=== PATIENT | female | born 1990 | race Caucasian/White ===

== ENCOUNTER 2017-08-07 15:33 | Emergency (ER) | payer MEDICAID, SELFPAY ==
[2017-08-07 15:34] VITALS: BP 155/108; PULSE 75; RESP 16; TEMP 36.7; O2SAT 96; BMI 49.4
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
[2017-08-07] MEDS: Acetaminophen 500 MG Tablet 1000 MG PO (16:28)
[2017-08-07 16:35] LABS: Absolute Lymphocyte Count 2.01 X10^3/ul (0.83-4.51); Absolute Neutrophil Count 3.5 X10^3/uL (2.0-7.7); Basophil# 0.03 X10^3/uL; Basophil% 0.5 % (0-1); Eosinophil# 0.14 X10^3/uL; Eosinophils% 2.3 % (0-5); Hematocrit 45.4 % (37-47); Hemoglobin 15.9 g/dl (12.0-15.0); Lymphocyte # 2.01 X10^3/ul (4.0); Lymphocyte % 32.5 % (19-41); Mean Corpuscular Hgb 30.6 pg (27.0-32.0); Mean Corpuscular Volume 87.5 fL (81-99); Mean Platelet Vol. 10.2 fl (6.2-12.0); Monocyte# 0.53 X10^3/uL; Monocyte% 8.6 % (0-10); Neutrophil # 3.46 X10^3/uL (2.7-7.7); Neutrophil % 55.8 % (47-70); Platelet Count 259 K/mm3 (150-450); RBC Distribution Width CV 12.8 % (11.6-14.6); RBC Distribution Width SD 40.9 fl (35.1-43.9); Red Blood Count 5.19 M/mm3 (4.2-5.4); White Blood Count 6.2 K/mm3 (4.4-11.0)
[2017-08-07 16:39] LABS: Bacteria 0 SEEN /hpf (None Seen); Mucous, Urine 0 SEEN /hpf (<or=2+); Red Blood Cells-Urine 0 SEEN /hpf (0-5)
[2017-08-07 16:40] LABS: POSITIVE COUNT NO; POSITIVE DIFFERENTIAL NO; POSITIVE MORPHOLOGY NO
[2017-08-07 16:46] LABS: Color, Urine Yellow (Yellow); Glucose, Dipstick Normal (Normal); Ketone-Dipstick Negative (Negative); Leukocyte Esterase-Dipstick 25 /ul (Negative); Nitrite-Dipstick Negative (Negative); Occult Blood-Urine 25 /ul (Negative); Protein-Dipstick 30 mg/dl (Negative); Urine Bilirubin Dipstick Negative (Negative); Urine Clarity Clear (Clear); Urine Urobilinogen 1 mg/dl (Normal)
[2017-08-07 16:48] LABS: Internal QC Validated? YES +Cl - CLEAR BKGD; Pregnancy, Urine Negative Negative
[2017-08-07 16:53] LABS: Squamous Epithelial Cells - UA 0-5 SEEN /hpf (5-10)
[2017-08-07 16:54] LABS: White Blood Cells 0-5 SEEN /hpf (0-5)
[2017-08-07 16:55] LABS: Anion Gap 7 (5-15); BUN 14 mg/dL (7-18); BUN/Creat Ratio 18.5 RATIO (10-20); Chloride 109 mmol/L (98-107); Creatinine, Serum 0.76 mg/dL (0.55-1.02); EST Glomerular Filtration Rate 100 mL/min (>60); Est Glom Filt Rate - Afr Amer 121 mL/min (>60); Glucose 93 mg/dL (74-106); Potassium 3.9 mmol/L (3.5-5.1); Sodium Level 140 mmol/L (136-145); Thyroid Stim Hormone (TSH) 0.74 uIU/mL (0.358-3.74)
[2017-08-07 16:57] LABS: Alcohol, Blood (Medical)-Serum < 3.0 mg/dL
[2017-08-07 17:01] LABS: Amphetamine Urine VISTA NEGATIVE (<1000 ng/mL); Barbiturate Urine VISTA NEGATIVE (< 200 ng/mL); Benzodiazepine Urine VISTA POSITIVE (< 200 ng/mL); Cocaine Urine VISTA NEGATIVE (< 300 ng/mL); Ecstacy Urine VISTA NEGATIVE (< 500 ng/mL); Methadone Urine VISTA NEGATIVE (< 300 ng/mL); PCP Urine VISTA NEGATIVE (< 25 ng/mL); THC Urine VISTA POSITIVE (< 50 ng/mL); Vista UDS pH Range 6
--- NOTE | 2017-08-07 17:16 | ED.RN ---
TALKED TO STEFANY SAWYER FROM THE COUNSELING CENTER. HE JUST GOT DOWN TO [facility] SO IT WILL BE SEVERAL HOURS BEFORE HE GETS HERE TO SEE PATIENT
[2017-08-07 18:33] VITALS: BP 114/73; PULSE 56; RESP 16; O2SAT 99
--- NOTE | 2017-08-07 19:51 | NURSING ---
the order for the adacel is not crossing over in the MAR doctor and IS were made aware. paper about the vaccination was given to the pt and understands why she is getting the medication. let the pt know that we are waiting for crisis to come. the crisis counselor is currently at another hospital and unsure on the timeframe. let the pt know that when a room up front becomes available we will move her up front to be closer to the nurses station where she can be monitored.
--- NOTE | 2017-08-07 19:57 | ED.RN ---
STEFANY FROM CRISIS IS HERE TO SEE PATIENT.
--- NOTE | 2017-08-07 20:39 | ED.DEP ---
ED Disposition - Plan for ED Patient: Disposition: Home or Assisted Living Chief Complaint: Mental Health Instructions: ED Depression, ED Laceration All Referrals: Luis Fernando Vásquez MD [Primary Care Provider] - 7 Days for suture removal Additional Instructions: Please continue taking your antidepressants as prescribed. Please follow-up with the grief counselor as being arranged by her grandfather. Please also follow-up as soon as possible with your psychiatrist at the counseling center. Please have your sutures removed from your arm laceration in 7-10 days. You may use antibiotic ointment on the wound to help keep it moist and prevent infection. You may start washing it with gentle soap and water tomorrow. If you notice any pus oozing from it, severe pain, swelling or redness, please come back to the emergency department for a wound check. You may have any healthcare provider remove the sutures for you. You may use [id number] pain medication as needed for pain. If You have any worsening in your condition or any new concerning symptoms, such as suicidal thoughts or feelings, or any other concerns, please return immediately to the emergency department or call 911.
--- NOTE | 2017-08-07 20:42 | DCINST.ED_ITS ---
ED Disposition - Plan for ED Patient: Disposition: Home or Assisted Living Chief Complaint: Mental Health Instructions: ED Depression, ED Laceration All Referrals: Luis Fernando Vásquez MD [Primary Care Provider] - 7 Days for suture removal Additional Instructions: Please continue taking your antidepressants as prescribed. Please follow-up with the grief counselor as being arranged by her grandfather. Please also follow-up as soon as possible with your psychiatrist at the counseling center. Please have your sutures removed from your arm laceration in 7-10 days. You may use antibiotic ointment on the wound to help keep it moist and prevent infection. You may start washing it with gentle soap and water tomorrow. If you notice any pus oozing from it, severe pain, swelling or redness, please come back to the emergency department for a wound check. You may have any healthcare provider remove the sutures for you. You may use [id number] pain medication as needed for pain. If You have any worsening in your condition or any new concerning symptoms, such as suicidal thoughts or feelings, or any other concerns, please return immediately to the emergency department or call 911.
[2017-08-07 21:17] VITALS: BP 147/68; PULSE 76; RESP 16; O2SAT 98
== END 2017-08-07 21:18 | disposition home or self-care (01) ==
PROVIDERS: Emergency Provider Emergency Medicine; Family Provider Family Medicine; PCP Family Medicine
DX: S51.812A Laceration without foreign body of left forearm, initial encounter (principal); X78.8XXA Intentional self-harm by other sharp object, initial encounter; Y93.9 Activity, unspecified; Y92.9 Unspecified place or not applicable; Y99.9 Unspecified external cause status; Z23 Encounter for immunization; E28.2 Polycystic ovarian syndrome; F32.9 Major depressive disorder, single episode, unspecified; F41.9 Anxiety disorder, unspecified; E66.9 Obesity, unspecified; Z79.899 Other long term (current) drug therapy
CPT/HCPCS: 12034; 36415; 80048; 80307; 80320; 81001; 81025; 84443; 85025; 90471; 90715; 99284; G0480

== ENCOUNTER → 2017-09-01 18:44 | Outpatient (CLI) | payer MEDICAID, SELFPAY ==
[2017-09-07 11:37] LABS: HPV Reflexed? NOT INDICATED
== END ==
PROVIDERS: Family Provider Family Medicine; PCP Family Medicine; Visit Provider Obstetrics & Gynecology
DX: Z12.4 Encounter for screening for malignant neoplasm of cervix (principal)
CPT/HCPCS: 88175; G0145

== ENCOUNTER → 2017-09-02 13:45 | Outpatient (CLI) | payer MEDICAID, SELFPAY ==
[2017-09-02 15:25] LABS: Cholesterol 195 mg/dL (200); Glucose 77 mg/dL (74-106); High Density Lipoprotein 39 mg/dL; Thyroid Stim Hormone (TSH) 1.39 uIU/mL (0.358-3.74); Triglycerides 253 mg/dL; Very Low Density Lipoprotein 51 mg/dL (5-40)
[2017-09-07 11:34] LABS: Vitamin D 1,25-Dihydroxy 44.8 pg/mL (19.9-79.3)
== END ==
PROVIDERS: Family Provider Family Medicine; PCP Family Medicine; Visit Provider Obstetrics & Gynecology
DX: E01.0 Iodine-deficiency related diffuse (endemic) goiter (principal); Z12.4 Encounter for screening for malignant neoplasm of cervix; Z13.220 Encounter for screening for lipoid disorders; Z13.1 Encounter for screening for diabetes mellitus; Z13.21 Encounter for screening for nutritional disorder
CPT/HCPCS: 36415; 80061; 82652; 82947; 84443

== ENCOUNTER → 2017-09-07 10:57 | Outpatient (CLI) | payer MEDICAID, SELFPAY ==
--- NOTE | 2017-09-07 10:58 | US_ITS ---
STUDY: THYROID ULTRASOUND REASON FOR EXAM: Female, 26 years old. Thyromegaly TECHNIQUE: Ultrasound evaluation of the thyroid was performed with real-time and static bishop-scale imaging. COMPARISON: None. FINDINGS: RIGHT LOBE: The right lobe of the thyroid gland measures 5.8 x 1.6 x 1.5 cm. There is a homogeneous echotexture. There are no demonstrated solid, cystic or complex lesions. LEFT LOBE: The left lobe of the thyroid gland measures 5.7 x 1.4 x 1.4 cm. There is a homogeneous echotexture. There are no demonstrated solid, cystic or complex lesions. ISTHMUS: The isthmus measures 3 mm. The regional lymph nodes are normal. US/Thyroid IMPRESSION: Normal ultrasound examination of the thyroid. Electronically Signed: Kwan Corey DO at 8:17 EDT Tel , Service support ,
== END ==
PROVIDERS: Family Provider Family Medicine; PCP Family Medicine; Visit Provider Obstetrics & Gynecology
DX: E01.0 Iodine-deficiency related diffuse (endemic) goiter (principal); Z12.4 Encounter for screening for malignant neoplasm of cervix; Z13.220 Encounter for screening for lipoid disorders; Z13.1 Encounter for screening for diabetes mellitus; Z13.21 Encounter for screening for nutritional disorder
CPT/HCPCS: 76536

== ENCOUNTER → 2018-10-02 15:24 | Outpatient (CLI) | payer SELFPAY ==
[2018-10-02 17:25] LABS: Amphetamine Urine VISTA NEGATIVE (<1000 ng/mL); Barbiturate Urine VISTA NEGATIVE (< 200 ng/mL); Benzodiazepine Urine VISTA NEGATIVE (< 200 ng/mL); Cocaine Urine VISTA NEGATIVE (< 300 ng/mL); Ecstacy Urine VISTA NEGATIVE (< 500 ng/mL); Methadone Urine VISTA NEGATIVE (< 300 ng/mL); PCP Urine VISTA NEGATIVE (< 25 ng/mL); THC Urine VISTA POSITIVE (< 50 ng/mL); Vista UDS pH Range 7
[2018-10-10 17:59] LABS: Amphetamine Ur Confirm Negative (Cutoff=500)
== END ==
LOC: LAB 15:28
PROVIDERS: Family Provider Family Medicine; PCP Family Medicine; Referring Provider Psychiatry & Neurology Psychiatry; Visit Provider Psychiatry & Neurology Psychiatry
DX: Z79.899 Other long term (current) drug therapy (principal); F19.10 Other psychoactive substance abuse, uncomplicated
CPT/HCPCS: 80307; 80346

== ENCOUNTER → 2019-03-22 16:47 | Outpatient (CLI) | payer SELFPAY ==
[2019-03-22 17:26] LABS: Amphetamine Urine VISTA NEGATIVE (<1000 ng/mL); Barbiturate Urine VISTA NEGATIVE (< 200 ng/mL); Benzodiazepine Urine VISTA NEGATIVE (< 200 ng/mL); Cocaine Urine VISTA NEGATIVE (< 300 ng/mL); Ecstacy Urine VISTA NEGATIVE (< 500 ng/mL); Methadone Urine VISTA NEGATIVE (< 300 ng/mL); PCP Urine VISTA NEGATIVE (< 25 ng/mL); THC Urine VISTA POSITIVE (< 50 ng/mL); Vista UDS pH Range 7
== END ==
PROVIDERS: Family Provider Family Medicine; PCP Family Medicine; Referring Provider Psychiatry & Neurology Psychiatry; Visit Provider Psychiatry & Neurology Psychiatry
DX: F19.10 Other psychoactive substance abuse, uncomplicated (principal); R53.83 Other fatigue; Z79.899 Other long term (current) drug therapy
CPT/HCPCS: 80307

== ENCOUNTER 2019-06-06 11:28 | Emergency (ER) | payer SELFPAY ==
[2019-06-06 11:29] VITALS: BP 169/112; PULSE 98; RESP 16; TEMP 36.7; O2SAT 99; BMI 50.1
--- NOTE | 2019-06-06 11:45 | ED.DCSUM_ITS ---
History of Present Illness Chief Complaint: Abscess Informant: Patient Onset: Days - 3-4 Context: Gradual Onset Timing: Continuous Quality: sore Location: right axilla Current Severity: Moderate Maximum Severity: Moderate Worsened by: palpation Relieved by: leaving it alone Associated Symptoms: drained yellow material at one point Narrative: Started as a pimple in her right armpit. Has been growing and getting larger and more painful. No systemic symptoms. Drained a small amount of purulent discharge out of there, but now it will not drain. Never had this before. Does shave her axillary areas. Prior similar symptoms: No Recent Illness/Hospitalization: No - Past Medical History (1) PCOS (polycystic ovarian syndrome) Status: Chronic Comment: weight loss and then femara Past Medical History - Allergies and Home Meds Allergies/Adverse Reactions: Allergies buspirone [From BuSpar] Allergy (Verified 06/06/19 11:28) Nausea Primary Care Physician: Luis Fernando Vásquez MD [NON-STAFF] - Lives: With Family Smoking Status: Current every day smoker Review of Systems General: Denies: Chills, Fever, Sweats Musculoskeletal: Reports: Extremity Pain - R axilla Skin: Reports: Abscess. Denies: Rash Neurological: Denies: Weakness, Numbness Physical Exam Vital Signs/Narrative: Vital Signs Temp Pulse Resp BP Pulse Ox 06/06/19 11:29 98.1 F 98 16 169/112 H 99 Inital Vital Signs reviewed: Yes General: Well nourished, Well developed, Obese, No Acute Distress - well- appearing Head: Normocephalic, Atraumatic Skin: Normal color, No rash, No Trauma, - - right axillary abscess, approx 4-5cm diameter with papular area more anteriorly at perimeter of abscess; no spontaneous drainage able to be expressed from anywhere. Neurological: Alert, Oriented x3, Cranial nerves II-XII grossly intact, Normal Strength, Normal Sensation, Normal Gait Psychological: Normal affect, Normal Mood Diagnostic/Tx/Re-eval - Medical Decision Making Abscess was opened and drained, deloculated, irrigated, packed. She states she did drink quite a bit of pus yesterday. Explained why it was not loaded with pus today. She needed incision and drainage, will place her on Bactrim, first dose given here, she tolerated procedure very well and was not in a lot of pain, advised to return and advised to remove packing in 48 hours Procedures Procedure(s): Incision and drainage complex, cutaneous abscess right axilla. Sterile prep and drape with isopropanol for local anesthesia, 7 cc 1% plain lidocaine, followed by chlorhexidine and incision with #11 blade at papular area. This was at the periphery of the large abscess cavity, so another incision was made centrally which was also anesthetized. Small amount of purulent material was expressed, but the abscess cavity was large. It was deloculated. It was irrigated and packed with 1/4 inch sterile gauze strip and dressed with bacitracin. Tolerated well, no complications. ED Disposition - Plan for ED Patient: Disposition: Home or Assisted Living Diagnosis: Cutaneous abscess of axilla Instructions: ABSCESS, Incision and Drainage, MRSA SKIN INFECTION, Suspected or Confirmed Prescriptions: Sulfamethoxazole/Trimethoprim [Bactrim Ds Tablet] 1 ea PO BID 10 Days #20 tab Transmission Status: Pending to [facility] Referrals: Luis Fernando Vásquez MD [NON-STAFF] - 3-5 Days if not improving Additional Instructions: Remove strip gauze in 2 days and discard, change dressing daily and after urine you remove the strip gauze. Place antibiotic ointment on the gauze when you change it. If getting worse, return to ER.
[2019-06-06] MEDS: Smz/Tmp Ds Tablet 1 TABLET PO (11:50)
[2019-06-06] MEDS: Ondansetron ODT 4 MG Tablet 8 MG PO (13:22)
[2019-06-06 13:26] VITALS: RESP 18
== END 2019-06-06 13:28 | disposition home or self-care (01) ==
PROVIDERS: Emergency Provider Emergency Medicine
DX: L02.411 Cutaneous abscess of right axilla (principal); E28.2 Polycystic ovarian syndrome; F17.200 Nicotine dependence, unspecified, uncomplicated
CPT/HCPCS: 10060; 99283

== ENCOUNTER → 2019-09-04 | Outpatient (CLI) | payer BC, SELFPAY ==
[2019-09-04 08:32] VITALS: BMI 57.9
[2019-09-04 12:24] LABS: Internal QC Validated? YES +Cl - CLEAR BKGD; Pregnancy, Serum, hCG Quali. NEGATIVE Negative
[2019-09-04 12:36] LABS: Hemoglobin A1c 5.2 % (4.2-6.3)
[2019-09-04 12:46] LABS: ALB/GLOB Ratio 0.9 RATIO (0.9-2.4); AST(SGOT) 18 U/L (15-37); Alanine Aminotransfer ALT/SGPT 31 U/L (13-56); Albumin, Serum 3.4 g/dL (3.2-5.0); Alkaline Phosphatase 59 U/L (45-117); Anion Gap 8 (5-15); BUN 16 mg/dL (7-18); BUN/Creat Ratio 20.4 RATIO (10-20); Calcium,Total 8.6 mg/dL (8.5-10.1); Chloride 111 mmol/L (98-107); Creatinine, Serum 0.78 mg/dL (0.55-1.02); EST Glomerular Filtration Rate 94 mL/min (>60); Est Glom Filt Rate - Afr Amer 114 mL/min (>60); Globulin 3.6 g/dL (2.2-4.2); Glucose 96 mg/dL (74-106); Potassium 3.7 mmol/L (3.5-5.1); Prolactin 9.3 ng/mL; Sodium Level 141 mmol/L (136-145); Thyroid Stim Hormone (TSH) 2.05 uIU/mL (0.358-3.74)
[2019-09-07 08:07] LABS: Testosterone, Free 0.41 ng/dL (0.10-0.85); Testosterone, Total 34 ng/dL (8-48)
[2019-09-07 12:12] LABS: DHEA Sulfate 68.2 ug/dL (84.8-378.0)
== END | disposition home or self-care (01) ==
PROVIDERS: Referring Provider Internal Medicine Endocrinology, Diabetes & Metabolism; Visit Provider Internal Medicine Endocrinology, Diabetes & Metabolism
DX: N91.1 Secondary amenorrhea (principal)
CPT/HCPCS: 36415; 80053; 82627; 83036; 84146; 84402; 84403; 84443; 84703; 82626

== ENCOUNTER 2019-11-21 11:15 | Emergency (ER) | payer BC, SELFPAY ==
[2019-10-23 10:01] VITALS: BMI 50.1
[2019-11-21 11:17] VITALS: BP 185/120; PULSE 74; RESP 20; TEMP 36; O2SAT 98; BMI 56.5
[2019-11-21] MEDS: Ondansetron 4 MG/2 ML Vial IV (12:03)
[2019-11-21] MEDS: Morphine 4 MG/ML Syringe IV (12:04)
[2019-11-21] MEDS: 0.9% Normal Saline 1,000 ML 1000 ML IV (12:05)
--- NOTE | 2019-11-21 12:08 | ED.VISSUMM ---
- ER Visit Summary Date of Service: 11/21/19 Chief Complaint: Abdominal pain History of Present Illness: The patient is a 28 F who presents with abdominal pain that is been getting worse over the past 8 days. Patient states the pain is been constant but waxes and wanes. Patient describes pain as burning and cramping. Patient states the pain is diffuse across her abdomen. Patient states the pain is worse with eating. Patient states the pain gets worse immediately when she eats. Patient admits to nausea, vomiting, and diarrhea. Patient denies any hematemesis or coffee-ground emesis. Patient denies any melena or hematochezia. Patient denies any dysuria or hematuria. Physical Examination: Vital signs are stable. Patient is afebrile. Patient is in no acute distress. Oral mucosa is pink and moist. Neck is supple. Trachea is midline. There is no JVD. Heart was regular rate and rhythm. Lungs are clear and equal bilaterally. Abdomen is soft. Bowel sounds are normal. There is diffuse tenderness. There is no rebound or guarding noted. Cranial nerves II through XII are intact. There are no focal motor or sensory deficits noted. Extremities are intact. There is no calf tenderness or edema. Test Results: CBC, comprehensive metabolic profile, hCG, and urinalysis were obtained were all within normal limits. Emergency Department Course and Treatment: Patient was given IV fluids, morphine, and Zofran here. Patient was feeling better on reevaluation. Patient was given a prescription for Zofran ODT. Patient was instructed to start with a liquid diet and advance to a bland diet and then to a regular diet as she feels better. Patient was instructed to drink small sips of water frequently. Patient was instructed to return if worse in any way. Patient understood and was agreeable with the plan. All questions were answered. Disposition: Discharge home Impression: 1. Abdominal pain 2. Nausea, vomiting, and diarrhea This note was generated with [employer] dictation software. It may contain incorrect words, spelling, and punctuation that were not noted in review of the chart prior to signing ED Disposition - Plan for ED Patient: Disposition: Home or Assisted Living Diagnosis: Abdominal pain, Nausea, vomiting, and diarrhea Instructions: ED Abdominal Pain Unkn Cause Fem, ED Nausea Vomiting Adult Prescriptions: Ondansetron [Zofran Odt] 4 mg PO Q8H PRN PRN #10 tab PRN Reason: Nausea Prescription Printed Referrals: Care Physician,No Primary [Primary Care Provider] -
[2019-11-21 12:09] LABS: Absolute Lymphocyte Count 1.91 X10^3/uL (0.83-4.51); Absolute Neutrophil Count 7.6 X10^3/uL (2.0-7.7); Basophil# 0.06 X10^3/uL; Basophil% 0.6 % (0-1); Eosinophil# 0.13 X10^3/uL; Eosinophils% 1.3 % (0-5); Hematocrit 46.7 % (37-47); Hemoglobin 15.8 g/dL (12.0-15.0); Lymphocyte # 1.91 X10^3/ul (4.0); Lymphocyte % 18.4 % (19-41); Mean Corp Hgb Conc 33.8 g/dL (32-36); Mean Corpuscular Hgb 29.9 pg (27.0-32.0); Mean Corpuscular Volume 88.3 fL (81-99); Mean Platelet Vol. 9.6 fl (6.2-12.0); Monocyte% 5.8 % (0-10); NRBC Flagged by Analyzer 0 % (0-5); Neutrophil # 7.63 X10^3/uL (2.7-7.7); Neutrophil % 73.3 % (47-70); Platelet Count 313 K/mm3 (150-450); RBC Distribution Width CV 12.3 % (11.6-14.6); RBC Distribution Width SD 39.9 fl (35.1-43.9); Red Blood Count 5.29 M/mm3 (4.2-5.4); White Blood Count 10.4 K/mm3 (4.4-11.0)
[2019-11-21 12:34] LABS: AST(SGOT) 37 U/L (15-37); Alanine Aminotransfer ALT/SGPT 57 U/L (13-56); Albumin, Serum 3.8 g/dL (3.2-5.0); Alkaline Phosphatase 52 U/L (45-117); Anion Gap 8 (5-15); BUN 16 mg/dL (7-18); BUN/Creat Ratio 18.2 RATIO (10-20); Calcium,Total 9.5 mg/dL (8.5-10.1); Chloride 111 mmol/L (98-107); Creatinine, Serum 0.88 mg/dL (0.55-1.02); EST Glomerular Filtration Rate 82 mL/min (>60); Est Glom Filt Rate - Afr Amer 99 mL/min (>60); Estimated Creatinine Clearance 94.21 ml/min; Globulin 3.7 g/dL (2.2-4.2); Glucose 116 mg/dL (74-106); Internal QC Validated? YES +Cl - CLEAR BKGD; Potassium 3.8 mmol/L (3.5-5.1); Pregnancy, Serum, hCG Quali. NEGATIVE Negative; Protein, Total 7.5 g/dL (6.4-8.2); Sodium Level 141 mmol/L (136-145)
[2019-11-21 13:56] LABS: Mucous, Urine 0 SEEN /hpf (<or=2+); Red Blood Cells-Urine 0 SEEN /hpf (0-5); White Blood Cells 0 SEEN /hpf (0-5)
[2019-11-21 13:58] LABS: Color, Urine Yellow (Yellow); Glucose, Dipstick Normal (Normal); Ketone-Dipstick Negative (Negative); Leukocyte Esterase-Dipstick Negative /ul (Negative); Nitrite-Dipstick Negative (Negative); Occult Blood-Urine 10 /ul (Negative); Protein-Dipstick Negative (Negative); Urine Bilirubin Dipstick Negative (Negative); Urine Clarity Cloudy (Clear); Urine Urobilinogen Normal (Normal)
[2019-11-21 14:07] LABS: Amorphous Sediment 3+; Bacteria 1+ /hpf (None Seen); Squamous Epithelial Cells - UA 0-5 SEEN /hpf (5-10)
[2019-11-21 15:04] VITALS: BP 138/79; PULSE 74; PULSE 76; RESP 18; RESP 20; TEMP 36; O2SAT 98
== END 2019-11-21 15:05 | disposition home or self-care (01) ==
PROVIDERS: Emergency Provider Emergency Medicine
DX: R10.9 Unspecified abdominal pain (principal); R11.2 Nausea with vomiting, unspecified; R19.7 Diarrhea, unspecified; E28.2 Polycystic ovarian syndrome; F31.9 Bipolar disorder, unspecified; E66.9 Obesity, unspecified; Z72.0 Tobacco use; Z79.899 Other long term (current) drug therapy
CPT/HCPCS: 80053; 81001; 84703; 85025; 96361; 96374; 96375; 99283; J7030; A4216; J2405

== ENCOUNTER 2021-08-22 17:13 | Emergency (ER) | payer SELFPAY ==
[2021-08-22 17:14] VITALS: BP 206/122; PULSE 94; RESP 18; TEMP 36.3; O2SAT 98; BMI 54.8
[2021-08-22 17:16] VITALS: BP 206/122; PULSE 94; RESP 18; TEMP 36.3; O2SAT 98
--- NOTE | 2021-08-22 17:35 | ED.VIS.DENTA ---
HPI <MAURICIO NAIR - Last Filed: 08/22/21 22:03> History of Present Illness Chief Complaint: Dental Informant: patient Onset/Context/Timing Onset: Yesterday Current Severity: 12/27 Associated Symptoms Assocated Symptom - Dental: face swelling Narrative Narrative: Patient presents secondary to dental pain following bilateral upper and lower wisdom tooth extraction yesterday. Patient states pain was well controlled until the middle of last night, now complains of pain radiating to ears bilaterally. Patient states last dose of ibuprofen 600 mg was at 11 AM. Rating pain 7 out of 10. Patient denies fever, chills, nausea, or vomiting. PFSH <MAURICOI NAIR - Last Filed: 08/22/21 22:03> [facility] Medical History (Updated 08/22/21 @ 17:[address] Dora Payne MD) Depression Hormone deficiency PCOS (polycystic ovarian syndrome) Home Medications topiramate 25 mg PO BID 06/06/19 [History Last Taken Unknown] sertraline 100 mg tablet 150 mg PO DAILY tab 09/04/19 [History Last Taken Unknown] dextroamphetamine-amphetamine 30 mg PO DAILY 11/21/19 [History Last Taken Unknown] ondansetron 4 mg PO Q8H PRN PRN #10 tab 11/21/19 [Rx Last Taken Unknown] amoxicillin-pot clavulanate 1 tab PO BID 08/22/21 [History Last Taken Unknown] dexamethasone 2.25 mg PO DAILY 08/22/21 [History Last Taken Unknown] hydrocodone-acetaminophen 1 tab PO Q6H PRN 3 Days #10 tab 08/22/21 [Rx Last Taken Unknown] ibuprofen 600 mg PO Q6H PRN PRN 08/22/21 [History Last Taken Unknown] Allergy/AdvReac Type Severity Reaction Status Date / Time buspirone [From BuSpar] Allergy Nausea Verified 08/22/21 17:13 Family History Mother Cancer cervical Aunt Cancer cervical Grandmother Cancer cervical Other Diabetes Heart disease Surgical History History of cholecystectomy Social History Smoking Status: Current every day smoker tobacco type: cigarettes alcohol intake: never substance use type: does not use caffeine: Yes what type of physical activity do you participate in: walking and bicycling frequency: 3-4 times per week seatbelt use: always do you feel safe at home: Yes additional social history: [employer] Patient is currently unemployed ROS <MAURICIO NAIR - Last Filed: 08/22/21 22:03> ROS ED Constitutional Constitutional ED: Denies chills or fever(s) ENT ENT ED: Reports as per HPI, dental pain and ear pain bilateral Cardiovascular Cardiovascular: Denies chest pain Respiratory/Chest Respiratory/Chest: Denies cough or dyspnea Gastrointestinal Gastrointestinal: Denies nausea or vomiting Genitourinary Genitourinary ED: Denies dysuria Musculoskeletal Musculoskeletal: Denies myalgias Integumentary Denies rash Neurologic Neurologic: Denies headache(s) or weakness Psychiatric Psychiatric: Denies anxiety or depression EXAM <MAURICIO NAIR - Last Filed: 08/22/21 22:03> Physical Exam Const Vital Signs: 08/22/21 17:14 08/22/21 17:16 08/22/21 18:00 Temperature 97.4 F L 97.4 F L Temperature Source Temporal Temporal Pulse Rate 94 94 Respiratory Rate 18 18 Blood Pressure 206/122 H 206/122 H 173/92 H Blood Pressure Mean 150 150 119 Pulse Ox 98 98 Oxygen Delivery Method Room Air Room Air Positive well nourished and well developed General Appearance ED: well developed HEENT Reports normocephalic and moist oral mucous membranes HEENT Narrative: Minimal swelling around areas of extraction. Mouth: other Eyes PERRL and EOMs intact bilaterally Neck no lymphadenopathy and supple Resp normal respiratory effort and clear to auscultation bilaterally Cardio regular rate and regular rhythm GI non-tender Palpation: soft Neuro oriented x3 Sensorium / Orientation: alert Psych mental status grossly normal Skin no rashes or lesions noted <Dr. Dora Payne MD - Last Filed: 08/22/21 18:25> Physical Exam Const Vital Signs: 08/22/21 17:14 08/22/21 17:16 08/22/21 18:00 Temperature 97.4 F L 97.4 F L Temperature Source Temporal Temporal Pulse Rate 94 94 Respiratory Rate 18 18 Blood Pressure 206/122 H 206/122 H 173/92 H Blood Pressure Mean 150 150 119 Pulse Ox 98 98 Oxygen Delivery Method Room Air Room Air MDM <MAURICIO NAIR - Last Filed: 08/22/21 22:03> [facility] Treatment and Re-Evaluation Comments:: On arrival patient noted to have elevated blood pressure, repeat blood pressure trending downward at 191/127. Patient given dose of [place] prior to discharge and prescription for [place]. Patient states she already has follow-up scheduled at [facility] in [place] on the . Patient encouraged to keep that appointment. <Dr. Dora Payne MD - Last Filed: 08/22/21 18:25> [facility] Treatment and Re-Evaluation Comments:: Patient seen and evaluated with [employer] student. Patient presents secondary to increased pain after having 3 teeth extracted yesterday. Patient is currently on 600 mg ibuprofen along with antibiotics. Patient sitting upright in bed no acute distress. She speaking full sentences without difficulty. Head neck examination reveals dental extraction sites to be clean with no sign of infection. No trismus. Heart is regular rate and rhythm. Lung sounds are clear. Abdomen is soft and nontender. OARRS report was performed. Patient's had no narcotics. Patient be given a short course of [place] for pain control. Blood pressure significantly elevated on arrival at 206/122. At time of discharge systolic pressure was in the 170s. Encouraged to keep a close eye on this at home. Patient to follow with her dentist next week and return to the ER for worsening symptoms or concerns. Discharge Plan Triage Chief Complaint: Dental ED Provider: Dora Payne Dx/Rx/DC Orders Clinical Impression: Pain, dental Instructions: ED Dental Pain Prescriptions: New hydrocodone-acetaminophen 5-325 mg tablet 1 tab PO Q6H PRN (Reason: pain) 3 Days Qty: 10 RF: 0 No Action sertraline 100 mg tablet 150 mg PO DAILY RF: 0 topiramate 25 MG tablet 25 mg PO BID RF: 0 dextroamphetamine-amphetamine 30 MG capsule,extended release 24hr 30 mg PO DAILY RF: 0 ondansetron 4 MG tablet 4 mg PO Q8H PRN PRN (Reason: Nausea) Qty: 10 RF: 0 dexamethasone 0.75 mg tablet 2.25 mg PO DAILY RF: 0 ibuprofen 600 mg tablet 600 mg PO Q6H PRN PRN (Reason: Pain) RF: 0 amoxicillin-pot clavulanate 875-125 mg tablet 1 tab PO BID RF: 0 Primary Care Provider: Care Physician,No Primary Referrals: Care Physician,No Primary [Primary Care Provider] - Activity Restrictions/Additional Instructions: Follow-up with your dentist early next week if not improving. Disposition Disposition: Home, Self Care Discharge Date/Time: 08/22/21 18:00
[2021-08-22] MEDS: HYDROcodone Bitartrate/Apap 5/325 Tablet PO (17:59)
[2021-08-22 18:00] VITALS: BP 173/92
--- NOTE | 2021-08-22 18:01 | CM.ED ---
SW Note Referral Source: Case Find Referral Reason: No PCP and No Insurance SW met with patient briefly as she was being discharged. SW provided Healthcare Provider Directory as patient has no PCP and SW provided patient with financial aid director packet which included the medicaid application and information on [facility]. Patient appreciative. SW remains available if needs arise. Plan: Resources Provided Mallorie YEBOAH
== END 2021-08-22 18:00 | disposition home or self-care (01) ==
PROVIDERS: Emergency Provider Emergency Medicine; Visit Provider Emergency Medicine
DX: K08.89 Other specified disorders of teeth and supporting structures (principal); F32.A Depression, unspecified; F17.210 Nicotine dependence, cigarettes, uncomplicated; Z79.899 Other long term (current) drug therapy
CPT/HCPCS: 99283

== ENCOUNTER 2023-01-13 02:05 | Emergency (ER) | payer BC, SELFPAY ==
--- NOTE | 2023-01-13 05:39 | EDS_ITS ---
HPI History of Present Illness Informant: patient Onset/Context/Timing Onset: Days Context: Gradual Onset Timing: Continuous Current Severity: Mild Maximum Severity: Mild Narrative Narrative: 32-year-old female history of ADHD and bipolar.'s concern she has a abscess on her left lateral chest wall. Its been there about 3 days. She squeezed it and remove the little bit of blood. No pus. No fever. Denies IV drug abuse. Prior similar symptoms: Yes Recent Illness/Hospitalization: No PFSH PFSH Medical History (Updated 01/13/23 @ 05:[address] Markell Jacques MD) Depression Hormone deficiency PCOS (polycystic ovarian syndrome) Home Medications topiramate 25 mg tablet 25 mg PO BID 06/06/19 [History Last Taken Unknown] sertraline 100 mg tablet 150 mg PO DAILY 09/04/19 [History Last Taken Unknown] dextroamphetamine-amphetamine ER 30 mg 24hr capsule,extend release 30 mg PO DAILY 11/21/19 [History Last Taken Unknown] ondansetron 4 mg disintegrating tablet 4 mg PO Q8H PRN PRN Nausea #10 tabs 11/21/19 [Rx Last Taken Unknown] amoxicillin 875 mg-potassium clavulanate 125 mg tablet 1 tab PO BID 08/22/21 [History Last Taken Unknown] dexamethasone 0.75 mg tablet 2.25 mg PO DAILY 08/22/21 [History Last Taken Unknown] hydrocodone-acetaminophen 5-325mg 5mg-325mg 1 tab PO Q6H PRN pain 3 days #10 tabs 08/22/21 [Rx Last Taken Unknown] ibuprofen 600 mg tablet 600 mg PO Q6H PRN PRN Pain 08/22/21 [History Last Taken Unknown] Allergy/AdvReac Type Severity Reaction Status Date / Time buspirone [From BuSpar] Allergy Nausea Verified 08/22/21 17:13 Family History Mother Cancer cervical Aunt Cancer cervical Grandmother Cancer cervical Other Diabetes Heart disease Surgical History History of cholecystectomy Social History Smoking Status: Current every day smoker tobacco type: cigarettes alcohol intake: never substance use type: does not use caffeine: Yes what type of physical activity do you participate in: walking and bicycling frequency: 3-4 times per week seatbelt use: always do you feel safe at home: Yes additional social history: 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 No recent illness. No fever. Review of Systems ROS Unobtainable: Denies due to encephalopathy Constitutional Constitutional ED: Denies chills or fever(s) Eyes Eyes: Denies blurry vision ENT ENT ED: Denies ear pain Cardiovascular Cardiovascular: Denies chest pain Respiratory/Chest Respiratory/Chest: Denies cough Gastrointestinal Gastrointestinal: Denies abdominal pain Genitourinary Genitourinary ED: Denies dysuria or hematuria Musculoskeletal Musculoskeletal: Denies arthralgias Integumentary Reports abscess Neurologic Neurologic: Denies headache(s) Psychiatric Psychiatric: Denies anxiety Endocrine Endocrinology: Denies cold intolerance Hematologic/Lymphatic Hematologic/Lymphatic: Reports none Allergic/Immunologic Allergic/Immunologic ED: Denies mouth swelling or tongue swelling EXAM Physical Exam Narrative Exam Narrative: Well-appearing 32-year-old female. Vital signs stable afebrile. She does not look septic or toxic. No distress. HEENT exam unremarkable. Lungs clear. Heart regular rhythm no murmur. Abdomen soft nontender. Moving all 4 extremities. Left lateral rib cage chest wall there is about a dime to quarter size area that looks like possibly early abscess. There is no fluctuance there is minimal redness. There does appear to be firm, indurated infected tissue below it. Neurologically she is awake and alert with no focal motor deficits. Const Positive well nourished and well developed; Negative for cachectic, contractures or unkempt General Appearance ED: well developed and NAD; Negative for unkempt, cachectic, contractures, cyanotic, diaphoretic or pallor Nutritional Appearance: Negative for cachectic HEENT Reports moist mucous membranes; Denies dry mucous membranes Negative for trauma or tenderness Mouth ED: No dry mucous membranes Mouth: No dry mucous membranes Eyes PERRL and EOMs intact bilaterally General Eye ED: Negative for pale conjunctiva, scleral icterus or other Neck no lymphadenopathy, supple and no JVD General: Negative for tenderness Lymph Lymphatic: Negative for other Chest Wall palpation of chest normal; Negative for inspection of chest normal Chest Narrative: Left lateral chest wall abscess. No fluctuance. Minimal redness. Firm indurated tissue. Resp normal respiratory effort and clear to auscultation bilaterally Effort and Inspection: Negative for retractions Auscultation: Negative for rales, rhonchi or wheezes Cardio regular rate, regular rhythm, S1 normal heart sound, S2 normal heart sound and no murmurs GI non-tender, non-distended and no masses Inspection: Negative for abdominal distention Auscultation: normoactive bowel sounds Palpation: soft; Negative for tender or guarding Back/Spine no CVA tenderness General Back: Negative for CVA tenderness Cervical Spine: Negative for cervical spine tenderness Thoracic Spine / Upper Back: Negative for thoracic spinal tenderness Extremity normal to inspection General Extremety ED: Negative for edema or tenderness General Extremity: Negative for edema Neuro oriented x3 and CN's II-XII intact bilaterally Sensorium / Orientation: alert; Negative for orientation impaired, lethargic or stuporous Motor Exam: strength 5/5 throughout Psych mental status grossly normal Appearance: Negative for unkempt Attitude: No agitated Mood & Affect: Negative for depressed, anxious or tearful Skin no rashes or lesions noted and no wounds Skin Narrative: Left lateral rib cage early abscess. No fluctuance. Mild redness. No pus. General Skin Exam: elasticity normal; Negative for jaundice or pallor Lesions: No lesion noted Rashes: No rashes noted Trauma: Negative for abrasion Wounds: Negative for wounds noted MDM MDM MDM Narrative Medical decision making narrative: 32-year-old with possible early abscess left lateral chest wall. She and I discussed treatment options. She wanted me to try to incise and drain it. I explained to her that I was glad to do that but we may not get any pus. Area was cleaned with iodine. Local anesthetized with Xylocaine. Made a 1 cm horizontal incision. Probed the wound. There was no pus and minimal blood. I think this is infected tissue but not a walled off abscess. She tolerated it well. It was packed with gauze. She was instructed on wound care. Will be placed on Keflex 4 times a day for 10 days. Motrin and Tylenol for pain. Return if worse. Follow-up to ensure its improving. History & Record Review Discussion w/independent historian: Patient Procedures Other Procedures Procedure(s): Left chest wall early abscess. Cleaned with iodine. Local anesthetized with Xylocaine. Made a 1 cm horizontal incision. Probed the wound. There was no pus. No significant blood. I believe this to be an early abscess but no walled off pus pocket. Packed with 5 inches of half-inch plain gauze. Instructed on wound care. Discharge Plan Triage ED Provider: Markell Jacques Dx/Rx/DC Orders Clinical Impression: Abscess of chest wall, Encounter for incision and drainage procedure Instructions: Abscess Drainage Prescriptions: No Action sertraline 100 mg tablet 150 mg PO DAILY topiramate 25 MG tablet 25 mg PO BID dextroamphetamine-amphetamine 30 MG capsule,extended release 24hr 30 mg PO DAILY ondansetron 4 MG tablet 4 mg PO Q8H PRN PRN (Reason: Nausea) Qty: 10 0RF dexamethasone 0.75 mg tablet 2.25 mg PO DAILY Patient Comments: TAKE 5 TABLETS on morning OF appt, TAKE 4 TABLETS morning OF 2nd day and Then 3 (THREE) TABLET EVERY DAY step down Rx Instructions: 2 DAYS LEFT ibuprofen 600 mg tablet 600 mg PO Q6H PRN PRN (Reason: Pain) Patient Comments: TAKE 1 TABLET BY MOUTH EVERY 6 TO 8 HOURS amoxicillin-pot clavulanate 875-125 mg tablet 1 tab PO BID Patient Comments: TAKE 2 TABLETS AT ONCE followed by ONE TABLET TWICE DAILY hydrocodone-acetaminophen 5-325 mg tablet 1 tab PO Q6H PRN (Reason: pain) 3 Days Qty: 10 0RF Primary Care Provider: Luis Fernando Vásquez Referrals: Luis Fernando Vásquez MD [Primary Care Provider] - Activity Restrictions/Additional Instructions: Patient history of Keflex 500 mg 4 times a day. The prescription was handwritten due to us being on downtime for the computers. Warm compresses. Follow-up with not improving or return if worse. Disposition Disposition: Home, Self Care
== END 2023-01-13 03:00 | disposition home or self-care (01) ==
PROVIDERS: Emergency Provider Emergency Medicine; PCP Family Medicine; Visit Provider Emergency Medicine
DX: L02.213 Cutaneous abscess of chest wall (principal); F31.9 Bipolar disorder, unspecified; F90.9 Attention-deficit hyperactivity disorder, unspecified type; F17.210 Nicotine dependence, cigarettes, uncomplicated; Z79.899 Other long term (current) drug therapy
CPT/HCPCS: 10061; 10060; 99284

== ENCOUNTER 2025-01-02 18:37 | Inpatient (IN) | payer SELFPAY ==
[2025-01-02] VITALS (25 sets, daily range): BP systolic 93–155; BP diastolic 52–97; PULSE 54–88; RESP 14–26; TEMP 35.9–37.1; O2SAT 89–99; BMI 53.1
--- NOTE | 2025-01-02 18:42 | EX.ED.DYSGE1 ---
HPI History of Present Illness Chief Complaint: Suicidal [facility] Medical History (Updated 01/02/25 @ 23:[address] Edward Nj, DO) Hormone deficiency Depression PCOS (polycystic ovarian syndrome) Home Medications ?Medication ?Instructions ?Recorded ?Last Taken ?Type dextroamphetamine-amphetamine ER 30 mg PO DAILY 11/21/19 Unknown History 30 mg 24hr capsule,extend release topiramate 50 mg tablet 50 mg PO BID 01/02/25 Unknown History venlafaxine 150 mg 150 mg PO QHS 01/02/25 Unknown History capsule,extended release 24 hr Allergy/AdvReac Type Severity Reaction Status Date / Time buspirone (From BuSpar) Allergy Nausea Verified 08/22/21 17:13 Family History Mother Cancer cervical Aunt Cancer cervical Grandmother Cancer cervical Other Diabetes Heart disease Surgical History History of cholecystectomy Social History Smoking Status: Current every day smoker tobacco type: cigarettes alcohol intake: never substance use type: does not use caffeine: Yes what type of physical activity do you participate in: walking and bicycling frequency: 3-4 times per week seatbelt use: always do you feel safe at home: Yes 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 EXAM Physical Exam Const Vital Signs: 01/02/25 18:42 01/02/25 19:08 01/02/25 19:30 Temperature 97.7 F L Temperature Source Axillary Pulse Rate 64 54 L 58 L Respiratory Rate 17 16 18 Respiratory Effort Respiratory Pattern Blood Pressure 150/88 H 138/72 H 104/69 Blood Pressure Mean 108 94 80 Blood Pressure Source Blood Pressure Position Blood Pressure Location Pulse Ox 97 96 94 Oxygen Delivery Method Room Air Room Air Room Air Oxygen Flow Rate (L/min) Fraction of Inspired Oxygen (FIO2) 01/02/25 20:00 01/02/25 20:30 01/02/25 21:00 Temperature Temperature Source Pulse Rate 59 L 60 59 L Respiratory Rate 16 18 18 Respiratory Effort Respiratory Pattern Blood Pressure 100/62 111/97 H 100/59 L Blood Pressure Mean 74 101 72 Blood Pressure Source Blood Pressure Position Blood Pressure Location Pulse Ox 94 94 93 Oxygen Delivery Method Room Air Room Air Room Air Oxygen Flow Rate (L/min) Fraction of Inspired Oxygen (FIO2) 01/02/25 21:30 01/02/25 21:45 01/02/25 22:00 Temperature Temperature Source Pulse Rate 66 58 L 70 Respiratory Rate 18 22 H 24 H Respiratory Effort Respiratory Pattern Blood Pressure 115/77 129/63 H 119/69 Blood Pressure Mean 89 85 85 Blood Pressure Source Blood Pressure Position Blood Pressure Location Pulse Ox 93 99 98 Oxygen Delivery Method Room Air Non-Rebreather Non-Rebreather Oxygen Flow Rate (L/min) 15 15 Fraction of Inspired Oxygen (FIO2) 01/02/25 22:15 01/02/25 22:22 01/02/25 22:22 Temperature Temperature Source Pulse Rate 68 57 L 83 Respiratory Rate 26 H 14 20 H Respiratory Effort Respiratory Pattern Blood Pressure 106/53 L 116/55 L 116/55 L Blood Pressure Mean 70 75 69 Blood Pressure Source Blood Pressure Position Blood Pressure Location Pulse Ox 90 89 Oxygen Delivery Method Non-Rebreather Non-Rebreather Oxygen Flow Rate (L/min) 5 5 Fraction of Inspired Oxygen (FIO2) 01/02/25 22:30 01/02/25 22:30 01/02/25 22:30 Temperature Temperature Source Pulse Rate 80 74 Respiratory Rate 14 22 H Respiratory Effort Mechanically Ventilated Respiratory Pattern Apneustic Blood Pressure 155/86 H Blood Pressure Mean 104 Blood Pressure Source Blood Pressure Position Blood Pressure Location Pulse Ox 96 99 99 Oxygen Delivery Method Mechanical Ventilator Mechanical Ventilator Oxygen Flow Rate (L/min) Fraction of Inspired Oxygen (FIO2) 50 01/02/25 22:45 01/02/25 22:55 01/02/25 23:00 Temperature 96.7 F L Temperature Source Core Pulse Rate 77 88 82 Respiratory Rate 14 16 16 Respiratory Effort Respiratory Pattern Blood Pressure 134/90 H 128/75 H 115/66 Blood Pressure Mean 104 90 81 Blood Pressure Source Blood Pressure Position Blood Pressure Location Pulse Ox 98 98 96 Oxygen Delivery Method Mechanical Ventilator Mechanical Ventilator Oxygen Flow Rate (L/min) Fraction of Inspired Oxygen (FIO2) 01/02/25 23:10 01/02/25 23:15 01/02/25 23:20 Temperature 96.8 F L Temperature Source Core Pulse Rate 79 74 73 Respiratory Rate 16 16 18 Respiratory Effort Respiratory Pattern Blood Pressure 105/64 94/54 L Blood Pressure Mean 77 67 Blood Pressure Source Blood Pressure Position Blood Pressure Location Pulse Ox 95 96 95 Oxygen Delivery Method Mechanical Ventilator Oxygen Flow Rate (L/min) Fraction of Inspired Oxygen (FIO2) 01/02/25 23:26 01/02/25 23:30 01/02/25 23:33 Temperature 98.7 F Temperature Source Axillary Pulse Rate 77 72 Respiratory Rate 18 18 Respiratory Effort Respiratory Pattern Blood Pressure 98/60 94/52 L 94/52 L Blood Pressure Mean 72 65 66 Blood Pressure Source Monitor Blood Pressure Position Semi-Fowlers Blood Pressure Location Left Arm Pulse Ox 95 96 Oxygen Delivery Method Oxygen Flow Rate (L/min) Fraction of Inspired Oxygen (FIO2) [facility] MDM Narrative Medical decision making narrative: HISTORY OF PRESENT ILLNESS: Chief complaint: Suicidal attempt 34-year-old female history of depression, PCOS presents with concern for suicide attempt by overdosing on medications. Apparently the patient took a whole cup of Xanax, Klonopin and Topamax. This Patient states there is approximately 50 pills in this cup. This occurred approximate 5:50 PM on 01/02/2025. She does not know the exact quantity of each. Patient notes increased dressers recently. States she is having take her multiple family members. Notes she is giving from an empty vessel. Notes several days ago she attempted to harm herself by cutting her neck. REVIEW OF SYSTEMS: Pertinent positives: Suicide attempt, suicidal ideation Pertinent negatives: CP, SOB, cough PHYSICAL EXAM: Nursing triage notes reviewed, Vital signs reviewed Constitutional: please see mdm HENT: MMM Eyes: Pupils equal round and reactive to light, Extraocular muscles intact Neck: No stridor, no JVD, full neck ROM Lungs: Clear to auscultation, No wheezing or rales. No increased work of breathing, no conversational dyspnea, no accessory muscle use, no nasal flaring. No respiratory distress noted Heart: Regular rate and rhythm, No murmurs, No rubs and No gallops, 2+ distal pulses (radial, femoral, posterior tibial) in all extremities Abdomen: Soft, there is no tenderness, rigidity, rebound or guarding, no obvious peritoneal signs, no palpable pulsatile abdominal masses, no auscultated abdominal bruit : No CVAT Extremities: No edema Neuro: No new focal neurological deficits, cranial nerves II through XII intact, 5/5 strength in all present extremities. Intact sensation to light touch in all present extremities, 2+ reflexes bilateral patella tendons. Skin: superficial kwasi Psych: depressed affect, intact thought process MEDICAL DECISION MAKING: Chief Complaint: please see HPI External records reviewed: Reviewed prior encounters. No psychiatric encounters noted in our chart. Reviewed PDMP. The patient's not prescribed any benzodiazepines. Of note the patient is prescribed 5 mg of topiramate twice daily Factors affecting care: As per HPI Social determinants of health: History of mental health disorder History obtained from others: , EMS Consults: Poison control - Klonopin 1-4 hours peak effect. Xanax 1-2 hour peak affect. Topamax 1-2 hour peak affect. Medically cleared after 12 hours. Confusion, slurred speech, ataxia. Recommend airway breathing support. Internal medicine MDM Narrative: The patient was initially hemodynamically stable, afebrile and nontoxic-appearing. I obtained a broad lab to further determine if the patient was suffering from a life-threatening etiology. Initially gave fluids and Zofran ALL IMAGES (IF OBTAINED) HAVE BEEN PERSONALLY REVIEWED AND INTERPRETED BY MYSELF. EKG with sinus bradycardia rate of 52, normal CA interval, no sign of diabetes or high degree block, normal axis, normal intervals, no STEMI, QRS 76, QTc 437 Tylenol, salicylate level negative CBC with no leukocytosis, noted hemoconcentration consistent with dehydration, no thrombocytopenia BMP without evidence of significant electrolyte abnormalities, no anion gap, no acute kidney injury. Urine test is negative Urine tox screen is positive for amphetamines, benzodiazepines and THC Serum alcohol negative At approximate 8:30 PM the patient began to escalate. She is using profanity, complaining about possible losing her house secondary to being pink slipped and being placed on a psychiatric hold. Patient began raising her voice using threatening language. At this time she was treated with IM Geodon. Patient continued to escalate and add approximately 9:30 PM patient continued to escalate so to control her agitation gave IV Haldol and Benadryl. I was called to the room at approximately 10:20 PM patient was noted to be hypoxic despite nonrebreather after Haldol and Benadryl. Given concern for ongoing overdose with multiple respiratory depressing medication and difficulty breathing and hypoxia decision was made to intubate the patient. Patient intubated on first attempt. Please see below procedure note. Postintubation x-ray was read reviewed personally by myself showed appropriate tube placement. Did show right-sided pneumonia. Radiologist agreed my interpretation Gave antibiotics (ceftriaxone, azithromycin) Discussed with hospitalist who agreed with ICU admission. Will admit to ICU for respiratory care and to undergo final medical clearance. The procedure was performed by myself. Indications: Hypoxia Procedure Description: Patient was preoxygenated with a nonrebreather, she was in supine position, I used video laryngoscopy to place a 7.5 ET tube using MAC 4 glide scope blade. I was able to achieve a grade 1 view of the vocal cords. Patient intubated on first attempt. Post-Procedure Assessment: Tracheal intubation was confirmed with breath sounds auscultated equally bilaterally; appropriate color change with end tidal CO2 detector and waveform capnography. The patient tolerated the procedure well with no immediate complications. The patient and/or family, caregivers express understanding. The patient and/or family, caregivers agrees with the plan. Shared decision making: I will have a discussion with the patient and or visitors regarding risk/benefits of further testing or admission. They will be made aware of of the risk/benefits inherent in this decision they will be given the opportunity to voice understanding. Total critical care time today provided was at least 60 minutes. This excludes separately billable procedures. Critical care time (if documented) is secondary to the patient having high probability of clinically significant/life threatening deterioration in the patient's condition which required my urgent intervention. Impression: 1. Suicide attempt 2. Intentional overdose 3. History of bipolar disorder Dispo: Admit inpatient [facility] facility. This note was generated with [email or web address] dictation software. It may contain incorrect words, spelling, and punctuation that were not noted in review of the chart prior to signing. Lab Data Labs: Laboratory Results - last 24 hr 01/02/25 01/02/25 01/02/25 18:45 18:54 19:07 WBC 8.3 RBC 5.40 Hgb 16.4 H Hct 48.8 H MCV 90.4 MCH 30.4 MCHC 33.6 RDW Std Deviation 39.5 RDW Coeff of Inderjit 11.9 Plt Count 236 MPV 10.1 Immature Gran % (Auto) 0.400 Neut % (Auto) 44.1 L Lymph % (Auto) 45.7 H [place] % (Auto) 7.1 Eos % (Auto) 2.2 Baso % (Auto) 0.5 Absolute Neuts (auto) 3.7 Absolute Lymphs (auto) 3.79 Nucleated RBC % 0 Sodium 138 Potassium 3.8 Chloride 104 Carbon Dioxide 23.0 Anion Gap 11 BUN 10 Creatinine 0.82 Estim Creat Clear Calc 153.12 Est GFR (MDRD) Non-Af 98 BUN/Creatinine Ratio 12.2 Glucose 78 Calcium 8.9 Total Creatine Kinase 110 Triglycerides 192 Serum , Qual NEGATIVE Salicylates < 0.5 L Urine Opiates Screen NEGATIVE U Buprenorphine Qual PRESUMPTIVE POSITIVE Ur Oxycodone Screen NEGATIVE Urine Methadone Screen NEGATIVE Urine Fentanyl Screen NEGATIVE Acetaminophen < 5.0 L Ur Barbiturates Screen NEGATIVE Ur Phencyclidine Scrn NEGATIVE Ur Amphetamines Screen PRESUMPTIVE POSITIVE U Benzodiazepines Scrn PRESUMPTIVE POSITIVE Urine Cocaine Screen NEGATIVE U Cannabinoids Screen PRESUMPTIVE POSITIVE Ethyl Alcohol < 10.1 POC Glucose 88 ABG Data ABG results: ABG 01/02/25 23:07 Specimen Type ART Sample Site R Radial pH 7.32 L Bicarbonate Actual 25.9 Total CO2 28 Base Excess 0 O2 Saturation 93 L O2 % 50.0 ABG pCO2 50.1 H ABG pO2 71 L Dru Test Positive Respiration Rate 16 O2 Delivery Device ET Tube Vent Mode AC Tidal Volume 400.0 POC PEEP 8 Radiography Diagnostic Testing: Clinical Impression(s) from Imaging Studies Chest X-Ray 01/02/25 22:50 IMPRESSION: Successful tube placement. Right mid lung airspace disease possibly pneumonia. Reading Location: [place] [id number] Discharge Plan Triage Chief Complaint: Suicidal ED Provider: Julio Duff Dx/Rx/DC Orders Primary Care Provider: Luis Fernando Vásquez
--- NOTE | 2025-01-02 19:05 | EKG12_ITS ---
Test Reason : SUICIDAL Blood Pressure : */* mmHG Vent. Rate : 52 BPM Atrial Rate : 52 BPM P-R Int : 172 ms QRS Dur : 76 ms QT Int : 470 ms P-R-T Axes : 41 17 44 degrees QTcB Int : 437 ms Sinus bradycardia Otherwise normal ECG Confirmed by JAYESH STEWART, JACKELINE ([id number]), dictionary editor SHERYL FABIAN ([id number]) on 01/04/2025 9:03:29 AM Referred By: MANJINDER Confirmed By: JACKELINE MCCONNELL MD
[2025-01-02] MEDS: 0.9% Normal Saline (1000mL) 1,000 ML 999 ML IV ×2 (19:16→23:34)
[2025-01-02 19:48] LABS: Hematocrit 48.8 % (37-47); Hemoglobin 16.4 g/dL (12.0-15.0); Immature Granulocytes Count 0.030 X10^3/uL (0.0-0.0); Mean Corp Hgb Conc 33.6 g/dL (32-36); Mean Corpuscular Volume 90.4 fL (81-99); Mean Platelet Vol. 10.1 fl (6.2-12.0); NRBC Flagged by Analyzer 0 % (0-5); Platelet Count 236 K/mm3 (150-450); RBC Distribution Width CV 11.9 % (11.6-14.6); RBC Distribution Width SD 39.5 fl (35.1-43.9); Red Blood Count 5.40 M/mm3 (4.2-5.4); White Blood Count 8.3 K/mm3 (4.4-11.0)
[2025-01-02 20:06] LABS: Barbiturate Urine NEGATIVE (< 200 ng/mL); Benzodiazepine Urine PRESUMPTIVE POSITIVE (< 200 ng/mL); PCP Urine NEGATIVE (< 25 ng/mL); THC Urine PRESUMPTIVE POSITIVE (< 50 ng/mL)
[2025-01-02 20:07] LABS: Alcohol, Blood (Medical)-Serum < 10.1 mg/dL (<=10.0); Anion Gap 11 (5-15); BUN 10 mg/dL (4-19); BUN/Creat Ratio 12.2 RATIO (10-20); Calcium,Total 8.9 mg/dL (7.6-11.0); Carbon Dioxide 23.0 mmol/L (21.0-32.0); Chloride 104 mmol/L (98-108); Estimated Creatinine Clearance 153.12 ml/min (50-250); Glucose 78 mg/dL (70-99); Potassium 3.8 mmol/L (3.3-5.1)
[2025-01-02 20:09] LABS: Internal QC Validated? YES +Cl - CLEAR BKGD; Pregnancy, Serum, hCG Quali. NEGATIVE Negative; Record Kit Lot#, Serum Preg. 962302
[2025-01-02 20:34] LABS: Acetaminophen (Tylenol) Level < 5.0 ug/mL (8.0-19.0); Salicylate < 0.5 mg/dL (2.8-20.0)
[2025-01-02] MEDS: Ziprasidone IM 20 MG/ML VIAL IM (20:46)
--- NOTE | 2025-01-02 20:51 | ED.RN ---
Pt voicing frustration, states she is going to lose her shit if she cannot go smoke. This nurse attempted to de-escalate, unsuccessful. Pt repeatedly states I am going to lose my house and my job, I should have just laid there and and not called for help. Informed pt of policies and processes, informed that she is not permitted to go smoke. Informed that crisis would be called at midnight. Pt continues to state the same, this nurse offered nicotine patch and pt declines. Dr Duff and security informed of same, Dr Duff in to talk to pt. Sitter informs this nurse that after this nurse spoke to her she began showing more signs of agitation by picking at her tegaderm for her IV and removing monitoring equipment. [facility], this nurse informed pt about medication and pt took IM injection without incident.
[2025-01-02] MEDS: DiphenhydrAMINE 50 MG/ML Syringe IV (21:41)
--- NOTE | 2025-01-02 21:43 | ED.RN ---
Patient SpO2 saturating dropped to 77% on room air. O2 applied at 3L via NC, patient's SpO2 increased to 95%. She began to sleep and O2 dropped to 78% on the 3L. Non rebreather mask applied at 15L. SpO2 now at 100%. Dr. Omega doty.
--- NOTE | 2025-01-02 22:25 | ED.RN ---
2220: PT. MOVED TO TRAUMA ROOM 2 DUE TO POOR OXYGENATION
--- NOTE | 2025-01-02 22:43 | ED.RN ---
2119- Patient was becoming increasing agitated. Geodon not effective. Dr. Duff made aware, orders placed.
[2025-01-02] MEDS: Propofol 10MG/Ml 1,000 MG/100 ML Bottle 9.2 MG CONT INF (22:45)
--- NOTE | 2025-01-02 22:47 | ED.RN ---
2339- Patient found that SpO2 was fluctuating on O2 mask between 87%-96%. Dr. Duff made aware and in patient's room. Patient repositioned. Periods of sleep apnea observed. During the periods of apnea SpO2 would drop below 90%. Dr. Duff discussed options with nursing staff and spouse. Patient moved to Trauma room 2 for intubation.
--- NOTE | 2025-01-02 22:50 | RAD_ITS ---
PROCEDURE: CHEST 1 VIEW (PORTABLE) 01/02/2025 REASON FOR EXAM: TUBE PLACEMENT TECHNIQUE: Frontal view of the chest. COMPARISON: No FINDINGS: Moderate scoliosis. ETT tip at thoracic inlet. Enteric tube tip in stomach lumen. Normal heart size. Under aerated lungs. Right mid lung opacity, possibly consolidation. No effusion or pneumothorax. RAD/Chest 1 View (Portable) IMPRESSION: Successful tube placement. Right mid lung airspace disease possibly pneumonia. Reading Location: [facility]
[2025-01-02] MEDS: fentaNYL drip 100 ML 5 MCG CONT INF (23:01)
[2025-01-02 23:13] LABS: Allen Test Positive; Base Excess 0 mmol/L (-2 to +2); FI02 50.0; PEEP 8; PO2 71 mmHG (75-100); RR 16; SITE R Radial; SO2 93 % (95-99)
--- NOTE | 2025-01-02 23:41 | HP.PCM.HOS_ITS ---
[facility] - General General Date of Admission: 01/02/25 Date of Service: 01/02/25 Chief Complaint: Suicide Attempt with Intentional Overdose. HPI Narrative CHLOE DIAZ, is a 34 F with a past medical history of super-morbid (class III) obesity; with BMI of 53.1 this admission, PCOS; with secondary amenorrhea, tobacco abuse, history of thyromegaly, likely ADHD; on dextroamphetamine- amphetamine, depression; on venlafaxine and sertraline, history of chest wall abscess (2022), history of cholecystectomy and recent suicide attempt with patient cutting her throat horizontally multiple times a few days ago who presents to [facility] ER complaining of suicide attempt with intentional overdose. Mrs. Hutchinson is currently intubated and sedated so information was gathered from chart, medical staff, computer and the patient's at the bedside. According to the records she deliberately took a whole cup of ~50 pills consisting of an unknown combination of Xanax, Klonopin and Topamax with the intention to end her life at ~5:00 PM. She was not sure of the exact proportion of each medication she took. The patient admitted to the ER physician that her depression has been worse recently due to her attempting to take care of multiple family members and exhausting herself in the process. The ER physician stated that the patient was irate and becoming verbally abusive and wanting to leave the ER so she was medicated with ziprasidone x 2 plus haloperidol with subsequent hypersomnolence and depressed respiratory drive likely due to severe EVANGELINA with patient noted to have long episodes of apnea with the patient subsequently requiring intubation in the ER. Her UDS returned positive for amphetamines, benzodiazepines and cannabinoids (with undetectable salicylate and acetaminophen levels) and she underwent a CXR that revealed Right midlung airspace disease possibly due to Pneumonia suspected to be secondary to aspiration. I spoke with her at the bedside in the ER and he explained that she does not want to go to [facility] because she has heard negative things about this facility from her friends. She was then admitted to the ICU for ongoing care for a stay that is expected to extend beyond 2 midnights. [facility] Medical History Hormone deficiency Depression PCOS (polycystic ovarian syndrome) Home Medications ?Medication ?Instructions ?Recorded ?Last Taken ?Type dextroamphetamine-amphetamine ER 30 mg PO DAILY Unknown History 30 mg 24hr capsule,extend release topiramate 50 mg tablet 50 mg PO BID 01/02/25 Unknow n History venlafaxine 150 mg 150 mg PO QHS 01/02/25 Unkno wn History capsule,extended release 24 hr Allergy/AdvReac Type Severity Reaction Status Date / Time buspirone (From BuSpar) Allergy Nausea Verified 08/22/21 17:13 Family History Mother Cancer cervical Aunt Cancer cervical Grandmother Cancer cervical Other Diabetes Heart disease Surgical History History of cholecystectomy Social History Smoking Status: Current every day smoker tobacco type: cigarettes alcohol intake: never substance use type: does not use caffeine: Yes what type of physical activity do you participate in: walking and bicycling frequency: 3-4 times per week seatbelt use: always do you feel safe at home: Yes 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 Vital Signs Vital Signs Vital Signs: 01/02/25 18:42 01/02/25 19:08 01/02/25 19:30 Temperature 97.7 F L Temperature Source Axillary Pulse Rate 64 54 L 58 L Respiratory Rate 17 16 18 Respiratory Effort Respiratory Pattern Blood Pressure 150/88 H 138/72 H 104/69 Blood Pressure Mean 108 94 80 Blood Pressure Source Blood Pressure Position Blood Pressure Location Pulse Ox 97 96 94 Oxygen Delivery Method Room Air Room Air Room Air Oxygen Flow Rate (L/min) Fraction of Inspired Oxygen (FIO2) 01/02/25 20:00 01/02/25 20:30 01/02/25 21:00 Temperature Temperature Source Pulse Rate 59 L 60 59 L Respiratory Rate 16 18 18 Respiratory Effort Respiratory Pattern Blood Pressure 100/62 111/97 H 100/59 L Blood Pressure Mean 74 101 72 Blood Pressure Source Blood Pressure Position Blood Pressure Location Pulse Ox 94 94 93 Oxygen Delivery Method Room Air Room Air Room Air Oxygen Flow Rate (L/min) Fraction of Inspired Oxygen (FIO2) 01/02/25 21:30 01/02/25 21:45 01/02/25 22:00 Temperature Temperature Source Pulse Rate 66 58 L 70 Respiratory Rate 18 22 H 24 H Respiratory Effort Respiratory Pattern Blood Pressure 115/77 129/63 H 119/69 Blood Pressure Mean 89 85 85 Blood Pressure Source Blood Pressure Position Blood Pressure Location Pulse Ox 93 99 98 Oxygen Delivery Method Room Air Non-Rebreather Non-Rebreather Oxygen Flow Rate (L/min) 15 15 Fraction of Inspired Oxygen (FIO2) 01/02/25 22:15 01/02/25 22:22 01/02/25 22:22 Temperature Temperature Source Pulse Rate 68 57 L 83 Respiratory Rate 26 H 14 20 H Respiratory Effort Respiratory Pattern Blood Pressure 106/53 L 116/55 L 116/55 L Blood Pressure Mean 70 75 69 Blood Pressure Source Blood Pressure Position Blood Pressure Location Pulse Ox 90 89 Oxygen Delivery Method Non-Rebreather Non-Rebreather Oxygen Flow Rate (L/min) 5 5 Fraction of Inspired Oxygen (FIO2) 01/02/25 22:30 01/02/25 22:30 01/02/25 22:30 Temperature Temperature Source Pulse Rate 80 74 Respiratory Rate 14 22 H Respiratory Effort Mechanically Ventilated Respiratory Pattern Apneustic Blood Pressure 155/86 H Blood Pressure Mean 104 Blood Pressure Source Blood Pressure Position Blood Pressure Location Pulse Ox 96 99 99 Oxygen Delivery Method Mechanical Ventilator Mechanical Ventilator Oxygen Flow Rate (L/min) Fraction of Inspired Oxygen (FIO2) 50 01/02/25 22:45 01/02/25 22:55 01/02/25 23:00 Temperature 96.7 F L Temperature Source Core Pulse Rate 77 88 82 Respiratory Rate 14 16 16 Respiratory Effort Respiratory Pattern Blood Pressure 134/90 H 128/75 H 115/66 Blood Pressure Mean 104 90 81 Blood Pressure Source Blood Pressure Position Blood Pressure Location Pulse Ox 98 98 96 Oxygen Delivery Method Mechanical Ventilator Mechanical Ventilator Oxygen Flow Rate (L/min) Fraction of Inspired Oxygen (FIO2) 01/02/25 23:10 01/02/25 23:15 01/02/25 23:20 Temperature 96.8 F L Temperature Source Core Pulse Rate 79 74 73 Respiratory Rate 16 16 18 Respiratory Effort Respiratory Pattern Blood Pressure 105/64 94/54 L Blood Pressure Mean 77 67 Blood Pressure Source Blood Pressure Position Blood Pressure Location Pulse Ox 95 96 95 Oxygen Delivery Method Mechanical Ventilator Oxygen Flow Rate (L/min) Fraction of Inspired Oxygen (FIO2) 01/02/25 23:26 01/02/25 23:30 01/02/25 23:33 Temperature 98.7 F Temperature Source Axillary Pulse Rate 77 72 Respiratory Rate 18 18 Respiratory Effort Respiratory Pattern Blood Pressure 98/60 94/52 L 94/52 L Blood Pressure Mean 72 65 66 Blood Pressure Source Monitor Blood Pressure Position Semi-Fowlers Blood Pressure Location Left Arm Pulse Ox 95 96 Oxygen Delivery Method Oxygen Flow Rate (L/min) Fraction of Inspired Oxygen (FIO2) Weight Weight: 339 lb 1.135 oz Body Mass Index (BMI) 53.1 Physical Exam Const Constitutional Narrative: Patient is intubated and sedated on mechanical ventilator. HEENT normocephalic and head/scalp atraumatic HEENT Narrative: Patient has multiple superficial horizontal lacerations across her anterior neck with no signs of infection at this time. Eyes PERRL Neck no lymphadenopathy, supple and no JVD Resp Resp Narrative: Decreased breath sounds over Right middle lobe. Cardio regular rate and regular rhythm GI normal to inspection, nondistended, normoactive bowel sounds, soft to palpation, non-tender and non-distended GI Narrative: Morbidly obese. Extremity normal to inspection, full ROM and no clubbing, cyanosis or edema Skin Skin Narrative: Patient has no evidence of rash, abscess, wounds or jaundice. Neuro Neuro Narrative: Patient is intubated and sedated on mechanical ventilation. Results Medical Records Data Attestation: I reviewed the patient's medical records Lab / Micro Data Attestation: I reviewed the patient's lab results. 01/02/25 18:54 01/02/25 18:54 Labs: Laboratory Results - last 24 hr 01/02/25 18:45: POC Glucose 88 01/02/25 18:54: WBC 8.3, RBC 5.40, Hgb 16.4 H, Hct 48.8 H, MCV 90.4, MCH 30.4, MCHC 33.6, RDW Std Deviation 39.5, RDW Coeff of Inderjit 11.9, Plt Count 236, MPV 10.1, Immature Gran % (Auto) 0.400, Neut % (Auto) 44.1 L, Lymph % (Auto) 45.7 H, [place] % (Auto) 7.1, Eos % (Auto) 2.2, Baso % (Auto) 0.5, Absolute Neuts (auto) 3.7, Absolute Lymphs (auto) 3.79, Nucleated RBC % 0, Sodium 138, Potassium 3.8, Chloride 104, Carbon Dioxide 23.0, Anion Gap 11, BUN 10, Creatinine 0.82, Estim Creat Clear Calc 153.12, Est GFR (MDRD) Non-Af 98, BUN/Creatinine Ratio 12.2, Glucose 78, Calcium 8.9, Serum , Qual NEGATIVE, Salicylates < 0.5 L, A cetaminophen < 5.0 L, Ethyl Alcohol < 10.1 01/02/25 19:07: Urine Opiates Screen NEGATIVE, U Buprenorphine Qual PRESUMPTIVE POSITIVE, Ur Oxycodone Screen NEGATIVE, Urine Methadone Screen NEGATIVE, Urine Fentanyl Screen NEGATIVE, Ur Barbiturates Screen NEGATIVE, Ur Phencyclidine Scrn NEGATIVE, Ur Amphetamines Screen PRESUMPTIVE POSITIVE, U Benzodiazepines Scrn PRESUMPTIVE POSITIVE, Urine Cocaine Screen NEGATIVE, U Cannabinoids Screen PRESUMPTIVE POSITIVE ABG Data ABG results: ABG 01/02/25 23:07 Specimen Type ART Sample Site R Radial pH 7.32 L Bicarbonate Actual 25.9 Total CO2 28 Base Excess 0 O2 Saturation 93 L O2 % 50.0 ABG pCO2 50.1 H ABG pO2 71 L Dru Test Positive Respiration Rate 16 O2 Delivery Device ET Tube Vent Mode AC Tidal Volume 400.0 POC PEEP 8 Imaging Radiology Impression Chest X-Ray 01/02/25 22:50 IMPRESSION: Successful tube placement. Right mid lung airspace disease possibly pneumonia. Reading Location: [place] [id number] Assessment & Plan Assessment/Plan (1) Intentional overdose: QUALIFIERS: Encounter type: initial encounter Qualified Code(s): T50.902A - Poisoning by unspecified drugs, medicaments and biological substances, intentional self-harm, initial encounter (2) Suicide attempt: (3) Uncontrolled depression: (4) Morbid obesity with BMI of 50.0-59.9, adult: (5) PCOS (polycystic ovarian syndrome): (6) Tobacco abuse: PLAN: Plan 1. Suicide Attempt with Intentional Overdose - Admit to ICU. Keep on ventilator overnight to allow all medications to wash out of her system. We will consult case management see this patient on rounds in the a.m. for further recommendations regarding inpatient psychiatric care once she has completed her course of medical treatment. Recheck ABG in AM. Finally, we will consult pulmonary-critical care physician see this patient on rounds in the a.m. further recommendations regarding ventilator management and weaning with help appreciated in advance. 2. Uncontrolled Depression with suicidal ideation and recent suicide attempt with the patient cutting her throat horizontally multiple times precipitating #1 - Noted. 3. CXR that revealed Right midlung airspace disease possibly due to Pneumonia suspected to be secondary to Aspiration complicating #1 & #2 - Start treatment with IV piperacillin-tazobactam and await culture and sensitivity data. Check urinary antigens for Streptococcus pneumonia and Legionella. Give acetaminophen TN as needed for pain or fever. Recheck CXR in a.m. to follow trend. 4. Super-morbid (class III) obesity; with BMI of 53.1 this admission with clinical evidence of Severe EVANGELINA adding to the burden of disease outlined from #1 - #3 - Weight loss will be recommended once patient's sensorium clears. Check TSH. Start CPAP when patient is weaned from ventilator. 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 5. PCOS; with secondary amenorrhea attributable to #4 - Noted. 6. Tobacco Abuse adding to the medical complexity of #1 - #5 - Tobacco cessation will be strongly encouraged when patient is weaned from ventilator and sensorium clears. Nicotine patch was placed to prevent withdrawal. 7. History of thyromegaly - Noted. Check TSH. 8. Likely ADHD; on dextroamphetamine-amphetamine - Hold this agent until further notice. 9. History of chest wall abscess (2022) - Noted with no evidence of recurrence at this time. 10. History of cholecystectomy - Noted for the sake of completeness. 11. DVT/GI prophylaxis - Enoxaparin 40 mg sq BID plus SCD's. Pantoprazole 40 mg IV daily. Total time: Approximately (but not less than) 75 minutes. Charges/Coding Visit Charges Inpatient E&M: 73505 Init Hosp L3
[2025-01-02 23:53] LABS: CPK Total, Creatine Kinase 110 U/L (24-195); Triglycerides 192 mg/dL
--- OUTSIDE RECORDS SUMMARY | 2025-01-02 23:58 | XMS RPT_ITS | CCD ---
Author Organization [facility] Care Team Providers Care Dust Collector Ore Crushing Name Role Phone KATY GALLOWAY Admitting Unavailable NASIMA NICOLE (RES) Attending Ene Alvarez Primary Care Unavailable KATY GALLOWAY Admitting Unavailable NASIMA NICOLE Attending Unavailable Ene Phillips MD Primary Care Provider [phone] Markell Jacques Unavailable Ene Phillips Primary Care Unavailable Ene Phillips MD Primary Care Provider [phone] Ene Phillips MD Primary Care Provider Unavailable Primary Care Provider ENE Alvarez Primary Care Unavailable Allergies Allergy Classification Reported Allergen(s) Allergy Type Date of Onset Reaction(s) Facility (9 sources) busPIRone; Translations: [BUSPIRONE HCL] Drug Allergy 5 Other: See Comments [facility] Other [facility] (1 source) busPIRone Drug Allergy 2 Nausea [facility] (1 source) busPIRone Drug Allergy 2 [facility] Medications Current Medications Medication Drug Class(es) Dates Sig (Normalized) Sig (Original) acetaminophen 325 mg / HYDROcodone bitartrate 5 mg oral tablet (1 source) Opioid Agonist Start: 08-22-2021 take 1 tablet by mouth every six hours Hydrocodone-Aceta minophen Active 1 TABLET PO EVERY 6 HOURS 10 3 August 22, 2021 amoxicillin 875 mg oral tablet (1 source) Penicillin-class Antibacterial Start: 09-12-2024 End: 09-17-2024 take 1 tablet by mouth twice daily amoxicillin (AMOXIL) 875 mg tablet Indications: Toothache Take 1 tablet by mouth two times a day for 5 days. 10 tablet 09/12/2024 09/17/2024 Active amoxicillin 875 mg / clavulanate 125 mg oral tablet (2 sources) Penicillin-class Antibacterial Start: 03-29-2024 End: 04-05-2024 take 1 tablet by mouth twice daily amoxicillin-clavu lanate potassium (AUGMENTIN) 875-125 mg per tablet Indications: Bacterial sinusitis Take 1 tablet by mouth two times a day for 7 days. 14 tablet 03/29/2024 04/05/2024 Active Start: 08-22-2021 take 1 tablet by yesika twice daily Amoxicillin-Pot Clavulanate Active 1 TABLET PO TWICE A DAY August 22, 2021 1:00am 24 hr amphetamine aspartate 7.5 mg / amphetamine sulfate 7.5 mg / dextroamphetamine saccharate 7.5 mg / dextroamphetamine sulfate 7.5 mg extended release oral capsule (10 sources) Central Nervous System Stimulant Start: 08-06-2024 take 1 capsule by mouth once daily in the morning amphetamine-dextroamphetamine XR (ADDERALL XR) 30 mg capsule TAKE ONE CAPSULE BY MOUTH EVERY MORNING upon awakening 08/06/2024 Active Start: 11-21-2019 take 30 mg by mouth once daily Dextroamphetamine-Amphetamine Active 30 MG PO DAILY November 21, 2019 12:00am Start: 11-05-2019 End: 03-29-2024 amphetamine-dextroamphetamin e XR (ADDERALL XR) 30 mg 24 hr capsule 11/05/2019 03/29/2024 Discontinued (Course of therapy completed) Start: 08-07-2017 End: 10-23-2019 take 30 mg by mouth once daily Dextroamphetamine-Amphetamine Discontinu ed 30 MG PO DAILY October 31, 2017 October 23, 2019 9:59am dexamethasone 0.75 mg oral tablet (1 source) Corticosteroid Start: 08-22-2021 take 2.25 mg by mouth once daily Dexamethasone Active 2.25 MG PO DAILY August 22, 2021 1:00am 2 DAYS LEFT ibuprofen 600 mg oral tablet (1 source) Nonsteroidal Anti-inflammatory Drug Start: 08-22-2021 take 600 mg by mouth every six hours as needed Ibuprofen Active 600 MG PO EVERY 6 HOURS NEEDED August 22, 2021 1:00am sertraline 100 mg oral tablet (6 sources) Serotonin Reuptake Inhibitor Start: 09-04-2019 take 150 mg by mouth once daily Sertraline Active 150 MG PO DAILY September 04, 2019 8:30am Start: 08-07-2017 End: 09-04-2019 take 100 mg by mouth once daily Sertraline Discontinue d 100 MG PO DAILY August 07, 2017 1:00am September 04, 2019 8:30am End: 03-29-2024 take 1 tablet by mouth once daily sertraline (ZOLOFT) 50 mg tablet Take 50 mg by mouth once daily. 03/29/2024 Discontinued (Course of therapy completed) Comment on above: Take 50 mg by mouth once daily. topiramate 50 mg oral tablet (8 sources) Start: 03-19-2024 take 1 tablet by mouth every twelve hours topiramate (TOPAMAX) 50 mg tablet Take 1 tablet by mouth every 12 hours. 03/19/2024 Active Start: 06-06-2019 End: 03-29-2024 take 25 mg by mouth twice daily Topiramate Active 25 M G PO TWICE A DAY June 06, 2019 1:00am Comment on above: Take 25 mg by mouth twice daily. 24 hr venlafaxine 150 mg extended release oral capsule (4 sources) Serotonin and Norepinephrine Reuptake Inhibitor Start: 02-02-20 take 1 capsule by mouth once daily at mealtime venlafaxine ER (EFFEXOR XR) 150 mg 24 hr capsule Take 1 Capsule By Oral Route 1 time per day with food 02/01/2023 Active Comment on above: Take 1 Capsule By Or al Route 1 time per day with food Completed/Discontinued Medications Medication Drug Class(es) Dates Sig (Normalized) Sig (Original) benzonatate 100 mg oral capsule (3 sources) Non-narcotic Antitussive Start: 03-29-2024 End: 09-12-2024 take 1 capsule by mouth three times daily as needed for cough benzonatate (TESSALON PERLES) 100 mg capsule Indications: Acute cough Take 1 capsule by mouth three times a day as needed for cough. 40 capsule 03/29/2024 09/12/2024 Discontinued bisacodyl 5 mg delayed release oral tablet (4 sources) Stimulant Laxative Start: 12-24-2020 End: 03-29-2024 Bisacodyl (DULCOLAX) 5 mg tab Indications: Diarrhea, unspecified type Use as directed for Miralax / Gatorade Bowel Prep Kit 4 tablet 12/24/2020 03/29/2024 Discontinued (Course of therapy completed) Comment on above: Use as directed for Miralax / Gatorade Bowel Prep Kit fluticasone propionate 0.05 mg/actuat metered dose nasal spray (3 sources) Corticosteroid Start: 03-29-2024 End: 09-12-2024 take 2 spray(s) by mouth twice daily fluticasone (FLONASE) 50 mcg/actuation nasal spray Indications: Bacterial sinusitis Use 2 Sprays in each nostril two times a day. Rinse mouth after use. 1 Each 2 03/29/2024 09/12/2024 Discontinued Gatorade Sports Drink (4 sources) Start: 12-24-2020 End: 03-29-2024 Gatorade Sports Drink Indications: Diarrhea, unspecified type Use as directed for Miralax / Gatorade Bowel Prep Kit 64 oz 12/24/2020 03/29/2024 Discontinued (Course of therapy completed) Start: 12-24-2020 Gatorade Sport s Drink Indications: Diarrhea, unspecified type Use as directed for Miralax / Gatorade Bowel Prep Kit 64 oz 0 12/24/2020 Active Comment on above: Use as directed for Miralax / Gatorade Bowel Prep Kit hyoscyamine sulfate 0.125 mg sublingual tablet (5 sources) Start: End: take 1 tablet under the tongue four times daily as needed hyoscyamine sublingual (LEVSIN SL) 0.125 mg Indications: Abdominal pain, generalized , Diarrhea, unspecified type Dissolve 1 tablet under the tongue four times daily as needed (abdominal spasm). 30 tablet 2 12/15/2021 03/29/2024 Discontinued (Course of therapy completed) Comment on above: Dissolve 1 tablet un roberto the tongue four times daily as needed (abdominal spasm). lisdexamfetamine dimesylate 40 mg oral capsule (4 sources) Central Nervous System Stimulant Start: 023 End: VYVANSE 40 mg capsule 02/09/2023 09/12/2024 Discontinued nicotine 4 mg chewing gum (3 sources) Cholinergic Nicotinic Agonist Start: End: nicotine polacrilex (NICORETTE) 4 mg gum Indications: Encounter for smoking cessation counseling Take 1 Each by mouth as needed. 190 Each 2 03/29/2024 09/12/2024 Discontinued ondansetron 4 mg disintegrating oral tablet (6 sources) Serotonin-3 Receptor Antagonist Start: End: take 1 tablet by mouth every eight hours as needed for nausea and nausea ondansetron orally disintegrating (ZOFRAN ODT) 4 mg disintegrating tablet Indications: Nausea Take 1 tablet by mouth every 8 hours as needed. 12 tablet 2 12/15/2021 03/29/2024 Discontinued (Course of therapy completed) Comment on above: Take 1 tablet by yesika th every 8 hours as needed. polyethylene glycol 3350 30179 mg powder for oral solution (4 sources) Osmotic Laxative Start: End: polyethylene glycol 3350 (MIRALAX, GLYCOLAX) 17 gram/dose powder Indications: Diarrhea, unspecified type Use as directed for Miralax / Gatorade Bowel Prep Kit 238 g 12/24/2020 03/29/2024 Discontinued (Course of therapy completed) Comment on above: Use as directed for Miralax / Gatorade Bowel Prep Kit sodium chloride 0.111 meq/ml nasal spray (3 sources) Start: End: sodium chloride (SALINE MIST) 0.65 % nasal spray Indications: Bacterial sinusitis Use 1 [place] in the nose two times a day. 88 mL 2 03/29/2024 09/12/2024 Discontinued sulfamethoxazole 800 mg / trimethoprim 160 mg oral tablet (1 source) Dihydrofolate Reductase Inhibitor Antibacterial, Sulfonamide Antimicrobial Start: 019 End: 019 Sulfamethoxazole-Trim ethoprim Discontinued 1 EACH PO TWICE A DAY 08 04June 06, 2019 1:00am June 16, 2019 1:07am Problems Problem Classification Problem Date Documented Da te Episodic/Chronic Abdominal pain (2 sources) Generalized abdominal pain; Translations: [Generalized abdominal pain] Episodic Administrative/social admission (2 sources) Patient encounter status; Translations: [Persons encountering health services in other specified circumstances] 01-13-2023 Episodic Disorders of teeth and jaw (2 sources) Toothache; Translations: [Other specified disorders of teeth and supporting structures] 08-30-2021 Episodic Disorders usually diagnosed in infancy, childhood, or adolescence (6 sources) Attention deficit hyperactivity disorder, predominantly inattentive type; Translations: [Other specified behavioral and emotional disorders with onset usually occurring in childhood and adolescence] Onset: 10-25-2006 06-15-2021 Chronic Menstrual disorders (7 sources) Oligomenorrhea; Translations: [Oligomenorrhea, unspecified] Onset: 04-14-2012 06-06-2015 Chronic Mood disorders (7 sources) Unspecified mood [affective] disorder; Translations: [Bipolar II disorder] Onset: 09-05-2018 09-08-2018 Chronic Nausea and vomiting (2 sources) Nausea; Translations: [Nausea] Episodic Other circulatory disease (1 source) Elevated blood-pressure reading without diagnosis of hypertension; Translations: [Elevated blood-pressure reading, without diagnosis of hypertension] 03-29-2024 Episodic Other endocrine disorders (6 sources) Polycystic ovary syndrome; Translations: [Polycystic ovarian syndrome] Onset: 08-09-2013 06-06-2015 Chronic Other endocrine disorders (1 source) Polycystic ovary; Translations: [Polycystic ovarian syndrome] 09-04-2017 Chronic Other gastrointestinal disorders (1 source) Diarrhea; Translations: [Diarrhea, unspecified] Episodic Other lower respiratory disease (1 source) Cough; Translations: [Acute cough] 03-29-2024 Episodic Other nutritional; endocrine; and metabolic disorders (7 sources) Body mass index 40+ - severely obese; Translations: [Morbid (severe) obesity due to excess calories] Onset: 10-25-2006 10-19-2017 Chronic Other upper respiratory infections (1 source) Bacterial sinusitis; Translations: [Chronic sinusitis, unspecified] 03-29-2024 Chronic Other upper respiratory infections (2 sources) Upper respiratory infection; Translations: [Acute upper respiratory infection, unspecified] 03-09-2017 Episodic Skin and subcutaneous tissue infections (3 sources) Abscess of chest wall; Translations: [Cutaneous abscess of chest wall] Onset: 01-16-2023 01-13-2023 Episodic Substance-related disorders (6 sources) Cannabis dependence; Translations: [Cannabis dependence, uncomplicated] Onset: 09-08-2018 09-08-2018 Chronic Suicide and intentional self-inflicted injury (3 sources) Suicidal ideations; Translations: [Suicidal ideations] Onset: 09-05-2018 Episodic Thyroid disorders (1 source) Goiter; Translations: [Iodine-deficiency related diffuse (endemic) goiter] 09-01-2017 Chronic Results Test Name Value Interpretation Reference Range Facility [facility] 09-12-2024 CNOV Office Visit ([facility] ) JENNIFER BERRY ([id number]) 1990 F Date Time Provider Department 09/12/24 3:30 PM LÁZARO DICKEY [facility] During your visit today, we recorded the following information about you: Temperature Pulse Respiration Blood pressure 98.1 degrees 64/minute 20/minute 195/102 Weight 159.1 kg Lázaro Dickey MD 09/12/2024 4:05 PM Signed [facility] Subjective Jennifermichael Berry is a 33 year old female. Patient presents with: Dental Problem: L lower tooth infection x2 days Patient has had years of dental pain secondary to a cracked left lower molar. She has a significant improvement in pain the last 2 days. She feels her jaw is swollen and pain radiates into her left ear. Pain is intense enough to induce vomiting. She has been taking Tylenol and using saline rinse for treatment. Denies any fever or drainage. Dental Problem Review of Systems Objective BP 195/102 Pulse 64 Temp 36.7 ?C (98.1 ?F) Resp 20 Wt (!) 159.1 kg (350 lb 12 oz) LMP 01/13/2021 SpO2 98% BMI 56.61 kg/m? Physical Exam Constitutional: General: She is in acute distress (somewhat uncomfortable). HENT: Right Ear: Tympanic membrane and ear canal normal. Left Ear: Tympanic membrane and ear canal normal. Nose: No congestion. Right Sinus: No maxillary sinus tenderness or frontal sinus tenderness. Left Sinus: No maxillary sinus tenderness or frontal sinus tenderness. Mouth/Throat: Mouth: Mucous membranes are moist. Pharynx: No oropharyngeal exudate or posterior oropharyngeal erythema. Comments: Left lower posterior/second molar has missing enamel at the outer gumline. No obvious erythema or edema. Tooth is nontender to palpation. Tender swelling along the mandible inferior to the painful cracked tooth. Eyes: Extraocular Movements: Extraocular movements intact. Conjunctiva/sclera: Conjunctivae normal. Pupils: Pupils are equal, round, and reactive to light. Cardiovascular: Rate and Rhythm: Normal rate and regular rhythm. Heart sounds: No murmur heard. Pulmonary: Effort: No respiratory distress. Breath sounds: No wheezing, rhonchi or rales. Musculoskeletal: Cervical back: Neck supple. Lymphadenopathy: Cervical: No cervical adenopathy. Neurological: Mental Status: She is alert. {ASSESSMENT/PLAN: 1. Toothache - ICD9: 525.9, ICD10: K08.89 Pulpitis with or without dental infection of cracked left lower molar. The acute worsening associated with jaw swelling suggests infection. - AMOXICILLIN 875 MG TABLET Discussed taking Tylenol in conjunction with ibuprofen for up to 1 week. Advised against ongoing use to reduce the risk of gastritis. Follow-up with dentist recommended; she does not have dental insurance and cannot afford it. Lázaro Dickey MD Differential Diagnoses - dental infection is more likely for the following reason(s): edema Contributing Factors Social Determinants of Health significantly affecting care: financial resource strain Disposition The patient was discharged. Procedures Allergies As of Date: 09/12/2024 Noted Allergy Reaction BUSPAR (BUSPIRONE HCL) 06/06/2015 14 - Other: See Comments Comments: Dizziness Date Reviewed: 09/12/2024 Reviewed by: Kamille Armstrong MA - Fully Assessed Reason for Visit: Dental Problem [31] Cmt: L lower tooth infection x2 days Primary Visit Diagnosis:Toothache [K08.89] Order(s):amoxicillin (AMOXIL) 875 mg tabletTake 1 tablet by mouth two times a day for 5 days.Disp: 10 tabletRfl: 0 Prescriptions as of 09/12/2024 - amphetamine-dextroamph etamine XR (ADDERALL XR) 30 mg capsule TAKE ONE CAPSULE BY MOUTH EVERY MORNING upon awakening - amoxicillin (AMOXIL) 875 mg tablet Take 1 tablet by mouth two times a day for 5 days. - topiramate (TOPAMAX) 50 mg tablet Take 1 tablet by mouth every 12 hours. - venlafaxine ER (EFFEXOR XR) 150 mg 24 hr capsule Take 1 Capsule By Oral Route 1 time per day with food Problem List As Of Date 09/12/2024 Noted Resolved Attention deficit disorder [F98.8] 10/25/2006 Obesity, Class III, BMI 40-49.9 (morbid obesity*10/25/2006 Oligomenorrhea [N91.5] 04/14/2012 PCOS (polycystic ovarian syndrome) [E28.2] 08/09/2013 Cannabis use disorder, moderate, dependence (HC*09/08/2018 Bipolar II disorder (HCC) [F31.81] 09/08/2018 Prescriptions ordered this encounter Disp Refills Start End AMOXICILLIN 875 MG TABLET 10 t* 0 09/12/2024 09/17/2024 Route: ORAL Sig: Take 1 tablet by mouth two times a day for 5 days. Medications Discontinued During This Encounter Prescriptions - VYVANSE 40 mg capsule (Discontinued) Reported on 09/12/2024 - nicotine polacrilex (NICORETTE) 4 mg gum (Discontinued) Reported on 09/12/2024 - sodium chloride (SALINE MIST) 0.65 % nasal spray (Discontinued) Reported on 09/12/2024 - fluticasone (FLONASE) 50 mcg/actuation nasal spray (Discontinued) Reported (more content not included)... Normal [facility] 04-12-[address] [facility] Telephone ([facility]) JENNIFER BERRY ([id number]) 1990 F Date Time Provider Department 04/12/24 ENE PHILLIPS During your visit today, we recorded the following information about you: Ginny Weber LPN 04/12/2024 1:[address] Phillips pt has not seen him since 2014. She is considered a new pt and his practice is closed. Attempted to contact pt but both contact numbers listed are not working numbers. Did send pt a msg although pt hasn't used this since 02/11/23. Appointment has been canceled. Ginny Weber LPN Allergies As of Date: 04/12/2024 Noted Allergy Reaction BUSPAR (BUSPIRONE HCL) 06/06/2015 14 - Other: See Comments Comments: Dizziness Date Reviewed: 03/29/2024 Reviewed by: Jenna Swan APRN.MA[employer]GER [employer]ING - Fully Assessed Prescriptions as of 04/12/2024 - topiramate (TOPAMAX) 50 mg tablet Take 1 tablet by mouth every 12 hours. - nicotine polacrilex (NICORETTE) 4 mg gum Take 1 Each by mouth as needed. - sodium chloride (SALINE MIST) 0.65 % nasal spray Use 1 [place] in the nose two times a day. - fluticasone (FLONASE) 50 mcg/actuation nasal spray Use 2 Sprays in each nostril two times a day. Rinse mouth after use. - benzonatate (TESSALON PERLES) 100 mg capsule Take 1 capsule by mouth three times a day as needed for cough. - VYVANSE 40 mg capsule - venlafaxine ER (EFFEXOR XR) 150 mg 24 hr capsule Take 1 Capsule By Oral Route 1 time per day with food Problem List As Of Date 04/12/2024 Noted Resolved Attention deficit disorder [F98.8] 10/25/2006 Obesity, Class III, BMI 40-49.9 (morbid obesity*10/25/2006 Oligomenorrhea [N91.5] 04/14/2012 PCOS (polycystic ovarian syndrome) [E28.2] 08/09/2013 Cannabis use disorder, moderate, dependence (HC*09/08/2018 Bipolar II disorder (HCC) [F31.81] 09/08/2018 Encounter Status:Closed by GINNY WEBER on 04/12/24 [facility]OVon 03-29-2024 CNOV Office Visit (WSTR ) JENNIFER BERRY ([id number]) 1990 F Date Time Provider Department 03/29/24 1:30 PM JENNA SWAN [facility] During your visit today, we recorded the following information about you: Temperature Pulse Respiration Blood pressure 98.4 degrees 71/minute 20/minute 160/90 Weight 154.2 kg Jenna Swan APRN.[facility] 03/29/2024 1:43 PM Signed SMOKING CESSATION: Your doctor advises you to stop smoking because of the bad effects it has on your health. Tobacco smoke has over 200 known poisons and smoking increases the risk of many medical problems including: Pneumonia, bronchitis, and emphysema. Cancers of the lung, lip, mouth, voice box, pancreas, and bladder. There are over 30 chemicals in tobacco smoke that cause cancer. Heart attacks, angina, stroke, and peripheral blood vessel disease. Stomach ulcers and internal bleeding. Stillbirths and smaller babies. Facial wrinkles, blindness, and increased risk for fractures. Cancer, respiratory infections, and heart disease in your spouse and children from second-hand smoke exposure and genetic damage to sperm. Even smoking lightly shortens your life expectancy by several years; a 2-pack a-day smoker loses about 8 years of his or her life. You can greatly reduce the risk of medical problems by stopping now. Within days of quitting smoking your circulation returns to normal, you lessen the risk of having a heart attack, and your lung capacity improves. It may take months to clear up your lungs. Quitting for 10 years cuts your lung cancer risk to about that of nonsmokers. It is not easy to quit smoking. Nicotine is addicting, and longtime habits are hard to change. To start with you can write down all your reasons to quit and tell your family and friends you want to quit and ask for their help. Throw your cigarettes away, chew gum or cinnamon sticks, keep your hands busy, and drink extra water or juice. Go for walks and practice deep breathing to relax. Think of all the money you are saving, from $500-1,000 a year for the average pack-a-day smoker. Nicotine gum and patches have clearly been shown to improve success at efforts to stop smoking. Zyban is an anti-depressant drug that may be prescribed to reduce nicotine withdrawal symptoms and the urge to smoke. For more information and advice on programs to stop smoking, call your doctor, the lung or heart association, or your local cancer society. You may also try the Tobacco [employer] [place] phone number 9-246-T-CAN-NOW ( ) or visit them on the internet, http://tobaccofrOvertone/. Adult Sinusitis Patient Education What is Sinusitis? Sinusitis [[id number]-hfc-[id number]-tis] is inflammation of the sinuses or swelling of the lining of the sinus cavity or nose. During an infection the sinuses become blocked with fluid causing swelling of the lining of the sinuses. Symptoms: (viral and bacterial infections) Stuffy nose Runny nose Postnasal drip Fever Toothache Headache Tiredness Cough Sore throat Face and head pressure and or pain Common causes: 98% of sinus infections are viral caused by viruses. Risk Factors of Sinusitis Include: Allergies, air pollution, indoor humidity and outdoor temperature changes, andstructural changes in the nose may contribute to sinus pain, pressure and congestion. When to get help? Temperature greater than 100.4 ?F Symptoms lasting more than 10 days or worsening symptoms greater than 7-10 days. If you do not improve or worsen after a course of antibiotics, you should be re-examined. Diagnosis and Treatment: Your healthcare provider will ask a number of questions about your symptoms and how long they have occurred. If symptoms of sinusitis persist greater than 10 days, it is possible you have a bacterial sinus infection and an antibiotic is prescribed. If it is viral, antibiotics will not help. You may be instructed to take nnso-[id number]-wpgoome medications for symptoms. including fever reducers acetaminophen or ibuprofen, nasal saline spray, cough and cold preparations and decongestants as prescribed by the physician, nurse practitioner or physician medical assistant cardiology. Self-Care and Prevention: Rest Fluids for hydration Good hand washing Humidifier Avoid smoking and exposure to second hand smoke Avoid sick contacts eJnna Swan APRN.[facility] 03/29/2024 1:52 PM Addendum [facility] Subjective Jennifer Berry is a 33 year old year old who presents to express care today with complaint of Nasal congestion, cough, sinus pressure x 2 weeks. Also agreeable to start smoking cessation today, smokes 1 ppd. Denies headaches, fever, sore throat, cough, shortness of breath, chest pains, Nausea, vomiting, changes in bowel or bladder or skin rashes. Taking OTC Cold and Flu meds Aside from symptoms as described above, patien (more content not included)... Normal [facility] STREP A MOLECULAR (POC)on Procedural Control Valid [facility] Strep A (POCT) Negative Negative [facility] Emergency Department Summary on 01-13-2023 Emergency Department Summary [facility] Medical Records Department [address] [place] [address] Emergency Department Summary 01/13/23 MR#: [id number] Acct: [id number] Name: JENNIFER BERRY Rep #: [id number] : 1990 32 From: Markell Jacques MD PCP: Dr. Ene Phillips MD Status:REG ER Location: ED HPI History of Present Illness Informant: patient Onset/Context/Timing Onset: Days Context: Gradual Onset Timing: Continuous Current Severity: Mild Maximum Severity: Mild Narrative Narrative: 32-year-old female history of ADHD and bipolar.'s concern she has a abscess on her left lateral chest wall. Its been there about 3 days. She squeezed it and remove the little bit of blood. No pus. No fever. Denies IV drug abuse. Prior similar symptoms: Yes Recent Illness/Hospitalizatio n: No PFSH [facility] Medical History (Updated 01/13/23 @ 05:[address] Markell Jacques MD) Depression Hormone deficiency PCOS (polycystic ovarian syndrome) Home Medications topiramate 25 mg tablet 25 mg PO BID 06/06/19 [History Last Taken Unknown] sertraline 100 mg tablet 150 mg PO DAILY 09/04/19 [History Last Taken Unknown] dextroamphetamine-amph etamine ER 30 mg 24hr capsule,extend release 30 mg PO DAILY 11/21/19 [History Last Taken Unknown] ondansetron 4 mg disintegrating tablet 4 mg PO Q8H PRN PRN Nausea #10 tabs 11/21/19 [Rx Last Taken Unknown] amoxicillin 875 mg-potassium clavulanate 125 mg tablet 1 tab PO BID 08/22/21 [History Last Taken Unknown] dexamethasone 0.75 mg tablet 2.25 mg PO DAILY 08/22/21 [History Last Taken Unknown] hydrocodone-acetaminop hen 5-325mg 5mg-325mg 1 tab PO Q6H PRN pain 3 days #10 tabs 08/22/21 [Rx Last Taken Unknown] ibuprofen 600 mg tablet 600 mg PO Q6H PRN PRN Pain 08/22/21 [History Last Taken Unknown] Allergy/AdvReac Type Severity Reaction Status Date / Time buspirone [From BuSpar] Allergy Nausea Verified 08/22/21 17:13 Family History Mother Cancer cervical Aunt Cancer cervical Grandmother Cancer cervical Other Diabetes Heart disease Surgical History History of cholecystectomy Social History Smoking Status: Current every day smoker tobacco type: cigarettes alcohol intake: never substance use type: does not use caffeine: Yes what type of physical activity do you participate in: walking and bicycling frequency: 3-4 times per week seatbelt use: always do you feel safe at home: Yes additional social history: [employer] [place] Patient is 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 No recent illness. No fever. Review of Systems ROS Unobtainable: Denies due to encephalopathy Constitutional Constitutional ED: Denies chills or fever(s) Eyes Eyes: Denies blurry vision ENT ENT ED: Denies ear pain Cardiovascular Cardiovascular: Denies chest pain Respiratory/Chest Respiratory/Chest: Denies cough Gastrointestinal Gastrointestinal: Denies abdominal pain Genitourinary Genitourinary ED: Denies dysuria or hematuria Musculoskeletal Musculoskeletal: Denies arthralgias Integumentary Reports abscess Neurologic Neurologic: Denies headache(s) Psychiatric Psychiatric: Denies anxiety Endocrine Endocrinology: Denies cold intolerance Hematologic/Lymphatic Hematologic/Lymphatic: Reports none Allergic/Immunologic Allergic/Immunologic ED: Denies mouth swelling or tongue swelling EXAM Physical Exam Narrative Exam Narrative: Well-appearing 32-year-old female. Vital signs stable afebrile. She does not look septic or toxic. No distress. HEENT exam unremarkable. Lungs clear. Heart regular rhythm no murmur. Abdomen soft nontender. Moving all 4 extremities. Left lateral rib cage chest wall there is about a dime to quarter size area that looks like possibly early abscess. There is no fluctuance there is minimal redness. There does appear to be firm, indurated infected tissue below it. Neurologically she is awake and alert with no focal motor deficits. Const Positive well nourished and well developed; Negative for cachectic, contractures or unkempt General Appearance ED: well developed and NAD; Negative for unkempt, cachectic, contractures, cyanotic, diaphoretic or pallor Nutritional Appearance: Negative for cachectic HEENT Reports moist mucous membranes; Denies dry mucous membranes Negative for trauma or tenderness Mouth ED: No dry mucous membranes Mouth: No dry mucous membranes Eyes PERRL and EOMs intact bilaterally General Eye ED: Negative for pale conjunctiva, scleral icterus or other Neck no lymphadenopathy, supple and no JVD General: Negative for tenderness Lymph Lymphatic: Negative for other Chest Wall palpation of chest normal; N (more content not included)... Normal [facility] CASE MANAGEMon 09-08-2018 CASE MANAGEM HNO ID: [id number] Author: Laureen Weaver (Sw) Service: Care Management Author Type: Editorial Intern Type: Care Mgt Progress Note Filed: 09/08/2018 11:49 AM Note Text: BEHAVIORAL HEALTH SOCIAL WORK DISCHARGE NOTE SERVICE DATE: 09/08/2018 SERVICE TIME: 1145 PATIENT'S DISCHARGE PLAN: Discharge Disposition Discharge Disposition: Home with Family/Friend Care Home Referral Information [facility]idential Treatment Center Referral Information [facility] Referral Information Crisis Stabilization Unit Acute Care Facility Referral Information Assisted Living Facility Referral Information Home Care Agency Referral Information Web Applications Programmer Guardian Psychiatry Follow-Up Appointment Psychiatrist Name: DR. 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 n/a Patient/Apparel Sales Leader Given/Explained Medicare Discharge Notice (IM letter): Not Applicable TRANSPORTATION ARRANGEMENTS: family to pickup PRESCRIPTIONS FILLED PRIOR TO DISCHARGE: tbd ADDITIONAL NOTES: Pt is d/c per Dr. Nicole. SW coordinated o/p provider care and scheduled appts and forwarded d/c clinicals appropriately. Pt denies Si and mood improved and will return home with family. Monique provided support. SIGNATURE: BJ Espitia PATIENT NAME: Jennifer Mahmood DATE: September 08, 2018 TIME: 11:45 AM [facility] PLAN OF CAREon 09-08-2018 PLAN OF CARE HNO ID: [id number] Author: Brunilda Cunningham (Sub Plant Manager) Service: Pharmacy Author Type: ? Type: Plan of Care Filed: 09/08/2018 10:29 AM Note Text: 3TECHNICIAN BEDSIDE DELIVERY SURVEY 1. Patient to use [facility] Bedside Delivery - YES Insurance Information as follows: 2. Insurance card on file - N/A 3. Credit card for payment - N/A Please call if patient is to be going home and would like to fill medications(if/once written) with bedside blocker and polisher gold wheel service. (Pharmacy hours: 7:00am - 5:30pm) Brunilda Cunningham (licensed veterinary technician) [phone] or Nhi Coronel [id number] [facility] ALLIED HEALTHon 09-07-2018 ALLIED HEALTH HNO ID: [id number] Author: Carole Mclaughlin (Therapist) [place] Service: ? Author Type: Therapist Type: Allied Health Filed: 09/07/2018 4:51 PM Note Text: PROGRESS NOTE BEHAVIORAL HEALTH Topic of Note: Group Participation SERVICE DATE: 09/07/2018 SERVICE TIME: 15:50-16:30 A-Pt stated that they are feeling content. Pt presented with moderate level of energy and euthymic affect. Pt's were asked to create a symbol that represents how they are feeling today or how they felt when they came into the hospital. Pt appropriately participated in activity and discussion. -I- Facilitated group re: symbols. Therapist provided opportunity to express thoughts and feelings. -E- Pt. could benefit from continued support, talking about thoughts and feelings in group and a opportunity to build positive coping mechanisms. SIGNATURE: Carole Slade, Adjunctive Therapist PATIENT NAME: Jennifer Mahmood DATE: September 07, 2018 TIME: 4:49 PM PAGER/CONTACT #: [facility] ALLIED HEALTH HNO ID: [id number] Author: Carole Mclaughlin (Therapist) [place] Service: ? Author Type: Therapist Type: Allied Health Filed: 09/07/2018 1:03 PM Note Text: PROGRESS NOTE BEHAVIORAL HEALTH Topic of Note: Group Participation SERVICE DATE: 09/07/2018 SERVICE TIME: 11:05-11:30 A-Pt stated that they are feeling comfortable. Pt presented with moderate level of energy and euthymic affect. Pt's were asked to complete a safety plan to utilize upon discharge. Pt appropriately participated in activity and discussion. -I- Facilitated group re: safety plan. Therapist provided opportunity to express thoughts and feelings. -E- Pt. could benefit from continued support, talking about thoughts and feelings in group and a opportunity to build positive coping mechanisms. SIGNATURE: Carole Slade, Adjunctive Therapist PATIENT NAME: Jennifer Mahmood DATE: September 07, 2018 TIME: 1:00 PM PAGER/CONTACT #: [facility] Hgb A1con 09-07-2018 Hemoglobin A1c/Hemoglobin.total mass fraction (Bld) 103 mg/dl Normal [facility] Comment on above: Performed By: #### U RIN2 #### [place] [address] Hemoglobin A1c/Hemoglobin.total mass fraction (Bld) 5.2 % Normal 4.2-6.3 [facility] Comment on above: Result Comment: Meth od is National Glycohemoglobin Standardization Program (NGSP) compliant. Performed By: #### U RIN2 #### [place] [address] Lipid Profileon 09-07-2018 Cholesterol in HDL mass conc 39 mg/dL Normal >40 [facility] Comment on above: Performed By: #### U RIN2 #### [place] [address] Cholesterol in LDL mass conc 147 mg/dL Normal [facility] Comment on above: Result Comment: No C AD and with fewer than 2 CAD risk factors <160 mg/dL No CAD but with 2 or more CAD risk factors <130 mg/dL Definite CAD or other atherosclerotic disease <100 mg/dL Performed By: #### U RIN2 #### [facility] [address] [place], [place] [address] Cholesterol in LDL/Cholesterol in HDL mass ratio 3.8 High 0.6-3.6 [facility] Comment on above: Result Comment: LDL, VLDL,LDL/HDL, Invalid if Triglyceride >400 Performed By: #### U RIN2 #### [facility] [address] [place], [place] [address] Cholesterol.total/Ch olesterol in HDL mass ratio 5.5 {ratio} High 1.8-5.3 [facility] Comment on above: Performed By: #### U RIN2 #### [address] [address] Cholesterol in VLDL mass conc 29 mg/dL Normal <50 Desired [facility] Comment on above: Performed By: #### U RIN2 #### [facility] [address] [place], [place] [address] Triglyceride mass conc 145 mg/dL Normal 0-149 [facility] Comment on above: Result Comment: < 20 0 Desirable Result invalid if not a fasting specimen. Performed By: #### U RIN2 #### [address] [address] Cholesterol mass conc 215 mg/dL High 0-199 [facility] Comment on above: Result Comment: <200 Desirable 200-240 Borderline >240 High Performed By: #### U RIN2 #### [address] [address] NURSING PROGon 09-07-2018 Protein mass conc HNO ID: [id number] Author: Lina (Rn) ANA M Langston Service: Nursing Author Type: Registered Nurse Type: Nursing Progress Note Filed: 09/07/2018 9:32 PM Note Text: Nursing Progress Note Patient Name: Jennifer Mahmood Patient Location: [place] [address]/[facility]- 41* __ Daily Note: Patient approached in day area. Attends group, partakes in snack. Appropriate social interactions on unit. No medication scheduled at this time. PRN trazodone provided, per request, for insomnia. Denies thoughts of harming self or others. Denies perceptual disturbance. Denies feeling anxious or depressed at this time. Encouraged to seek staff with questions, issues or concerns. Will monitor for continued safety on unit per routine psychiatric observation. This note was completed by: Lina Langston RN [facility] Protein mass conc HNO ID: [id number] Author: Ivette Morin) ANA M Mo Service: Nursing Author Type: Registered Nurse Type: Nursing Progress Note Filed: 09/07/2018 3:46 PM Note Text: Nursing Progress Note Patient Name: Jennifer Mahmood Patient Location: [id number]* __ Daily Note: Pt has been up on the unit throughout intermittently throughout the day. Pt is social with her peers. Pt attends groups. Pt bright and pleasant during interactions. Pt denies feeling depressed or anxious. Pt further denies SI/HI/AH/VH. Pt reports that she is doing well and just waiting to be discharged. Pt voices no complaints or concerns. Encouraged pt to continue attending groups, interacting with peers and to seek out staff as needed. Pt remains safe. Will continue to monitor. This note was completed by: Ivette Mo RN [facility] PROGRESSon 09-07-2018 Protein mass conc HNO ID: [id number] Author: Nasima Nicole Service: Psychiatry Author Type: Physician Type: Progress Notes Filed: 09/07/2018 5:05 PM Note Text: PROGRESS NOTE BEHAVIORAL HEALTH SERVICE DATE: 09/07/2018 SERVICE TIME: 1100 The Interdisciplinary team met and reviewed treatment goals and discharge planning. Subjective Patient seen in follow up for severe bipolar depression. Chart reviewed. Discussed with staff. Attending groups and taking schedule medications. Behaviorally appropriate. Slept well overnight. Denies medication side effects. Continues to report feeling stable in terms of her mood, no longer endorsing thoughts of suicide, homicide or any symptoms consistent with psychosis or diomedes. Reporting feeling somewhat anxious due to her lack of insurance and financial struggles of her family. Agreeable to remain in the hospital for now, showing insight into her symptoms prior to admission. No somatic complaints endorsed. PFSH: no changes Objective PHYSICAL EXAM: BP 148/82 Pulse (!) 58 Temp 36.3 ?C (97.3 ?F) (Temporal) Resp 18 Ht 167.7 cm (5' 6.02) Wt (!) 152.8 kg (336 lb 13.8 oz) SpO2 98% BMI 54.33 kg/m? MENTAL STATUS EXAMINATION: Appearance: Casually dressed, Appears stated age and Obese Behavior: Appropriate Orientation: Person, Place, Time and Situation Speech/Language: Talkative, nonpressured, normal rate/volume Mood/Affect: Bright and Euthymic Thought Form: Coherent and Logical Thought Content: Coherent Logical Suicidal Ideations: No suicidal ideation, intent or plan. Homicidal Ideations: No homicidal ideation, intent or plan. Insight: Limited Judgment: Fair Memory/Cognition: Intact Psychomotor: Psychomotor activity was normal NEW PROBLEMS ON UNIT SINCE LAST ENCOUNTER: None Current Facility-Administered Medications Medication Dose Route Frequency - Lip Protectant with Sunscreen SPF 15 1 application Stick (Blistex) 1 application TOPICAL PRN - benzocaine-menthol 1 Lozenge (CEPACOL) 1 Lozenge MUCOUS MEMBRANE (TOPICAL MOUTH AND THROAT) q 2 H PRN - nicotine polacrilex 2 mg gum (NICORETTE) 2 mg ORAL q 2 H PRN - traZODone 50 mg tab(s) (DESYREL) 50 mg ORAL HS PRN - hydrOXYzine HCl 50 mg tab(s) (ATARAX) 50 mg ORAL q 4 H PRN - acetaminophen 650 mg tab(s) (TYLENOL) 650 mg ORAL q 6 H PRN - aluminum-magnesium hydroxide-simethicone 200-200-20 mg/5 mL 30 mL (MAALOX,MYLANTA,MAG-AL PLUS) 30 mL ORAL q 4 H PRN - magnesium hydroxide 400 mg/5 mL 30 mL (MOM) 30 mL ORAL DAILY PRN - sertraline 50 mg tab(s) (ZOLOFT) 50 mg ORAL DAILY - haloperidol lactate 5 mg injection (HALDOL) 5 mg INTRAMUSCULAR q 6 H PRN Or - haloperidol 5 mg tab(s) (HALDOL) 5 mg ORAL q 6 H PRN - LORazepam 2 mg injection (ATIVAN) 2 mg INTRAMUSCULAR q 6 H PRN Or - LORazepam 2 mg (ATIVAN) 2 mg ORAL q 6 H PRN - diphenhydrAMINE 50 mg (BENADRYL) 50 mg ORAL q 6 H PRN Or - diphenhydrAMINE 50 mg injection (BENADRYL) 50 mg INTRAMUSCULAR q 6 H PRN - ziprasidone 20 mg cap(s) (GEODON) 20 mg ORAL BID w MEALS - traZODone 50 mg tab(s) (DESYREL) 50 mg ORAL HS PRN DATA: Diagnostic tests reviewed for today's visit: No new labs Assessment/Plan DIAGNOSIS: 1. PRIMARY: Mood Disorder Mood Disorder NOS - Bipolar II vs MDD, mixed features 2. ADHD 3. Cannabis Use Disorder RISK ASSESSMENT: Suicide: moderate Homicide: low Deliberate Self-Harm: moderate Aggression: low Imminent Physical Self Impairment: moderate INFORMED CONSENT: Yes, completed with the Patient. Discussed the risks, benefits and alternatives to the medication(s) recommended. Consent was given. INTERVENTION: Biological: continue geodon, zoloft Psychological: continue groups Social: dc planning DISCHARGE PLANNING: Discharge by perhaps Tuesday. SIGNATURE: Nasima Nicole MD PATIENT NAME: Jennifer Mahmood DATE: September 07, 2018 TIME: 5:01 PM PAGER/CONTACT#: [phone] [facility] ALLIED HEALTHon 09-06-2018 ALLIED HEALTH HNO ID: [id number] Author: Regla (Therapist) [place] Service: ? Author Type: Therapist Type: Allied Health Filed: 09/06/2018 3:33 PM Note Text: PROGRESS NOTE BEHAVIORAL HEALTH Topic of Note: Group Participation SERVICE DATE: 09/06/2018 SERVICE TIME: 5188-9618 A-Pt presented with?moderate?level of energy and?bright?affect. Pt reported feeling more comfortable. -I- Facilitated group re: Open processing. Therapist?provided opportunity to express thoughts and feelings. Pt?was?pleasant and?cooperative;?engag ed?appropriately?in task and discussion. -E- Pt. could benefit from emotional support, processing thoughts and feelings in a safe space, an opportunity to learn emotional regulation and explore healthy coping skills.? SIGNATURE: Regla Head, Therapist PATIENT NAME: Jennifer Mahmood DATE: September 06, 2018 TIME: 3:31 PM PAGER/CONTACT #: [facility] ALLIED HEALTH HNO ID: [id number] Author: Carole Mclaughlin (Therapist) [place] Service: ? Author Type: Therapist Type: Allied Health Filed: 09/06/2018 12:49 PM Note Text: PROGRESS NOTE BEHAVIORAL HEALTH Topic of Note: Group Therapy Assessment SERVICE DATE: 09/06/2018 SERVICE TIME: Pt is a 27 year old female who was admitted to [facility] due to depression, visual hallucinations, homicidal ideation and suicidal ideation. Current Stressors: Pt has a history of bipolar disorder. Pt presented to the emergency with suicidal ideation to slit her throat. Pt reports fleeting suicidal ideation for the past 2-3 months. Pt has been noncompliant with her medications for over a week due to her reportedly being worried about her weight. Pt reports he stressors as money, her mother who is a recovering addict and family. Pt voiced thoughts to harm her mother in law but no specific plan. Pt reports visual hallucinations of seeing shadows out the corner of her eye. Pt is appropriate for group and is encouraged to attend. Pt could benefit from continued support, talking about thoughts and feelings in group and a opportunity to learn positive coping skills. SIGNATURE: Caorle Slade, Adjunctive Therapist PATIENT NAME: Jennifer Mahmood DATE: September 06, 2018 TIME: 12:18 PM PAGER/CONTACT #: [facility] ALLIED HEALTH HNO ID: [id number] Author: Regla TesfayeTherapist) [place] Service: ? Author Type: Therapist Type: Allied Health Filed: 09/06/2018 11:54 AM Note Text: PROGRESS NOTE BEHAVIORAL HEALTH Topic of Note: Group Participation SERVICE DATE: 09/06/2018 SERVICE TIME: 950-1040 ? A-Pt presented with?moderate?level of energy and?bright?affect. Pt reported feeling wonderful. -I- Facilitated group re: Open processing. Therapist?provided opportunity to express thoughts and feelings. Pt?was?pleasant and cooperative;?engaged?a ppropriately?in task and discussion.?-E- Pt. could benefit from emotional support, processing thoughts and feelings in a safe space, an opportunity to learn emotional regulation and explore healthy coping skills.? SIGNATURE: Regla Head Therapist PATIENT NAME: Jennifer Mahmood DATE: September 06, 2018 TIME: 11:47 AM PAGER/CONTACT #: [facility] CASE MGT INSHARMILA Delacruz 2018 CASE MGT INIT JAMIE HNO ID: [id number] Author: Laureen Weaver (Sw) Service: Care Management Author Type: Editorial Intern Type: Care Mgt Initial Assessment Filed: 09/06/2018 1:50 PM Note Text: BEHAVIORAL HEALTH SOCIAL WORK/CARE MANAGEMENT ASSESSMENT AND DISCHARGE PLAN SERVICE DATE: 09/06/2018 SERVICE TIME: 144 Reason for Admission: Suicide Ideation, Depression, grief, stopped taking medications. Legal Status: Involuntary - Medical Certificate Important Contacts: Primary Contact Name: Annmarie Quinones / Relationship: Mother / Cell / Does the patient/physician relations representative consent to contact with the above at this time? Yes Information obtained from: Chart Patient Referred by: Police/EMS Living Arrangements Prior to Admission: Own Home Prior to Admission, Patient was Living with: Spouse and maternal grandfather Marital Status: . Relationship described as supportive Children (including quality of relationship): Patient does not have any children Sexual Orientation: Heterosexual SOCIAL HISTORY Jennifer Mahmood was born and raised in [place] by her biological parents. Her childhood is described as fair. She has patient's father is alive, patient's father is estranged and patient's mother is alive. She has strained relationship with mother. 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 No, Patient/Apparel Sales Leader denies Substance Use and Treatment History: Patient/Apparel Sales Leader Denies Do special considerations/accommo dations need to be made (i.e. preferred language, literacy, gender identity, physical disability such as deaf or blind, etc)? No, Patient/Apparel Sales Leader Denies Are there practices or beliefs that may affect or influence treatment? No, Patient/Apparel Sales Leader Denies Patient Strengths/Protective Factors (Minimum of Two): Able to Communicate Needs Connected with Outpatient Providers Future-Oriented Insight Responsibility for Others Stable Housing Supportive Friends/Family FAMILY PSYCHIATRIC HISTORY Substance Abuse: Mother DISCHARGE RECOMMENDATIONS: Relinkage With Previous Providers Psychiatry Follow-Up Patient/Apparel Sales Leader Agreeable With Discharge Recommendations At This Time? Yes FREEDOM OF CHOICE EXPLAINED: n/a NEEDS PRIOR TO DISCHARGE: Waiting for: Psychiatric Stabilization Transportation Communication with Physician Physician to Discharge OBSTACLES TO TREATMENT/POST-DISCHAR GE CHALLENGES: None At This Time SUMMARY: Sw completed assessment. SW reconnected pt with o/p provider for follow up care and added a therapist. 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 Sw provided self care support. Sw will continue to monitor pt progress. SIGNATURE: BJ Espitia PATIENT NAME: Jennifer Mahmood DATE: September 06, 2018 TIME: 1:44 PM Normal [facility] HISTORY PHYSICALon 9 HISTORY PHYSICAL HNO ID: [id number] Author: Nasima Nicole Service: Psychiatry Author Type: Physician Type: HANDP Filed: 09/06/2018 5:45 PM Note Text: HISTORY AND PHYSICAL BEHAVIORAL HEALTH SERVICE DATE: 09/06/2018 SERVICE TIME: 5:33 PM IDENTIFYING INFORMATION: Jennifer Mahmood is a 27 year old unemployed female who lives with spouse in [place]. REASON FOR ADMISSION: Depression Subjective HPI: Jennifer presents for admission secondary to worsening mood, suicidal thoughts, homicidal thoughts. She has a prior history of being diagnosed with bipolar disorder and ADHD. She is currently in psychiatric treatment. She reports that she was diagnosed as having bipolar disorder 6 months ago and started on lithium, after which she and approximately 60 pounds. She reports that her psychiatrist encouraged her to taper off of lithium approximately 2 weeks ago, instead of doing this she discontinued all of her psychiatric meds without notifying her provider. Her mood worsened, and she states that she became manic for 2 weeks with an irritable mood and agitation directed towards her . She presented to the ED reporting Thoughts of slitting her throat. She also reported that she had thoughts of killing her [id number]-ley. She states now that she had no actual plan or intention to really kill her [id number] if she does not get along well with her. STRESSORS: mother in law PSYCHIATRIC REVIEW OF SYMPTOMS: Depression: + Depressed mood, + Sleep disturbance , + Decreased energy and + Decreased Concentration with positive suicidal ideation Diomedes: More talkative, Racing Thought, Distractible, Risky Behavior and Irritable mood Psychosis: Denies any auditory / visual hallucination or paranoid ideation. YVROSE: Denies any symptoms of YVROSE OCD: Denies any symptoms of OCD. PTSD: Denies any PTSD symptoms. MEDICAL REVIEW OF SYSTEMS: GENERAL: Negative for malaise, significant weight loss and fever. HEENT: No changes in hearing or vision, no nose bleeds or other nasal problems. RESPIRATORY: Negative for cough, wheezing and shortness of breath. CARDIOVASCULAR: Negative for chest pain, leg swelling and palpitations. GI: Negative for abdominal discomfort, blood in stools or black stools. : Negative for dysuria, frequency and incontinence. MUSCULOSKELETAL: Negative for joint pain or swelling, back pain, and muscle pain. SKIN: Negative for lesions, rash, and itching. HEMATOLOGY/LYMPHOLOGY Negative for prolonged bleeding, bruising easily, and swollen nodes. ENDOCRINE: Negative for cold or heat intolerance, polyuria, polydipsia and goiter. NEURO: Negative for headaches, syncope, seizures and paralysis. PSYCHIATRIC HISTORY: Prior Diagnosis: ADHD and Bipolar Affective Disorder Current Psychiatrist: Dr. 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 Service: none Last Hospitalization: none; Total Hospitalizations: 0 History of Suicide Attempts: Total: denies; Methods: NA Previous Discontinued Psychiatric Med Trials: Adderall, Ativan, Depakote, Effexor, Geodon, Schwana, Risperdal, Seroquel, Wellbutrin, Xanax and Zoloft PAST MEDICAL HISTORY Diagnosis Date - Allergic rhinitis, cause unspecified Allergic rhinitis - Attention deficit disorder without mention of hyperactivity - Bipolar disorder (HCC) - Marijuana abuse 08/08/2017 ER Tox screen 08/07/2017 - Morbid obesity (HCC) PAST SURGICAL HISTORY Procedure Laterality Date - GALLBLADDER/EF 08/2013 HOME MEDICATIONS: Medications Prior to Admission: lithium carbonate (ESKALITH) 150 mg capsule Take 150 mg by mouth twice daily with meals. Disp: Rfl: Taking fluticasone (FLONASE) 50 mcg/actuation nasal spray Use 2 Sprays in each nostril once daily. Rinse mouth after use. (Patient not taking: Reported on 06/27/2018 ) Disp: 1 Bottle Rfl: 1 Not Taking sertraline (ZOLOFT) 50 mg tablet Take 50 mg by mouth once daily. Disp: Rfl: Taking amphetamine-dextroamph etamine XR (ADDERALL XR) 20 mg 24 hr capsule Take 1 capsule by mouth once daily. (Patient taking differently: Take 30 mg by mouth once daily. ) Disp: 30 capsule Rfl: 0 Taking MEDICATION ADHERENCE: Poor SUBSTANCE ABUSE HISTORY: Tobacco: .5 ppd ETOH: No history of abuse or dependence. ILLICIT SUBSTANCE USE: Cannabis daily, using since 15. Sometimes edibles and dabs ALLERGIES Allergen Reactions - Buspar [Buspirone H* Other: See Comments dizziness SOCIAL HISTORY: Born AND Raised in [facility] Childhood: Nl Development, no abuse, Mom was an addict, raised by grandparents Education: High school Employment: Unemployed, not seeking work. Relationships: The patient currently is x2 years Children: none Current Supports Include: spouse. Legal History: Disorderly conduct Temple Affiliations: none FAMILY HISTORY: Anxiety (Father), Bipolar disorder (Mother, Maternal Grandmother and Maternal Aunt) and Chemical dependency (Mother) Objective VITALS: BP 129/50 Pulse (!) 52 Temp 36.2 ?C (97.2 ?F) (Temporal) Resp 16 Ht 167.7 cm (5' 6.02) Wt (!) 152.8 kg (336 lb 13.8 oz) SpO2 100% BMI 54.33 kg/m? MENTAL STATUS EXAMINATION: Appearance: Casually dressed, Appears stated age, Disheveled and Obese Behavior: Appropriate and Dramatic Orientation: Person, Place, Time and Situation Speech/Language: Talkative, normal rate/volume Mood/Affect: Bright and Euthymic Thought Form: Tangential Thought Content: Coherent Suicidal Ideations: Thoughts of suicide, no intent or plan. Homicidal Ideations: Thoughts of killing, but will not. Insight: Limited Judgment: Grossly impaired Memory/Cognition: Mildly Impaired Psychomotor: Psychomotor activity was normal PHYSICAL EXAM: Blood pressure 129/50, pulse (!) 52, temperature 36.2 ?C (97.2 ?F), temperature source Temporal, resp. rate 16, height 167.7 cm (5' 6.02), weight (!) 152.8 kg (336 lb 13.8 oz), SpO2 100 %. GENERAL: Alert, no distress, cooperative. NEUROLOGIC: No gross abnormal findings including cranial nerves 2-12. MUSCULOSKELETAL: Normal muscle strength, Normal muscle tone and No involuntary movements. GAIT: Normal. DATA: Diagnostic tests reviewed for today's visit: Most recent labs CT Brain (if indicated): Not Indicated TOXICOLOGY RESULTS FOR THE PAST 72 HOURS: Recent Labs 09/05/18 1425 SALCO <3 WBC (thou/cmm) Date Value 09/05/2018 10.57 Hematocrit (%) Date Value 09/05/2018 49.7 Platelet Count (thou/cmm) Date Value 09/05/2018 298 Sodium (mEq/L) Date Value 09/05/2018 138 Potassium (mEq/L) Date Value 09/05/2018 3.9 BUN (mg/dL) Date Value 09/05/2018 14 AST (U/L) Date Value 09/05/2018 16 ALT (U/L) Date Value 09/05/2018 25 TSH (uU/mL) Date Value 08/09/2018 1.320 Assessment/Plan DIAGNOSIS: 1. PRIMARY: Mood Disorder Mood Disorder NOS 2. Bipolar II Disorder vs MDD with mixed features 3. ADHD by hx INFORMED CONSENT: Yes, completed with the Patient. Discussed the risks, benefits and alternatives to the medication(s) recommended. Consent was given. RISK ASSESSMENT: Suicide: Moderate Homicide: Low Deliberate Self-Harm: High Aggression: Moderate Imminent Physical Self Impairment: Moderate PLAN: Medications: Continue sertraline, discontinue lithium, start trial of ziprasidone twice daily, hold stimulants for now Safety Precautions: level 2 Obtain Collateral From: family SIGNATURE: Nasima Nicole MD PATIENT NAME: Jennifer Mahmood DATE: September 06, 2018 TIME: 5:33 PM PAGER/CONTACT#: [phone] Normal [facility] NURSING PROGon 09-06-2018 Protein mass conc HNO ID: [id number] Author: Mer TesfayeRn) ANA M Posadas Service: Nursing Author Type: Registered Nurse Type: Nursing Progress Note Filed: 09/06/2018 10:43 PM Note Text: Nursing Progress Note Patient Name: Jennifer Mahmood Patient Location: [place] [id number]/[place] [address]* __ Daily Note:Patient appears resting in bed in appropriate clothes, adequate hygiene, bright and pleasant w/ assessment. States that she is feeling much better I was very overwhelmed yesterday I don't know if it's because I'm in a routine or finally getting some medicine in me but I don't feel as manic. Pt denies SI,HI,AVH, rates anxiety 5/10 and depression 5/10. States those both are a manageable number for her. States the doctor told her she will be here until Tuesday and she has been tripping because I don't have any insurance RN provided reassurance to pt that RN will notify correct staff, pt verbalized understanding. Pt verbalizes safety on unit. Reports going to groups and being social on unit. Reports adequate appetite, disrupted sleep, RN encouraged pt to seek staff if not sleeping well. Pt denies any current pain, questions or concerns. This RN provided emotional support, encouraged pt to attend groups ,seek staff for concerns , and will continue to monitor for safety. 2111: Pt given trazodone 30 mg po for sleep. 2237: Pt at RN station stating she cannot sleep. Dr. Young called, ordered an additional 50mg trazodone po PRN for sleep. 2240: Pt given prn trazodone 50 mg po, will continue to monitor. This note was completed by: Mer Posadas RN [facility] Protein mass conc HNO ID: [id number] Author: Martha TesfayeRn) ANA M Kimbrough Service: ? Author Type: Registered Nurse Type: Nursing Progress Note Filed: 09/06/2018 11:03 AM Note Text: Nursing Progress Note Patient Name: Jennifer Mahmood Patient Location: [id number]/[id number] 41* __ Daily Note: Pt cooperative with stage technician. Pt states she was admitted due to stopping her medications for a week. Pt states that her PCP advised her to stop taking her lithium to see if her increased appetite was caused by the medication. Pt discontinued her other home medications on her own. Pt states that she got in an argument with her last night and voiced suicidal ideation to him. Pt states I think I just scared everyone. I don't think I was actually going to harm myself. Pt rates anxiety and depression 11/27. Pt denies SI/HI/AH. Pt states that her depression comes and goes but the anxiety is always present. Pt states that she has always had visual hallucinations and she sees shadows. Pt reports that she currently does not feel like she is a risk to herself or anyone else. Pt encouraged to seek staff with any concerns. Will continue to monitor for safety. This note was completed by: Martha Kimbrough RN [facility] Protein mass conc HNO ID: [id number] Author: Daxa (Rn) ANA M Garcia Service: Nursing Author Type: Registered Nurse Type: Nursing Progress Note Filed: 09/06/2018 2:15 AM Note Text: Nursing Progress Note Patient Name: Jennifer Mahmood Patient Location: [id number]* __ Patient arrived on unit from ED via wheelchair with 1 RN and 1 psych triage nurse. Patient oriented to unit, unit policies, room, and video monitoring. Patient states she is here because I was worried I was going to hurt myself or someone else. Patient came into the ED with SI and states she had plan to just take a bunch of pills, shoot myself in the head, or drive my car off a bridge. Patient states she has been having fleeting SI everyday for the past 2-3 months. Patient stopped taking all medications a week and a half ago because she was worried about her weight. Patient reports a recent weight gain on 60lbs. Patient currently voices passive SI. Patient voices thoughts of harming mother in law with no plan or intent. When asked about hallucinations, patient states I'll see stuff out of the corner of my eye, shadows. Patient denies AH. Patient contracts for safety. Patient states she has a history of SIB and last cut herself a year ago. Patient reports anxiety and depression 01/27. Patient reports stressors as money, being crazy, my mom, and my family stating they're assholes. They take a lot from me. When asked what is causing the SI, patient states I have a lot on my plate. Patient becomes tearful and states My grandma a year and a half ago and I take care of my and grandpa. Patient states my aunt and mom are recovering addicts. It's hard for me to forgive someone for all the shit they've done. 2229 Patient observed talking on the phone swearing loudly and states I'm about to lose my shit. Patient hangs up phone. Patient is tearful and asks nurse if she can go home. Patient indicates that she does not like room assignment. Emotional support provided. Patient switched from room 6417-1 to 6413-1. PRN atarax administered. Patient indicates that she can keep behavior in control. Dr. Galloway notified of outburst on phone and thoughts of harming mother in law. ordered benadryl, haldol, and ativan PO or IM PRN for agitation. Patient sitting in back jernigan filling out menu. Will continue to monitor. 2305 Patient states atarax effective. PRN trazodone administered upon request for insomnia. Will continue to monitor. 0030 Patient asleep in bed, trazodone effective. Will continue to monitor. This note was completed by: Daxa Garcia, RN Normal [facility] Alcohol, Serumon 09-05-2018 Alcohol, Serum < 3 Normal [facility] Comment on above: Performed By: #### A LC #### [facility] [address] [place] [address] CPKon 09-05-2018 CK enzyme act/vol 121 U/L Normal 26-192 [facility] Comment on above: Performed By: #### C K #### [facility] [address] [place] [address] Comprehensive Panelon 2018 ALP enzyme act/vol 46 U/L Normal 46-116 [facility] Comment on above: Performed By: #### P 14 #### [facility] [address] [place] [address] Bilirubin mass conc 0.7 mg/dL Normal 0.2-1.0 [facility] Comment on above: Performed By: #### P 14 #### [facility] [address] [place] [address] Protein mass conc 8.3 g/dL High 6.4-8.2 [facility] Comment on above: Performed By: #### P 14 #### [facility] [address] [place] [address] ALT enzyme act/vol 25 U/L Normal 12-78 [facility] Comment on above: Performed By: #### P 14 #### [facility] [address] [place] [address] AST enzyme act/vol 16 U/L Normal 9-37 [facility] Comment on above: Performed By: #### P 14 #### [facility] [address] [place], [place] [address] Creatinine mass conc 0.73 mg/dL Normal 0.51-0.95 [facility] Comment on above: Performed By: #### P 14 #### [facility] [address] [place] [address] Albumin mass conc 3.9 g/dL Normal 3.4-5.0 [facility] Comment on above: Performed By: #### P 14 #### [facility] [address] [place], [place] [address] Anion gap molar conc 10 mmol/L Normal 8-16 [facility] Comment on above: Performed By: #### P 14 #### [facility] [address] [place], [place] [address] Calcium mass conc 9.6 mg/dL Normal 8.5-10.1 [facility] Comment on above: Performed By: #### P 14 #### [facility] [address] [place] [address] CO2 molar conc 26 mmol/L Normal 21-32 [facility] Comment on above: Performed By: #### P 14 #### [facility] [address] [place] [address] Glucose mass conc 83 mg/dL Normal 70-99 [facility] Comment on above: Performed By: #### P 14 #### [facility] [address] [place] [address] Urea nitrogen mass conc 14 mg/dL Normal 7-18 [facility] Comment on above: Performed By: #### P 14 #### [facility] [address] [place] [address] Chloride molar conc 106 mmol/L Normal 98-107 [facility] Comment on above: Performed By: #### P 14 #### [facility] [address] [place] [address] Potassium molar conc 3.9 mmol/L Normal 3.5-5.1 [facility] Comment on above: Performed By: #### P 14 #### [facility] [address] [place] [address] Sodium molar conc 138 mmol/L Normal 136-145 [facility] Comment on above: Performed By: #### P 14 #### [facility] [address] [place] [address] ED NOTEon 09-05-2018 ED NOTE HNO ID: [id number] Author: Cindy Morin) ANA M Mejia Service: Emergency Medicine Author Type: Registered Nurse Type: ED Notes Filed: 09/05/2018 9:27 PM Note Text: HCG sent to main lab Normal [facility] ED NOTE HNO ID: [id number] Author: Cindy TesfayeRn) ANA M Mejia Service: Emergency Medicine Author Type: Registered Nurse Type: ED Notes Filed: 09/05/2018 7:43 PM Note Text: Patient's identity verified by patient stating name, Patient's identity verified by patient stating date, Patient's identity verified by hospital ID [email or web address]. Patient AANDOx3, RA, MAEx4, sitter remains at bedside. Patient in bed, will continue to monitor, safety maintained, call light within reach. All needs met at this time. Normal [facility] ED NOTE HNO ID: [id number] Author: Uzair Wick (Tech) Service: Emergency Medicine Author Type: Payroll Tax Analyst Type: ED Notes Filed: 09/05/2018 2:42 PM Note Text: urine specimen obtained and sent. [facility] ED PROV NOTEon 09-05-2018 Protein mass conc HNO ID: [id number] Author: NETTIE Collins Pa-C Service: Emergency Medicine Author Type: Physician Steward/Stewardess Second Type: ED Provider Notes Filed: 09/05/2018 7:21 PM Note Text: ED Midlevel Continuation of Care Note September 05, 2018 6:58 PMJennifer Whitaker Ela was endorsed to me by Marianne Martinez PA-C. Briefly, the patient initially presented to the ED for suicidal ideation. Patient took herself off of all her medications cold turkey about a week and a half ago.Marianne attempted to get the patient admitted [place] go to private psychiatry. She is pink fluids. Awaiting callback from [facility] inpatient psychiatrist. Plan: Discussed with Dr. Galloway, accepts the patient to 6100. Admit placed. Updated patient and Dr. Johnson. ERIK Collins Pa-C, PA 09/05/181920 [facility] Protein mass conc HNO ID: [id number] Author: Irasema Johnson MD Service: Emergency Medicine Author Type: Physician Type: ED Provider Notes Filed: 09/07/2018 6:57 AM Note Text: ED Provider Note Patient Name: Jennifer Mahmood SERVICE DATE: 09/05/18 History Patient presents with: Suicidal Ideation: Pt states she wants to slit her throat. Pt has hx of bipolar disorder, anxiety and depression. Pt states she was supposed to wean off her Schwana, Zoloft, and Adderall but stopped them cold turkey about a week and a half ago. Pt AANDOx3 upon arrival. Pt denies pain upon arrival. 27-year-old female with past medical history of obesity, THC use, bipolar disorder, ADD, and anxiety presents to the ED with chief complaint of suicidal ideation. Patient states that she follows with Dr. Schulz, with Psychology. With the direction from her psychiatrist, she was instructed to wean off of her lithium as she had been gaining weight. Pt states that instead of weaning off of her lithium, she decided to stop taking all of her medications cold turkey. She stopped taking her lithium, adderal, and Zolft 1.5 weeks ago. patient presents today for worsening over the past week. States she has had thoughts of slitting her throat and that my family would be better off without me. States she has felt more anxious and overwhelmed and as though nothing is worth it. She denies having plan for suicide currently. Denies homicidal ideation. She does state that at times she sees things out of the corner of her eyes and hears things in other rooms that people do not. Denies hearing any voices talking to her. She also reports increased insomnia and appetite. Patient states she took Ativan prior to presenting to the ED which she feels has helped her anxiety and improved her thoughts of suicide. Patient denies any other complaints at this time including fevers/chills, headache, lightheadedness/dizzin ess, URI symptoms, chest pain, shortness of breath, nausea/vomiting, abdominal pain, change in bowel habits, and urinary symptoms. PAST MEDICAL HISTORY Diagnosis Date - Allergic rhinitis, cause unspecified Allergic rhinitis - Attention deficit disorder without mention of hyperactivity - Bipolar disorder (HCC) - Marijuana abuse 08/08/2017 ER Tox screen 08/07/2017 - Morbid obesity (HCC) PAST SURGICAL HISTORY Procedure Laterality Date - GALLBLADDER/EF 08/2013 FAMILY HISTORY Problem Relation Age of Onset - Cancer Mother ovarian - Cancer Maternal Aunt ovarian Social History Tobacco Use - Smoking status: Current Every Day Smoker Packs/day: 0.50 - Smokeless tobacco: Never Used Substance and Sexual Activity - Alcohol use: No - Drug use: Yes - Sexual activity: Yes Partners: Male control/protection: None ALLERGIES Allergen Reactions - Buspar [Buspirone H* Other: See Comments dizziness Review of Systems Constitutional: Negative for appetite change, chills, diaphoresis, fatigue, fever and unexpected weight change. HENT: Negative for congestion, ear discharge, ear pain, hearing loss, rhinorrhea, sinus pressure, sore throat, tinnitus and trouble swallowing. Eyes: Negative for photophobia, pain, discharge, redness and visual disturbance. Respiratory: Negative for apnea, cough, chest tightness, shortness of breath, wheezing and stridor. Cardiovascular: Negative for chest pain, palpitations and leg swelling. Gastrointestinal: Negative for abdominal pain, blood in stool, constipation, diarrhea, nausea and vomiting. Endocrine: Negative for cold intolerance, heat intolerance, polydipsia and polyuria. Genitourinary: Negative for difficulty urinating, dysuria, flank pain, frequency, hematuria, urgency, vaginal bleeding and vaginal discharge. Musculoskeletal: Negative for arthralgias, back pain, gait problem, joint swelling and myalgias. Skin: Negative for color change, rash and wound. Allergic/Immunologic: Negative for environmental allergies and food allergies. Neurological: Negative for dizziness, syncope, facial asymmetry, weakness, light-headedness, numbness and headaches. Psychiatric/Behavioral : Positive for hallucinations, sleep disturbance and suicidal ideas. Negative for behavioral problems, confusion, decreased concentration, dysphoric mood and self-injury. The patient is not nervous/anxious and is not hyperactive. Physical Exam BP 172/99 Pulse 76 Temp (Src) 98.1 (Oral) Resp 18 Ht 5' 6 (1.68m) Wt 320 lb (145.2kg) SpO2 98% BMI 51.67 kg/(m2). O2 Therapy: Room Air Physical Exam Constitutional: She is oriented to person, place, and time. She appears well-developed and well-nourished. No distress. Well, nontoxic-appearing female lying comfortably in bed in no acute distress HENT: Head: Normocephalic and atraumatic. Mouth/Throat: Oropharynx is clear and moist. Eyes: Pupils are equal, round, and reactive to light. Conjunctivae and EOM are normal. Right eye exhibits no discharge. Left eye exhibits no discharge. Neck: Normal range of motion. Neck supple. No JVD present. No tracheal deviation present. No thyromegaly present. Cardiovascular: Normal rate, regular rhythm, normal heart sounds and intact distal pulses. Exam reveals no gallop and no friction rub. No murmur heard. Pulmonary/Chest: Effort normal and breath sounds normal. No respiratory distress. She has no wheezes. She has no rales. She exhibits no tenderness. Abdominal: Soft. Bowel sounds are normal. She exhibits no distension. There is no tenderness. There is no rebound and no guarding. Musculoskeletal: Normal range of motion. She exhibits no edema, tenderness or deformity. Lymphadenopathy: She has no cervical adenopathy. Neurological: She is alert and oriented to person, place, and time. No cranial nerve deficit. Skin: Skin is warm and dry. No rash noted. She is not diaphoretic. No erythema. Psychiatric: Her behavior is normal. Her mood appears anxious. Her affect is not angry, not blunt, not labile and not inappropriate. Her speech is not rapid and/or pressured, not delayed and not slurred. She is not agitated, not aggressive, not slowed, not withdrawn, not actively hallucinating and not combative. Thought content is not paranoid and not delusional. Cognition and memory are not impaired. She does not express impulsivity or inappropriate judgment. She exhibits a depressed mood. She expresses suicidal ideation. She expresses no homicidal ideation. She expresses no suicidal plans and no homicidal plans. She exhibits normal recent memory and normal remote memory. She is attentive. Nursing note and vitals reviewed. Diagnostic Testing ED Labs Ordered and Reviewed CBC + AUTO DIFF (AK,AV,EU,FV,HL,ROBYN,MM, SP) - Abnormal; Notable for the following components: Result Value Ref Range WBC 10.57 (*) 3.98 - 10.04 thou/cmm RBC 5.55 (*) 3.93 - 5.22 mil/cmm HGB 16.3 (*) 11.2 - 15.7 g/dL Hematocrit 49.7 (*) 34.1 - 44.9 % Immature Grans # 0.06 (*) 0.00 - 0.05 thou/cmm Abs. Lymph 3.85 (*) 1.18 - 3.74 thou/cmm All other components within normal limits COMPREHENSIVE METABOLIC PANEL (AK,AV,EU,FV,HL,ROBYN,MM, SP) - Abnormal; Notable for the following components: Protein, Total 8.3 (*) 6.4 - 8.2 g/dL All other components within normal limits URINALYSIS WITH MICROSCOPIC (AK,AV,EU,FV,HL,ROBYN,MM, SP) CK CREATINE KINASE (AK,AV,EU,FV,HL,ROBYN,MM, SP) URINE DRUG SCREEN (AK,AV,EU,FV,HL,ROBYN,MM, SP) ALCOHOL / ETHANOL BLOOD (AK,AV,EU,FV,HL,ROBYN,MM, SP) MDRD GFR HCG URINE - ED(POC) LITHIUM BLOOD (AK,AV,EU,FV,HL,ROBYN,MM, SP) TSH BLOOD (AK,AV,EU,FV,HL,ROBYN,MM, SP) Procedures ED Course / Clinical Impression Clinical Impressions as of Sep 08 655 Suicidal ideation MDM / Disposition / Plan 27-year-old female with past medical history of obesity, THC use, bipolar disorder, ADD, and anxiety presents to the ED with chief complaint of suicidal ideation. Patient recently stopped taking her lithium, Zoloft, and Adderall. Pt is afebrile and hemodynamically stable. Physical exam as detailed above. Psychiatric clearance labs were obtained. Mild nonspecific leukocytosis on CBC. No concerning metabolic/electrolyte abnormalities on CMP. UA without signs of infection. CK within normal limits. Urine drug screen positive for THC. Serum alcohol level less than 3. Schwana <0.2. TSH within normal limits. EKG without signs of ischemia or arrhythmia. Patient cleared from a medical standpoint. At this time, we feel the patient is a danger to herself if she were to be discharged. Patient pink slipped that she is suicidal and has been off her meds. Plan is for admission for further psychiatric evaluation and readjustment of her medications. Patient signed out and care transferred to Darlin Esteban PA-C at approximately 1900. Psychiatry paged, awaiting call back with plan for dispo. SIGNATURE: ERIK Ayala Pa-C, PA 09/05/181944 Attending Note I have personally performed a face to face assessment of the patient and have reviewed the NETTIE/QUARRYING MANAGER note. I am in agreement with NETTIE's assessment and finding. Signature: Irasema Johnson MD Date: 09/07/2018 Time: 6:56 AM Irasema Johnson MD 09/07/18 0657 Normal [facility] ED Triage Noteon 09-05-2018 ED Triage Note HNO ID: [id number] Author: NETTIE Heredia (Pa) Service: Emergency Medicine Author Type: Physician Steward/Stewardess Second Type: ED Triage Notes Filed: 09/05/2018 2:11 PM Note Text: ED INTAKE NOTE Patient Name: Jennifer Mahmood Service Date: 09/05/18 BRIEF HPI: 27-year-old female presents the ED for suicidal ideation. Patient states that she wants to slit her throat. She states that she has been on lithium Zoloft and Adderall but stopped them about because about a week and half ago. Denies any hallucinations or HI. BRIEF EXAM: Pupils are round, reactive and equal bilaterally Heart rate is regular Lungs wheezing bilaterally. Abdomen is soft and non tender INTAKE WORKUP: Psychiatric clearance labs. Plan deferred. SIGNATURE: Dharmesh Cristobal PA-C Normal [facility] Hemogram/Diffon 09-05-2018 Abs Immature Grans 0.06 thou/cmm High 0.00-0.05 [facility] Comment on above: Performed By: #### C BCD1 #### [place] [address] Abs. Baso 0.05 thou/cmm Normal 0.01-0.08 [facility] Comment on above: Result Comment: Smea r scanned; tech agrees with automated differential Performed By: #### C BCD1 #### [place] [address] Abs. [place] 0.63 thou/cmm Normal 0.27-0.70 [facility] Comment on above: Performed By: #### C BCD1 #### [place] [address] Abs. Neut (ANC) 5.71 thou/cmm Normal 1.56-6.13 [facility] Comment on above: Performed By: #### C BCD1 #### [address], [place] [address] Basophils/100 WBC (Bld) 0.5 % Normal [facility] Comment on above: Performed By: #### C BCD1 #### [facility] [address] [place], [place] [address] Eosinophils #/vol (Bld) 0.26 thou/cmm Normal 0.00-0.31 [facility] Comment on above: Performed By: #### C BCD1 #### [facility] [address] [place], [place] [address] Eosinophils/100 WBC (Bld) 2.5 % Normal [facility] Comment on above: Performed By: #### C BCD1 #### [facility] [address] [place], [place] [address] Immature Grans 0.60 % Normal [facility] Comment on above: Performed By: #### C BCD1 #### [facility] [address] [place], [place] [address] Lymphocytes #/vol (Bld) 3.85 thou/cmm High 1.18-3.74 [facility] Comment on above: Performed By: #### C BCD1 #### [facility] [address] [place], [place] [address] Lymphocytes/100 WBC (Bld) 36.4 % Normal [facility] Comment on above: Performed By: #### C BCD1 #### [facility] [address] [place], [place] [address] Monocytes/100 WBC (Bld) 6.0 % Normal [facility] Comment on above: Performed By: #### C BCD1 #### [facility] [address] [place], [place] [address] Seg Neutrophil 54.0 % Normal [facility] Comment on above: Performed By: #### C BCD1 #### [facility] [address] [place], [place] [address] Erythrocyte distribution width Ratio (RBC) 12.4 % Normal 11.7-14.4 [facility] Comment on above: Performed By: #### C BCD1 #### [facility] [address] [place], [place] [facility] Hematocrit Volume Fraction (Bld) 49.7 % High 34.1-44.9 [facility] Comment on above: Performed By: #### C BCD1 #### [facility] [address] [place] [address] Hemoglobin mass conc (Bld) 16.3 g/dL High 11.2-15.7 [facility] Comment on above: Performed By: #### C BCD1 #### [facility] [address] [place] [address] MCH Entitic mass (RBC) 29.4 pg Normal 25.6-32.2 [facility] Comment on above: Performed By: #### C BCD1 #### [facility] [address] [place] [address] MCHC mass conc (RBC) 32.8 % Normal 31.6-34.8 [facility] Comment on above: Performed By: #### C BCD1 #### [facility] [address] [place] [address] MCV Entitic volume (RBC) 89.5 fL Normal 79.4-94.8 [facility] Comment on above: Performed By: #### C BCD1 #### [facility] [address] [place] [address] Platelet mean volume Entitic volume (Bld) 9.8 fL Normal 9.4-12.3 [facility] Comment on above: Performed By: #### C BCD1 #### [facility] [address] [place] [address] Platelets #/vol (Bld) 298 thou/cmm Normal 182-369 [facility] Comment on above: Performed By: #### C BCD1 #### [facility] [address] [place] [address] RBC #/vol (Bld) 5.55 mil/cmm High 3.93-5.22 [facility] Comment on above: Performed By: #### C BCD1 #### [facility] [address] [place] [address] RDW SD 41.0 fl Normal 36.4-46.3 [facility] Comment on above: Performed By: #### C BCD1 #### [facility] [address] [place] [address] WBC #/vol (Bld) 10.57 thou/cmm High 3.98-10.04 [facility] Comment on above: Performed By: #### C BCD1 #### [facility] [address] [place] [address] Schwana Serumon 09-05-2018 Schwana Serum < 0.2 Low 0.6-1.2 [facility] Comment on above: Performed By: #### L ITH #### [place] [address] MDRD GFRon 09-05-2018 GFR/1.73 sq M predicted among non-blacks MDRD vol rate/area (S/P/Bld) mL/min/{1.73_m2} Normal >60mL/min/1.73 m2 [facility] Comment on above: Result Comment: If t he patient is , multiply the result by 1.210. Performed By: #### G FR #### [facility] [address] [place] [address] TSH, 3rd generationon 2018 TSH, 3rd generation 1.210 uIU/mL Normal 0.358-3.740 [facility] Comment on above: Performed By: #### T SH3 #### [place] [address] Urinalysis Routineon 019 Bacteria LM.HPF #/area (Urine sed) NONE Normal None [facility] Comment on above: Performed By: #### U RIN2 #### [facility] [address] [place] [address] Ep Cells Urine 4.2 /hpf Normal 0.0-5.0 [facility] Comment on above: Performed By: #### U RIN2 #### [facility] [address] [place] [address] Hyaline Cast 0.0 /lpf Normal 0.0-1.0 [facility] Comment on above: Performed By: #### U RIN2 #### [facility] [address] [place] [address] RBC,Urine 2.4 /hpf Normal 0.0-5.0 [facility] Comment on above: Performed By: #### U RIN2 #### [facility] [address] [place] [address] WBC, Urine 0.5 /hpf Normal 0.0-5.0 [facility] Comment on above: Performed By: #### U RIN2 #### [facility] [address] [place] [address] Appearance Nom (U) CLEAR Normal [facility] Comment on above: Performed By: #### U RIN2 #### [facility] [address] [place] [address] Bilirubin Urine Negative Normal Negative [facility] Comment on above: Performed By: #### U RIN2 #### [facility] [address] [place] [address] Color Nom (U) YELLOW Normal [facility] Comment on above: Performed By: #### U RIN2 #### [facility] [address] [place] [address] Glucose Ql (U) Negative Normal Negative [facility] Comment on above: Performed By: #### U RIN2 #### [facility] [address] [place] [address] Hemoglobin,Urine Negative Normal Negative [facility] Comment on above: Performed By: #### U RIN2 #### [facility] [address] [place] [address] Ketone Urine Negative Normal Negative [facility] Comment on above: Performed By: #### U RIN2 #### [facility] [address] [place] [address] Leukocytes Esterase Negative Normal Negative [facility] Comment on above: Performed By: #### U RIN2 #### [facility] [address] [place] [address] Nitrites Urine Negative Normal Negative [facility] Comment on above: Performed By: #### U RIN2 #### [facility] [address] [place] [address] pH (U) 6.5 [pH] Normal 5.0-8.0 [facility] Comment on above: Performed By: #### U RIN2 #### [facility] [address] [place], [place] [address] Protein mass conc (U) Negative Normal Negative [facility] Comment on above: Performed By: #### U RIN2 #### [facility] [address] [place], [place] [address] Specific [place], Ur 1.023 Normal 1.005-1.030 [facility] Comment on above: Performed By: #### U RIN2 #### [facility] [address] [place], [place] [address] Urobilinogen,Ur 1.0 EU/dL Normal 0.0-1.0 [facility] Comment on above: Performed By: #### U RIN2 #### [facility] [address] [place] [address] Urine Drug Screenon 09-06-19 Urine Amphetamine Non-detected Normal Non-Detected [facility] Comment on above: Performed By: #### U DRG2 #### [facility] [address] [place], [place] [address] Urine Barbiturates Non-detected Normal Non-Detected [facility] Comment on above: Performed By: #### U DRG2 #### [facility] [address] [place], [place] [address] Urine Benzodiazepine Non-detected Normal Non-Detected [facility] Comment on above: Performed By: #### U DRG2 #### [facility] [address] [place], [place] [address] Urine Cocaine Metab Non-detected Normal Non-Detected [facility] Comment on above: Performed By: #### U DRG2 #### [facility] [address] [place], [place] [address] Urine Opiate Non-detected Normal Non-Detected [facility] Comment on above: Performed By: #### U DRG2 #### [facility] [address] [place], [place] [address] Urine PCP Non-detected Normal Non-Detected [facility] Comment on above: Performed By: #### U DRG2 #### [facility] [address] [place], [place] [address] Urine THC see below Normal Non-Detected [facility] Comment on above: Result Comment: Dete cted (unconfirmed) Urine Drug Cutoff Levels Urine Amphetamine 500 ng/mL Urine Barbiturate 200 ng/mL Urine Benzodiazepines 200 ng/mL Urine Cocaine 150 ng/mL Urine Phencyclidine (PCP) 25 ng/mL Urine Opiates 300 ng/mL Urine THC 50 ng/mL The results of these analytes are unconfirmed and reported qualitatively as detected or non-detected relative to the cutoff value. Detected results indicate the sample is likely to contain the analyte. Non-detected results indicate that either the sample does not contain the analyte or it is present in concentrations below the cutoff level. This drug screen should be used for medical diagnostic purposes only. Performed By: #### U DRG2 #### [address] [address] Urine HCG, Qual.on 9 HCG.beta subunit ( test) Ql (U) Negative Normal Negative [facility] Comment on above: Performed By: #### H CGUR #### [address] [address] Specific [place], Ur 1.024 Normal 1.005-1.030 [facility] Comment on above: Performed By: #### H CGUR #### [address] [address] Creatinineon 08-10-2018 Creatinine mass conc 0.83 mg/dL Normal 0.58-0.96 [facility] Comment on above: Performed By: #### L I, CRET1, TSH #### [facility] Routine Lab [address] [place] [address] Creatinine mass conc mg/dL Normal [facility] Comment on above: Performed By: #### L I, CRET1, TSH #### [facility] Routine Lab [address] [place] [id number] Lithiumon 08-10-2018 Schwana molar conc 0.2 mmol/L Low 0.6-1.2 [facility] Comment on above: Performed By: #### L I, CRET1, TSH #### [facility] Routine Lab [address] [place], [place] [address] TSHon 08-10-2018 Thyrotropin Qn 1.320 uU/mL Normal 0.400-5.500 [facility] Comment on above: Performed By: #### L I, CRET1, TSH #### [facility] Routine Lab [address] [place], [place] [address] Vital Signs Date Time Vital Sign Value Performing Clinician Faci lity 09-12-2024 15:37-0400 Body mass index (BMI) [Ratio] 56.61 kg/m2 Lázaro Dickey MD Work Phone: [facility] 09-12-2024 15:37-0400 Body temperature 98.1 [degF] Lázaro Dickey MD Work Phone: [facility] 09-12-2024 15:37-0400 Body weight 159.1 kg Lázaro Dickey MD Work Phone: [facility] 09-12-2024 15:37-0400 Diastolic blood pressure 102 mm[Hg] Lázaro Dickey MD Work Phone: [facility] 09-12-2024 15:37-0400 Heart rate 64 /min Lázaro Dickey MD Work Phone: [facility] 09-12-2024 15:37-0400 Respiratory rate 20 /min Lázaro Dickey MD Work Phone: [facility] 09-12-2024 15:37-0400 SaO2% (BldA) [Mass fraction] 98 % Lázaro Dickey MD Work Phone: [facility] 09-12-2024 15:37-0400 Systolic blood pressure 195 mm[Hg] Lázaro Dickey MD Work Phone: [facility] 03-29-2024 13:50-0400 Diastolic blood pressure 90 mm[Hg] Jenna Swan APRN.CNP Work Phone: [facility] 03-29-2024 13:50-0400 Respiratory rate 20 /min Jenna Swan APRN.MANAGER SOURCING Work Phone: [facility] 03-29-2024 13:50-0400 Systolic blood pressure 160 mm[Hg] Jenna Swan APRN.MANAGER SOURCING Work Phone: [facility] 03-29-2024 13:27-0400 Body mass index (BMI) [Ratio] 54.87 kg/m2 Jenna Swan APRN.MANAGER SOURCING Work Phone: [facility] 03-29-2024 13:27-0400 Body temperature 98.4 [degF] Jenna Swan APRN.MANAGER SOURCING Work Phone: [facility] 03-29-2024 13:27-0400 Body weight 154.2 kg Jenna Swan APRN.MANAGER SOURCING Work Phone: [facility] 03-29-2024 13:27-0400 Heart rate 71 /min Jenna Swan APRN.MANAGER SOURCING Work Phone: [facility] 03-29-2024 13:27-0400 SaO2% (BldA) [Mass fraction] 97 % Jenna Swan APRN.MANAGER SOURCING Work Phone: [facility] 02-10-2023 14:34-0400 Body temperature 98.71 [degF] Nieves Conner APRN.MANAGER SOURCING Work Phone: [facility] 02-10-2023 14:34-0400 Body weight 157.31 kg Nieves Conner APRN.MANAGER SOURCING Work Phone: [facility] 02-10-2023 14:34-0400 Diastolic blood pressure 82 mm[Hg] Nieves Conner APRN.MANAGER SOURCING Work Phone: [facility] 02-10-2023 14:34-0400 Heart rate 90 /min Nieves Conner APRN.MANAGER SOURCING Work Phone: [facility] 02-10-2023 14:34-0400 Respiratory rate 21 /min Nieves Conner APRN.MANAGER SOURCING Work Phone: [facility] 02-10-2023 14:34-0400 SaO2% (BldA) [Mass fraction] 98 % Nieves Conner APRN.MANAGER SOURCING Work Phone: [facility] 02-10-2023 14:34-0400 Systolic blood pressure 128 mm[Hg] Nieves Conner APRN.MANAGER SOURCING Work Phone: [facility] Encounters Encounter Date Encounter Type Care Provider Facility Start: 09-12-2024 End: 09-12-2024 ambulatory ENE CHIRINOSEY Facility:[facility] Start: 09-12-2024 End: 09-12-2024 Patient encounter procedure Lázaro Dickey MD Work Phone: [facility] Comment on above: Toothache (Primary D x) Start: 04-12-2024 End: 04-12-2024 Telephone encounter Ene Phillips MD Work Phone: [facility] Start: 03-29-2024 End: 03-29-2024 ambulatory ENE PHILLIPS Facility:[facility] Start: 03-29-2024 End: 03-29-2024 Patient encounter procedure Jenna Swan APRN.MANAGER SOURCING Work Phone: [facility] Comment on above: Bacterial sinusitis (Primary Dx); Acute cough; Encounter for smoking cessation counseling; Elevated blood pressure reading without diagnosis of hypertension Start: 02-10-2023 End: 02-10-2023 Patient encounter procedure Nieves Conner APRN.MANAGER SOURCING Work Phone: [facility] Comment on above: Sore throat (Primary Dx) Start: 01-13-2023 Chart abstracting Ene asencio MD Work Phone: [facility] Comment on above: ER Discharge Summary Start: 01-13-2023 End: 01-13-2023 Emergency department patient visit Markell Jacques Facility:[facility] Start: 01-13-2023 End: 01-13-2023 Emergency department patient visit [facility] Work Phone: Start: 12-14-2021 Refluiza Hsu Work Phone: [facility] Comment on above: Refill Request Start: 09-05-2018 End: 09-08-2018 Evaluation and management of inpatient KATY GALLOWAY [facility] Procedures Date Procedure Procedure Detail Performing Clinician Start: 02-10-2023 STREP Belinda MOLECULAR (POC) Nieves Conner APRN.MANAGER SOURCING Work Phone: Start: 09-05-2018 Electrocardiogram AI GALLOWAY Start: 11-24-2017 Adult depression scr eening assessment Chepe Fine MD Work Phone: Plan of Treatment Date Care Activity Detail Author Start: 10-16-2027 Urine microalbumin profile [facility] Start: 04-13-2024 End: 04-13-2024 Patient encounter procedure 04/13/2024 2:20 PM EDT Office Visit [facility] [address] [place] [address] Ene Phillips MD [address] [place] [address] ec follow up [facility] Comment on above: ec follow up Start: 02-19-2024 Covid-19 Vaccine ( season) Covid-19 Vaccine ( season) [facility] Start: 02-19-2024 Influenza vaccination Influenza Vacc ine (#1) [facility] Start: 02-18-2023 Influenza vaccination INFLUENZA (#1) [facility] Start: 2022 HPV TESTING HPV TESTING [facility] Start: 09-01-2022 PAP TESTING PAP TESTING [facility] Start: 06-20-2022 DEPRESSION ASSESSMENT DEPRESSION ASS ESSMENT [facility] Start: 02-18-2022 Influenza vaccination INFLUENZ A (Season Ended) [facility] Start: 09-01-2020 PAP TESTING PAP TESTING [facility] Start: 09-01-2020 Screening for malign ant neoplasm of cervix Cervical Cancer Screening [facility] Start: 11-24-2018 Adult depression screening assessment DEPRESSION SCREENING [facility] Start: 09-29-2017 HPV VACCINE (2 - 3-d ose series) HPV VACCINE (2 - 3-dose series) [facility] Start: 05-24-2016 Hepatitis B Vaccine (3 of 3 - 3-dose series) Hepatitis B Vaccine (3 of 3 - 3-dose series) [facility] Start: 12-24-2011 Pneumococcal vaccination Pneum ococcal Vaccine (1 of 2 - PCV) [facility] Start: 2010 Anxiety Screening Anxiety Screening [facility] Start: 2010 Depression Screening Depression Scre ening [facility] Start: 1998 PNEUMOCOCCAL (1 - PCV) PNEUMOCOCCAL (1 - PCV) [facility] Start: 1998 Pneumococcal vaccination Pneum ococcal Vaccine (1 of 2 - PCV) [facility] Start: 1997 COVID-19 VACCINE (#1) COVID-19 VACCI NE (#1) [facility] Start: 06-25-1993 COVID-19 VACCINE (#1) COVID-19 VACCI NE (#1) [facility] Start: 06-25-1993 HEPATITIS B (3 of 3 - 3-dose series) HEPATITIS B (3 of 3 - 3-dose series) [facility] Patient Education Abscess Drainage [facility] Work Phone: Patient referral [facility] Work Phone: Immunizations Immunization Date Immunization Notes [facility] Provider [facility]2017 tetanus toxoid, redu esdras diphtheria toxoid, and acellular pertussis vaccine, adsorbed Chepe Fine MD Work Phone: [facility] Work Phone: 08-07-2017 tetanus toxoid, redu sedras diphtheria toxoid, and acellular pertussis vaccine, adsorbed Chepe Fine MD Work Phone: [facility] Work Phone: 03-29-2016 hepatitis B vaccine, pediatric or pediatric/adolescent dosage [facility] 03-15-2016 influenza, seasonal, injectable [facility] 03-15-2016 tetanus toxoid, redu esdras diphtheria toxoid, and acellular pertussis vaccine, adsorbed [facility] 03-15-2016 influenza virus vaccine, unspecified formulation Jenna Swan APRN.MANAGER SOURCING Work Phone: [facility] 06-10-2015 influenza, injectabl e, quadrivalent, contains preservative Chepe Fine MD Work Phone: [facility] Work Phone: 04-24-2014 influenza, seasonal, injectable Chepe Fine MD Work Phone: [facility] 04-24-2014 tetanus toxoid, redu esdras diphtheria toxoid, and acellular pertussis vaccine, adsorbed Chepe Fine MD Work Phone: [facility] 02-07-1998 diphtheria, tetanus toxoids and acellular pertussis vaccine Chepe Fine MD Work Phone: [facility] Work Phone: 02-07-1998 measles, mumps and rubella virus vaccine Chepe Fine MD Work Phone: [facility] Work Phone: 07-21-1994 diphtheria, tetanus toxoids and acellular pertussis vaccine Chepe Fine MD Work Phone: [facility] Work Phone: 07-21-1994 haemophilus influenz ae type b vaccine, HbOC conjugate Chepe Fine MD Work Phone: [facility] Work Phone: 07-21-1994 measles, mumps and rubella virus vaccine Chepe Fine MD Work Phone: [facility] Work Phone: 07-21-1994 trivalent poliovirus vaccine, live, oral Chepe Fine MD Work Phone: [facility] Work Phone: 07-10-1993 diphtheria, tetanus toxoids and acellular pertussis vaccine Chepe Fine MD Work Phone: [facility] Work Phone: 07-10-1993 haemophilus influenz ae type b vaccine, HbOC conjugate Chepe Fine MD Work Phone: [facility] Work Phone: 07-10-1993 trivalent poliovirus vaccine, live, oral Chepe Fine MD Work Phone: [facility] Work Phone: 04-25-1993 diphtheria, tetanus toxoids and acellular pertussis vaccine Chepe Fine MD Work Phone: [facility] Work Phone: 04-25-1993 haemophilus influenz ae type b vaccine, HbOC conjugate Chepe Fine MD Work Phone: [facility] Work Phone: 04-25-1993 hepatitis B vaccine, pediatric or pediatric/adolescent dosage Chepe Fine MD Work Phone: [facility] Work Phone: 04-25-1993 trivalent poliovirus vaccine, live, oral Chepe Fine MD Work Phone: [facility] Work Phone: 04-25-1993 hepatitis B vaccine, unspecified formulation Ene Phillips MD Work Phone: [facility] 02-17-1993 diphtheria, tetanus toxoids and acellular pertussis vaccine Chepe Fine MD Work Phone: [facility] Work Phone: 02-17-1993 haemophilus influenz ae type b vaccine, HbOC conjugate Chepe Fine MD Work Phone: [facility] Work Phone: 02-17-1993 trivalent poliovirus vaccine, live, oral Chepe Fine MD Work Phone: [facility] Work Phone: 01-07-1993 hepatitis B vaccine, pediatric or pediatric/adolescent dosage Chepe Fine MD Work Phone: [facility] Work Phone: Payers Date Payer Category Payer Self-pay [id number] [phone] [id number] 2023 Unknown [id number] 2022 Unknown [employer] CARD PPO OOS [id number] 2022-Present [phone] [id number] [place] [address] PPO [id number] Unknown [facility] [id number] Unknown [id number] Social History Date Type Detail Facility Start: 10-10-2010 End: 03-29-2024 Tobacco smoking status COIS Smokes tobacco daily [facility] Start: 10-10-2010 End: 05-28-2020 Cigarettes smoked current (pack per day) - Reported 0.5 [facility] Start: 10-10-2010 End: 03-29-2024 Tobacco use and exposure Smokeless tobacco non-user [facility] Start: 08-19-2021 End: 09-12-2024 Alcohol intake Current non-drinker of alcohol (finding) [facility] Start: 1990 Sex Assigned At Female [facility] Start: 08-22-2021 Tobacco smoking stat us COIS Unknown if ever smoked [facility] Start: 06-06-2019 With Family [facility] History of tobacco use Cigarette Smoker [facility] Start: 05-28-2020 End: 08-19-2021 Tobacco use panel [facility] PHQ2 Score 6 [place] Start: 2020 Gender identity Identifies as female gender (finding) [facility] Functional Status Date Assessment Result Facility 09-08-2018 Are you deaf, or do you have serious difficulty hearing No 09/08/2018 11:49 AM Ivette Gonzalez RN No [facility] 09-08-2018 Are you blind, or do you have serious difficulty seeing, even when wearing glasses No 09/08/2018 11:49 AM Ivette Gonzalez RN No [facility] 09-08-2018 Do you have serious difficulty walking or climbing stairs No 09/08/2018 11:49 AM Ivette Gonzalez RN No [facility] 09-08-2018 Do you have difficul ty dressing or bathing No 09/08/2018 11:49 AM Ivette Gonzalez RN No [facility] 09-08-2018 Because of a physica l, mental, or emotional condition, do you have difficulty doing errands alone such as visiting a physician's office or shopping No 09/08/2018 11:49 AM EDT Ivette Mo RN No [facility] Mental Status Date Assessment Result Facility 09-08-2018 Because of a physica l, mental, or emotional condition, do you have serious difficulty concentrating, remembering, or making decisions No 09/08/2018 11:49 AM EDT Ivette Mo RN No [facility] Clinical Notes 12-14-2021 to 09-12-2024 Lázaro Dickey MD - 09/12/2024 3:53 PM EDTTelephone Encounter - Ginny Weber LPN - 04/12/2024 12:47 PM EDTTelephone Encounter - Ginny Weber LPN - 04/12/2024 12:47 PM EDT Note Date & Type Note Facility 09-12-2024 Note HNO ID: [id number] Author: LÁZARO DICKEY MD Service: ? Author Type: Physician Type: Progress Notes Filed: 09/12/2024 16:05 Note Text: [facility] Subjective Jennifer Berry is a 33 year old female. Patient presents with: Dental Problem: L lower tooth infection x2 days Patient has had years of dental pain secondary to a cracked left lower molar. She has a significant improvement in pain the last 2 days. She feels her jaw is swollen and pain radiates into her left ear. Pain is intense enough to induce vomiting. She has been taking Tylenol and using saline rinse for treatment. Denies any fever or drainage. Dental Problem Review of Systems Objective BP 195/102 Pulse 64 Temp 36.7 ?C (98.1 ?F) Resp 20 Wt (!) 159.1 kg (350 lb 12 oz) LMP 01/13/2021 SpO2 98% BMI 56.61 kg/m? Physical Exam Constitutional: General: She is in acute distress (somewhat uncomfortable). HENT: Right Ear: Tympanic membrane and ear canal normal. Left Ear: Tympanic membrane and ear canal normal. Nose: No congestion. Right Sinus: No maxillary sinus tenderness or frontal sinus tenderness. Left Sinus: No maxillary sinus tenderness or frontal sinus tenderness. Mouth/Throat: Mouth: Mucous membranes are moist. Pharynx: No oropharyngeal exudate or posterior oropharyngeal erythema. Comments: Left lower posterior/second molar has missing enamel at the outer gumline. No obvious erythema or edema. Tooth is nontender to palpation. Tender swelling along the mandible inferior to the painful cracked tooth. Eyes: Extraocular Movements: Extraocular movements intact. Conjunctiva/sclera: Conjunctivae normal. Pupils: Pupils are equal, round, and reactive to light. Cardiovascular: Rate and Rhythm: Normal rate and regular rhythm. Heart sounds: No murmur heard. Pulmonary: Effort: No respiratory distress. Breath sounds: No wheezing, rhonchi or rales. Musculoskeletal: Cervical back: Neck supple. Lymphadenopathy: Cervical: No cervical adenopathy. Neurological: Mental Status: She is alert. {ASSESSMENT/PLAN: 1. Toothache - ICD9: 525.9, ICD10: K08.89 Pulpitis with or without dental infection of cracked left lower molar. The acute worsening associated with jaw swelling suggests infection. - AMOXICILLIN 875 MG TABLET Discussed taking Tylenol in conjunction with ibuprofen for up to 1 week. Advised against ongoing use to reduce the risk of gastritis. Follow-up with dentist recommended; she does not have dental insurance and cannot afford it. Lázaro Dickey MD Differential Diagnoses - dental infection is more likely for the following reason(s): edema Contributing Factors Social Determinants of Health significantly affecting care: financial resource strain Disposition The patient was discharged. Procedures [facility] 09-12-2024 History of Presen t illness Narrative Images from the original note were not included. [facility] Subjective Jennifer Berry is a 33 year old female. Patient presents with: Dental Problem: L lower tooth infection x2 days Patient has had years of dental pain secondary to a cracked left lower molar. She has a significant improvement in pain the last 2 days. She feels her jaw is swollen and pain radiates into her left ear. Pain is intense enough to induce vomiting. She has been taking Tylenol and using saline rinse for treatment. Denies any fever or drainage. Dental Problem Review of Systems Objective BP 195/102 Pulse 64 Temp 36.7 C (98.1 F) Resp 20 Wt (!) 159.1 kg (350 lb 12 oz) LMP 01/13/2021 SpO2 98% BMI 56.61 kg/m Physical Exam Constitutional: General: She is in acute distress (somewhat uncomfortable). HENT: Right Ear: Tympanic membrane and ear canal normal. Left Ear: Tympanic membrane and ear canal normal. Nose: No congestion. Right Sinus: No maxillary sinus tenderness or frontal sinus tenderness. Left Sinus: No maxillary sinus tenderness or frontal sinus tenderness. Mouth/Throat: Mouth: Mucous membranes are moist. Pharynx: No oropharyngeal exudate or posterior oropharyngeal erythema. Comments: Left lower posterior/second molar has missing enamel at the outer gumline. No obvious erythema or edema. Tooth is nontender to palpation. Tender swelling along the mandible inferior to the painful cracked tooth. Eyes: Extraocular Movements: Extraocular movements intact. Conjunctiva/sclera: Conjunctivae normal. Pupils: Pupils are equal, round, and reactive to light. Cardiovascular: Rate and Rhythm: Normal rate and regular rhythm. Heart sounds: No murmur heard. Pulmonary: Effort: No respiratory distress. Breath sounds: No wheezing, rhonchi or rales. Musculoskeletal: Cervical back: Neck supple. Lymphadenopathy: Cervical: No cervical adenopathy. Neurological: Mental Status: She is alert. {ASSESSMENT/PLAN: 1. Toothache - ICD9: 525.9, ICD10: K08.89 Pulpitis with or without dental infection of cracked left lower molar. The acute worsening associated with jaw swelling suggests infection. - AMOXICILLIN 875 MG TABLET Discussed taking Tylenol in conjunction with ibuprofen for up to 1 week. Advised against ongoing use to reduce the risk of gastritis. Follow-up with dentist recommended; she does not have dental insurance and cannot afford it. Lázaro Dickey MD Differential Diagnoses - dental infection is more likely for the following reason(s): edema Contributing Factors Social Determinants of Health significantly affecting care: financial resource strain Disposition The patient was discharged. Procedures documented in this encounter [facility] 04-12-2024 Telephone encount er Note Per Dr Phillips pt has not seen him since 2014. She is considered a new pt and his practice is closed. Attempted to contact pt but both contact numbers listed are not working numbers. Did send pt a msg although pt hasn't used this since 02/11/23. Appointment has been canceled. Ginny Weber LPN [facility] 04-12-2024 Miscellaneous Notes Formattin g of this note might be different from the original. Per Dr Phillips pt has not seen him since 2014. She is considered a new pt and his practice is closed. Attempted to contact pt but both contact numbers listed are not working numbers. Did send pt a msg although pt hasn't used this since 02/11/23. Appointment has been canceled. Ginny Weber LPN documented in this encounter [facility] 03-29-2024 Note HNO ID: [id number] Author: JENNA SWAN APRN.MANAGER S[employer]CING Service: ? Author Type: Nurse Practitioner Type: Progress Notes Filed: 03/29/2024 13:52 Note Text: [facility] Subjective Jennifer Berry is a 33 year old year old who presents to [facility] today with complaint of Nasal congestion, cough, sinus pressure x 2 weeks. Also agreeable to start smoking cessation today, smokes 1 ppd. Denies headaches, fever, sore throat, cough, shortness of breath, chest pains, Nausea, vomiting, changes in bowel or bladder or skin rashes. Taking OTC Cold and Flu meds Aside from symptoms as described above, patient has no other complaints at this time. HPI: see above Review of Systems Constitutional: Negative for chills, fatigue and fever. HENT: Positive for congestion, postnasal drip, rhinorrhea and sinus pressure. Negative for ear pain, sore throat and trouble swallowing. Eyes: Negative for pain, discharge, redness and itching. Respiratory: Positive for cough. Negative for chest tightness, shortness of breath and wheezing. Cardiovascular: Negative for chest pain, palpitations and leg swelling. Gastrointestinal: Positive for nausea and vomiting (mostly post-tussive vomiting). Negative for constipation and diarrhea. Genitourinary: Negative for dysuria, hematuria and urgency. Musculoskeletal: Negative for myalgias. Skin: Negative for rash. Neurological: Negative for headaches. Hematological: Negative for adenopathy. ALLERGIES Allergen Reactions Buspar [Buspirone H* Other: See Comments Dizziness Current Outpatient Medications on File Prior to Visit Medication Sig topiramate (TOPAMAX) 50 mg tablet Take 1 tablet by mouth every 12 hours. VYVANSE 40 mg capsule venlafaxine ER (EFFEXOR XR) 150 mg 24 hr capsule Take 1 Capsule By Oral Route 1 time per day with food No current facility-administered medications on file prior to visit. ACTIVE PROBLEM LIST Attention Deficit Disorder Obesity, Class Iii, Bmi 40-49.9 (Morbid Obesity) ([facility]) Oligomenorrhea PCOS (polycystic ovarian syndrome) Cannabis Use Disorder, Moderate, Dependence ([facility]) Bipolar II Disorder ([facility]) Social History Tobacco Use Smoking status: Every Day Current packs/day: 0.50 Types: Cigarettes Smokeless tobacco: Never Substance Use Topics Alcohol use: No Drug use: Yes Objective BP 156/99 Pulse 71 Temp 36.9 ?C (98.4 ?F) Resp 18 Wt (!) 154.2 kg (339 lb 15.2 oz) LMP 01/13/2021 SpO2 97% BMI 54.87 kg/m? Physical Exam Constitutional: General: She is not in acute distress. Appearance: Normal appearance. She is not ill-appearing or toxic-appearing. HENT: Head: Normocephalic and atraumatic. Right Ear: Ear canal and external ear normal. Left Ear: Ear canal and external ear normal. Nose: Congestion and rhinorrhea present. Rhinorrhea is purulent. Right Turbinates: Enlarged, swollen and pale. Left Turbinates: Enlarged, swollen and pale. Right Sinus: Maxillary sinus tenderness and frontal sinus tenderness present. Left Sinus: Maxillary sinus tenderness and frontal sinus tenderness present. Mouth/Throat: Lips: [place]. Mouth: Mucous membranes are moist. Pharynx: Oropharynx is clear. Posterior oropharyngeal erythema present. No oropharyngeal exudate. Eyes: Extraocular Movements: Extraocular movements intact. Conjunctiva/sclera: Conjunctivae normal. Pupils: Pupils are equal, round, and reactive to light. Cardiovascular: Rate and Rhythm: Normal rate and regular rhythm. Pulses: Normal pulses. Heart sounds: Normal heart sounds. Pulmonary: Effort: Pulmonary effort is normal. Breath sounds: Normal breath sounds. Abdominal: General: Bowel sounds are normal. Palpations: Abdomen is soft. Musculoskeletal: Cervical back: Normal range of motion and neck supple. Skin: General: Skin is warm. Capillary Refill: Capillary refill takes less than 2 seconds. Neurological: General: No focal deficit present. Mental Status: She is alert and oriented to person, place, and time. Assessment/Plan 1. Bacterial sinusitis - amoxicillin-clavulanate potassium (AUGMENTIN) 875-125 mg per tablet; Take 1 tablet by mouth two times a day for 7 days. Dispense: 14 tablet; Refill: 0 - sodium chloride (SALINE MIST) 0.65 % nasal spray; Use 1 [place] in the nose two times a day. Dispense: 88 mL; Refill: 2 - fluticasone (FLONASE) 50 mcg/actuation nasal spray; Use 2 Sprays in each nostril two times a day. Rinse mouth after use. Dispense: 1 Each; Refill: 2 2. Acute cough - benzonatate (TESSALON PERLES) 100 mg capsule; Take 1 capsule by mouth three times a day as needed for cough. Dispense: 40 capsule; Refill: 0 3. Encounter for smoking cessation counseling - nicotine polacrilex (NICORETTE) 4 mg gum; Take 1 Each by mouth as needed. Dispense: 190 Each; Refill: 2 Patient advised to drink fluids, get rest and take all meds as prescribed. SEE PCP in the next few weeks to recheck BP Patient gi (more content not included)... [facility] 03-29-2024 History of Presen t illness Narrative Images from the original note were not included. [facility] NOTE Subjective Jennifer Berry is a 33 year old year old who presents to [facility] today with complaint of Nasal congestion, cough, sinus pressure x 2 weeks. Also agreeable to start smoking cessation today, smokes 1 ppd. Denies headaches, fever, sore throat, cough, shortness of breath, chest pains, Nausea, vomiting, changes in bowel or bladder or skin rashes. Taking OTC Cold and Flu meds Aside from symptoms as described above, patient has no other complaints at this time. HPI: see above Review of Systems Constitutional: Negative for chills, fatigue and fever. HENT: Positive for congestion, postnasal drip, rhinorrhea and sinus pressure. Negative for ear pain, sore throat and trouble swallowing. Eyes: Negative for pain, discharge, redness and itching. Respiratory: Positive for cough. Negative for chest tightness, shortness of breath and wheezing. Cardiovascular: Negative for chest pain, palpitations and leg swelling. Gastrointestinal: Positive for nausea and vomiting (mostly post-tussive vomiting). Negative for constipation and diarrhea. Genitourinary: Negative for dysuria, hematuria and urgency. Musculoskeletal: Negative for myalgias. Skin: Negative for rash. Neurological: Negative for headaches. Hematological: Negative for adenopathy. ALLERGIES Allergen Reactions Buspar [Buspirone H* Other: See Comments Dizziness Current Outpatient Medications on File Prior to Visit Medication Sig topiramate (TOPAMAX) 50 mg tablet Take 1 tablet by mouth every 12 hours. VYVANSE 40 mg capsule venlafaxine ER (EFFEXOR XR) 150 mg 24 hr capsule Take 1 Capsule By Oral Route 1 time per day with food No current facility-administered medications on file prior to visit. ACTIVE PROBLEM LIST Attention Deficit Disorder Obesity, Class Iii, Bmi 40-49.9 (Morbid Obesity) ([facility]) Oligomenorrhea PCOS (polycystic ovarian syndrome) Cannabis Use Disorder, Moderate, Dependence ([facility]) Bipolar II Disorder ([facility]) Social History Tobacco Use Smoking status: Every Day Current packs/day: 0.50 Types: Cigarettes Smokeless tobacco: Never Substance Use Topics Alcohol use: No Drug use: Yes Objective BP 156/99 Pulse 71 Temp 36.9 C (98.4 F) Resp 18 Wt (!) 154.2 kg (339 lb 15.2 oz) LMP 01/13/2021 SpO2 97% BMI 54.87 kg/m Physical Exam Constitutional: General: She is not in acute distress. Appearance: Normal appearance. She is not ill-appearing or toxic-appearing. HENT: Head: Normocephalic and atraumatic. Right Ear: Ear canal and external ear normal. Left Ear: Ear canal and external ear normal. Nose: Congestion and rhinorrhea present. Rhinorrhea is purulent. Right Turbinates: Enlarged, swollen and pale. Left Turbinates: Enlarged, swollen and pale. Right Sinus: Maxillary sinus tenderness and frontal sinus tenderness present. Left Sinus: Maxillary sinus tenderness and frontal sinus tenderness present. Mouth/Throat: Lips: [place]. Mouth: Mucous membranes are moist. Pharynx: Oropharynx is clear. Posterior oropharyngeal erythema present. No oropharyngeal exudate. Eyes: Extraocular Movements: Extraocular movements intact. Conjunctiva/sclera: Conjunctivae normal. Pupils: Pupils are equal, round, and reactive to light. Cardiovascular: Rate and Rhythm: Normal rate and regular rhythm. Pulses: Normal pulses. Heart sounds: Normal heart sounds. Pulmonary: Effort: Pulmonary effort is normal. Breath sounds: Normal breath sounds. Abdominal: General: Bowel sounds are normal. Palpations: Abdomen is soft. Musculoskeletal: Cervical back: Normal range of motion and neck supple. Skin: General: Skin is warm. Capillary Refill: Capillary refill takes less than 2 seconds. Neurological: General: No focal deficit present. Mental Status: She is alert and oriented to person, place, and time. Assessment/Plan 1. Bacterial sinusitis - amoxicillin-clavulanate potassium (AUGMENTIN) 875-125 mg per tablet; Take 1 tablet by mouth two times a day for 7 days. Dispense: 14 tablet; Refill: 0 - sodium chloride (SALINE MIST) 0.65 % nasal spray; Use 1 [place] in the nose two times a day. Dispense: 88 mL; Refill: 2 - fluticasone (FLONASE) 50 mcg/actuation nasal spray; Use 2 Sprays in each nostril two times a day. Rinse mouth after use. Dispense: 1 Each; Refill: 2 2. Acute cough - benzonatate (TESSALON PERLES) 100 mg capsule; Take 1 capsule by mouth three times a day as needed for cough. Dispense: 40 capsule; Refill: 0 3. Encounter for smoking cessation counseling - nicotine polacrilex (NICORETTE) 4 mg gum; Take 1 Each by mouth as needed. Dispense: 190 Each; Refill: 2 Patient advised to drink fluids, get rest and take all meds as prescribed. SEE PCP in the next few weeks to recheck BP Patient given educational materials - see instructions. Discussed use, benefit, and side effects of prescribed medications. All questions answered. Patient advised to follow up with PCP in one week, or sooner if symptoms worsen or persist. If symptoms become severe- GO TO ED. Patient verbalized understanding and agreeable with treatment plan. Jenna Swan APRN MANAGER [employer] 03/29/2024 1:47 PM documented in this encounter [facility] 03-29-2024 Instructions Jenna Swan APRN.CNP - 03/29/2024 1:43 PM EDT Images from the original note were not included. SMOKING CESSATION: Your doctor advises you to stop smoking because of the bad effects it has on your health. Tobacco smoke has over 200 known poisons and smoking increases the risk of many medical problems including: Pneumonia, bronchitis, and emphysema. Cancers of the lung, lip, mouth, voice box, pancreas, and bladder. There are over 30 chemicals in tobacco smoke that cause cancer. Heart attacks, angina, stroke, and peripheral blood vessel disease. Stomach ulcers and internal bleeding. Stillbirths and smaller babies. Facial wrinkles, blindness, and increased risk for fractures. Cancer, respiratory infections, and heart disease in your spouse and children from second-hand smoke exposure and genetic damage to sperm. Even smoking lightly shortens your life expectancy by several years; a 2-pack a-day smoker loses about 8 years of his or her life. You can greatly reduce the risk of medical problems by stopping now. Within days of quitting smoking your circulation returns to normal, you lessen the risk of having a heart attack, and your lung capacity improves. It may take months to clear up your lungs. Quitting for 10 years cuts your lung cancer risk to about that of nonsmokers. It is not easy to quit smoking. Nicotine is addicting, and longtime habits are hard to change. To start with you can write down all your reasons to quit and tell your family and friends you want to quit and ask for their help. Throw your cigarettes away, chew gum or cinnamon sticks, keep your hands busy, and drink extra water or juice. Go for walks and practice deep breathing to relax. Think of all the money you are saving, from $500-1,000 a year for the average pack-a-day smoker. Nicotine gum and patches have clearly been shown to improve success at efforts to stop smoking. Zyban is an anti-depressant drug that may be prescribed to reduce nicotine withdrawal symptoms and the urge to smoke. For more information and advice on programs to stop smoking, call your doctor, the lung or heart association, or your local cancer society. You may also try the [employer] [place] phone number 5-883-H-CAN-NOW ( ) or visit them on the internet, http://[employer]/ . Adult Sinusitis Patient Education What is Sinusitis? Sinusitis [[id number]] is inflammation of the sinuses or swelling of the lining of the sinus cavity or nose. During an infection the sinuses become blocked with fluid causing swelling of the lining of the sinuses. Symptoms: (viral and bacterial infections) Stuffy nose Runny nose Postnasal drip Fever Toothache Headache Tiredness Cough Sore throat Face and head pressure and or pain Common causes: 98% of sinus infections are viral caused by viruses. Risk Factors of Sinusitis Include: Allergies, air pollution, indoor humidity and outdoor temperature changes, andstructural changes in the nose may contribute to sinus pain, pressure and congestion. When to get help? Temperature greater than 100.4 F Symptoms lasting more than 10 days or worsening symptoms greater than 7-10 days. If you do not improve or worsen after a course of antibiotics, you should be re-examined. Diagnosis and Treatment: Your healthcare provider will ask a number of questions about your symptoms and how long they have occurred. If symptoms of sinusitis persist greater than 10 days, it is possible you have a bacterial sinus infection and an antibiotic is prescribed. If it is viral, antibiotics will not help. You may be instructed to take [id number] medications for symptoms. including fever reducers acetaminophen or ibuprofen, nasal saline spray, cough and cold preparations and decongestants as prescribed by the physician, nurse practitioner or physician medical assistant cardiology. Self-Care and Prevention: Rest Fluids for hydration Good hand washing Humidifier Avoid smoking and exposure to second hand smoke Avoid sick contacts documented in this encounter [facility] 02-10-2023 History of Presen t illness Narrative CC: Patient presents with: Sore Throat: Diarrhea, stomach cramps x 1 day HPI: Jennifer Berry is a 32 year old female who presents to the office with complaint of sore throat for the past day. Symptoms are staying the same. Associated symptoms includes diarrhea and stomach cramps. Denies fever, ear pain, and vomiting . Treatments tried include nothing so far. with no relief of symptoms. Sick contacts: unknown. History of asthma, frequent episodes of bronchitis, chronic bronchitis, bronchiectasis or COPD: No Smoker: No Seasonal/environmental allergies: No The ROS is otherwise negative. The patient's pmh, medications, allergies, and past visits are reviewed. PHYSICAL EXAM: BP 128/82 Pulse 90 Temp 37.1 C (98.7 F) Resp 21 Wt (!) 157.3 kg (346 lb 12.8 oz) LMP 01/13/2021 SpO2 98% BMI 55.97 kg/m General appearance: alert, cooperative, pleasant, in no acute distress Head: Normocephalic Eyes: EOM's intact, conjunctiva pink and moist, no icterus, sclera white, non-injected Ears: Right ear: External ear/canal- Normal, TM - clear with good landmarks. Left ear: External ear/canal- Normal, TM - clear with good landmarks Oropharynx:moderate erythema, without exudates present Heart: Negative. RRR without obvious murmur, gallop, or rubs. No ectopy. Lungs: clear to auscultation, without rales or wheeze, good air exchange PAST MEDICAL HISTORY Diagnosis Date Allergic rhinitis, cause unspecified Allergic rhinitis Attention deficit disorder without mention of hyperactivity Bipolar disorder (HCC) Marijuana abuse 08/08/2017 ER Tox screen 08/07/2017 Morbid obesity (HCC) PAST SURGICAL HISTORY Procedure Laterality Date GALLBLADDER/EF 08/2013 ALLERGIES Buspar [Buspirone Hcl] MEDICATIONS VYVANSE 40 mg capsule venlafaxine ER (EFFEXOR XR) 150 mg 24 hr capsule Take 1 Capsule By Oral Route 1 time per day with food hyoscyamine sublingual (LEVSIN SL) 0.125 mg Dissolve 1 tablet under the tongue four times daily as needed (abdominal spasm). topiramate (TOPAMAX) 25 mg tablet Take 25 mg by mouth twice daily. ondansetron orally disintegrating (ZOFRAN ODT) 4 mg disintegrating tablet Take 1 tablet by mouth every 8 hours as needed. (Patient not taking: Reported on 02/10/2023) polyethylene glycol 3350 (MIRALAX, GLYCOLAX) 17 gram/dose powder Use as directed for Miralax / Gatorade Bowel Prep Kit (Patient not taking: Reported on 08/19/2021 ) Gatorade Sports Drink Use as directed for Miralax / Gatorade Bowel Prep Kit (Patient not taking: Reported on 08/19/2021 ) Bisacodyl (DULCOLAX) 5 mg tab Use as directed for Miralax / Gatorade Bowel Prep Kit (Patient not taking: Reported on 08/19/2021 ) amphetamine-dextroamphetamine XR (ADDERALL XR) 30 mg 24 hr capsule (Patient not taking: Reported on 02/10/2023) sertraline (ZOLOFT) 50 mg tablet Take 50 mg by mouth once daily. (Patient not taking: Reported on 02/10/2023) FAMILY HISTORY Problem Relation Age of Onset Cancer Mother ovarian Cancer Maternal Aunt ovarian Social History Tobacco Use Smoking status: Every Day Packs/day: .5 Types: Cigarettes Smokeless tobacco: Never Substance Use Topics Alcohol use: No Drug use: Yes ASSESSMENT/PLAN: 1. Sore throat - ICD9: 462, ICD10: J02.9 - STREP A MOLECULAR (POC) - neg To take [id number]-bewygqk medications for symptom management. Potential red flag symptoms discussed with the patient. Reviewed appropriate action plan to take if red flag symptoms occur. Patient agreeable to treatment plan. Nieves Conner APRN.MANAGER SOURCING documented in this encounter [facility] 01-13-2023 History of Presen t illness Narrative Scan on 01/13/2023 5:52 AM by Provider, ERIK Whitlock: Consultation - Emergency Medicine documented in this encounter [facility] 12-14-2021 Miscellaneous Notes Reorder request for Levsin Sl Last ordered on 02/09/21 Zofran, 4mg Last ordered on 12/24/20 KRISTIAN Distance was 02/09/21 No follow up is scheduled 1. Abdominal pain, generalized R10.84 hyoscyamine sublingual (LEVSIN SL) 0.125 mg 2. Diarrhea, unspecified type R19.7 hyoscyamine sublingual (LEVSIN SL) 0.125 mg 3. Abnormal liver function tests R94.5 HEPATIC FUNCTION PNL Suspect resolving gastroenteritis. Hodl of on EGD/colonoscopy as she is Feeling improved. Will take questran off med list as she never started it. Will get follow up LFTs. Continue prn levsin (renewed) and zofran. Follow up visit 3 months or sooner if needed. Leti Davila CMa December 14, 2021 7:28 AM documented in this encounter [facility] Discharge summary Note Date/Time January 13, 2023 5:46am [facility] Medical Records Department [address] [place] [address] Emergency Department Summary 01/13/23 MR#: [id number] Acct: [id number] Name: JENNIFER BERRY Rep #:[id number] : 1990 32 From: Markell Jacques MD PCP: Dr. Ene Phillips MD Status:REG ER Location: ED HPI History of Present Illness Informant: patient Onset/Context/Timing Onset: Days Context: Gradual Onset Timing: Continuous Current Severity: Mild Maximum Severity: Mild Narrative Narrative: 32-year-old female history of ADHD and bipolar.'s concern she has a abscess on her left lateral chest wall. Its been there about 3 days. She squeezed it and remove the little bit of blood. No pus. No fever. Denies IV drug abuse. Prior similar symptoms: Yes Recent Illness/Hospitalization: No PFSH PFSH Medical History (Updated 01/13/23 @ 05:[address] Markell Jacques MD) Depression Hormone deficiency PCOS (polycystic ovarian syndrome) Home Medications topiramate 25 mg tablet 25 mg PO BID 06/06/19 [History Last Taken Unknown] sertraline 100 mg tablet 150 mg PO DAILY 09/04/19 [History Last Taken Unknown] dextroamphetamine-amphetamine ER 30 mg 24hr capsule,extend release 30 mg PO DAILY 11/21/19 [History Last Taken Unknown] ondansetron 4 mg disintegrating tablet 4 mg PO Q8H PRN PRN Nausea #10 tabs 11/21/19 [Rx Last Taken Unknown] amoxicillin 875 mg-potassium clavulanate 125 mg tablet 1 tab PO BID 08/22/21 [History Last Taken Unknown] dexamethasone 0.75 mg tablet 2.25 mg PO DAILY 08/22/21 [History Last Taken Unknown] hydrocodone-acetaminophen 5-325mg 5mg-325mg 1 tab PO Q6H PRN pain 3 days #10 tabs 08/22/21 [Rx Last Taken Unknown] ibuprofen 600 mg tablet 600 mg PO Q6H PRN PRN Pain 08/22/21 [History Last Taken Unknown] Allergy/AdvReac Type Severity Reaction Status Date / Time buspirone [From BuSpar] Allergy Nausea Verified 08/22/21 17:13 Family History Mother Cancer cervical Aunt Cancer cervical Grandmother Cancer cervical Other Diabetes Heart disease Surgical History History of cholecystectomy Social History Smoking Status: Current every day smoker tobacco type: cigarettes alcohol intake: never substance use type: does not use caffeine: Yes what type of physical activity do you participate in: walking and bicycling frequency: 3-4 times per week seatbelt use: always do you feel safe at home: Yes additional social history: [employer] [place] Patient is 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 No recent illness. No fever. Review of Systems ROS Unobtainable: Denies due to encephalopathy Constitutional Constitutional ED: Denies chills or fever(s) Eyes Eyes: Denies blurry vision ENT ENT ED: Denies ear pain Cardiovascular Cardiovascular: Denies chest pain Respiratory/Chest Respiratory/Chest: Denies cough Gastrointestinal Gastrointestinal: Denies abdominal pain Genitourinary Genitourinary ED: Denies dysuria or hematuria Musculoskeletal Musculoskeletal: Denies arthralgias Integumentary Reports abscess Neurologic Neurologic: Denies headache(s) Psychiatric Psychiatric: Denies anxiety Endocrine Endocrinology: Denies cold intolerance Hematologic/Lymphatic Hematologic/Lymphatic: Reports none Allergic/Immunologic Allergic/Immunologic ED: Denies mouth swelling or tongue swelling EXAM Physical Exam Narrative Exam Narrative: Well-appearing 32-year-old female. Vital signs stable afebrile. She does not look septic or toxic. No distress. HEENT exam unremarkable. Lungs clear. Heart regular rhythm no murmur. Abdomen soft nontender. Moving all 4 extremities. Left lateral rib cage chest wall there is about a dime to quarter size area that looks like possibly early abscess. There is no fluctuance there is minimal redness. There does appear to be firm, indurated infected tissue below it. Neurologically she is awake and alert with no focal motor deficits. Const Positive well nourished and well developed; Negative for cachectic, contracturesor unkempt General Appearance ED: well developed and NAD; Negative for unkempt, cachectic, contractures, cyanotic, diaphoretic or pallor Nutritional Appearance: Negative for cachectic HEENT Reports moist mucous membranes; Denies dry mucous membranes Negative for trauma or tenderness Mouth ED: No dry mucous membranes Mouth: No dry mucous membranes Eyes PERRL and EOMs intact bilaterally General Eye ED: Negative for pale conjunctiva, scleral icterus or other Neck no lymphadenopathy, supple and no JVD General: Negative for tenderness Lymph Lymphatic: Negative for other Chest Wall palpation of chest normal; Negative for inspection of chest normal Chest Narrative: Left lateral chest wall abscess. No fluctuance. Minimal redness. Firm indurated tissue. Resp normal respiratory effort and clear to auscultation bilaterally Effort and Inspection: Negative for retractions Auscultation: Negative for rales, rhonchi or wheezes Cardio regular rate, regular rhythm, S1 normal heart sound, S2 normal heart sound and no murmurs GI non-tender, non-distended and no masses Inspection: Negative for abdominal distention Auscultation: normoactive bowel sounds Palpation: soft; Negative for tender or guarding Back/Spine no CVA tenderness General Back: Negative for CVA tenderness Cervical Spine: Negative for cervical spine tenderness Thoracic Spine / Upper Back: Negative for thoracic spinal tenderness Extremity normal to inspection General Extremety ED: Negative for edema or tenderness General Extremity: Negative for edema Neuro oriented x3 and CN's II-XII intact bilaterally Sensorium / Orientation: alert; Negative for orientation impaired, lethargic or stuporous Motor Exam: strength 5/5 throughout Psych mental status grossly normal Appearance: Negative for unkempt Attitude: No agitated Mood & Affect: Negative for depressed, anxious or tearful Skin no rashes or lesions noted and no wounds Skin Narrative: Left lateral rib cage early abscess. No fluctuance. Mild redness. No pus. General Skin Exam: elasticity normal; Negative for jaundice or pallor Lesions: No lesion noted Rashes: No rashes noted Trauma: Negative for abrasion Wounds: Negative for wounds noted MDM MDM MDM Narrative Medical decision making narrative: 32-year-old with possible early abscess left lateral chest wall. She and I discussed treatment options. She wanted me to try to incise and drain it. I explained to her that I was glad to do that but we may not get any pus. Area was cleaned with iodine. Local anesthetized with Xylocaine. Made a 1 cm horizontal incision. Probed the wound. There was no pus and minimal blood. I think this is infected tissue but not a walled off abscess. She tolerated it well. It was packed with gauze. She was instructed on wound care. Will be placed on Keflex 4 times a day for 10 days. Motrin and Tylenol for pain. Return if worse. Follow-up to ensure its improving. History & Record Review Discussion w/independent historian: Patient Procedures Other Procedures Procedure(s): Left chest wall early abscess. Cleaned with iodine. Local anesthetized with Xylocaine. Made a 1 cm horizontal incision. Probed the wound. There was no pus. No significant blood. I believe this to be an early abscess but no walled off pus pocket. Packed with 5 inches of half-inch plain gauze. Instructed on wound care. Discharge Plan Triage ED Provider: Markell Jacques Dx/Rx/DC Orders Clinical Impression: Abscess of chest wall, Encounter for incision and drainage procedure Instructions: Abscess Drainage Prescriptions: No Action sertraline 100 mg tablet 150 mg PO DAILY topiramate 25 MG tablet 25 mg PO BID dextroamphetamine-amphetamine 30 MG capsule,extended release 24hr 30 mg PO DAILY ondansetron 4 MG tablet 4 mg PO Q8H PRN PRN (Reason: Nausea) Qty: 10 0RF dexamethasone 0.75 mg tablet 2.25 mg PO DAILY Patient Comments: TAKE 5 TABLETS on morning OF appt, TAKE 4 TABLETS morning OF 2nd day and Then3 (THREE) TABLET EVERY DAY step down Rx Instructions: 2 DAYS LEFT ibuprofen 600 mg tablet 600 mg PO Q6H PRN PRN (Reason: Pain) Patient Comments: TAKE 1 TABLET BY MOUTH EVERY 6 TO 8 HOURS amoxicillin-pot clavulanate 875-125 mg tablet 1 tab PO BID Patient Comments: TAKE 2 TABLETS AT ONCE followed by ONE TABLET TWICE DAILY hydrocodone-acetaminophen 5-325 mg tablet 1 tab PO Q6H PRN (Reason: pain) 3 Days Qty: 10 0RF Primary Care Provider: Ene Phillips Referrals: Ene Phillips MD [Primary Care Provider] - Activity Restrictions/Additional Instructions: Patient history of Keflex 500 mg 4 times a day. The prescription was handwritten due to us being on downtime for the computers. Warm compresses. Follow-up with not improving or return if worse. Disposition Disposition: Home, Self Care What to do if you have Problems For any increased pain, shortness of breath, bleeding, nausea or vomiting, chestpain, or any unexpected problems, contact your Primary Care Provider. Call [facility] ([phone]) or report to the closest Emergency Room. Call 911 if necessary. 01/13/23 0545 <Electronically signed by Markell Jacques MD> Cosigner Signature (if applicable): CC: Dr. Ene Phillips MD ~ Signed [facility] Work Phone: Evaluation note* Diagnosis Nausea Nausea alone Abdominal pain, generalized Diarrhea, unspecified type documented in this encounter [facility] noteNo assessment information availableWTr[facility] Work Phone: Evaluation note* Diagnosis Sore throat- Primary Acute pharyngitis documented in this encounter [facility] note* Diagnosis Bacterial sinusitis- Primary Unspecified sinusitis (chronic) Acute cough Encounter for smoking cessation counseling Counseling on substance use and abuse Elevated blood pressure reading without diagnosis of hypertension documented in this encounter [facility] note* Diagnosis Toothache- Primary Unspecified disorder of the teeth and supporting structures [facility] Additional Instructions Patient history of Keflex 500 mg 4 times a day. The prescription was handwritten due to us being on downtime for the computers. Warm compresses. 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 DATE CREATED AUTHOR AUTHOR'S ORGANIZ ATION 01/16/2023 [facility] DATE CREATED AUTHOR AUTHOR'S ORGANIZ ATION 09/13/2024 [facility] Source Comments (unrecognize d section and content) In the event this informatio n is protected by the Federal Confidentiality of Alcohol and Drug Abuse Patient Records regulations: The Federal rules restrict any use of the information to criminally investigate or prosecute any alcohol or drug abuse patient.[facility] the event this information is protected by the Federal Confidentiality of Alcohol and Drug Abuse Patient Records regulations: The Federal rules restrict any use of the information to criminally investigate or prosecute any alcohol or drug abuse patient.[facility] the event this information is protected by the Federal Confidentiality of Alcohol and Drug Abuse Patient Records regulations: The Federal rules restrict any use of the information to criminally investigate or prosecute any alcohol or drug abuse patient.[facility] the event this information is protected by the Federal Confidentiality of Alcohol and Drug Abuse Patient Records regulations: The Federal rules restrict any use of the information to criminally investigate or prosecute any alcohol or drug abuse patient.[facility] the event this information is protected by the Federal Confidentiality of Alcohol and Drug Abuse Patient Records regulations: The Federal rules restrict any use of the information to criminally investigate or prosecute any alcohol or drug abuse patient.[facility] the event this information is protected by the Federal Confidentiality of Alcohol and Drug Abuse Patient Records regulations: The Federal rules restrict any use of the information to criminally investigate or prosecute any alcohol or drug abuse patient.[facility] Reason for Visit (unrecogniz ed section and content) Reason Onset Date Comments Refill Request 12/14/2021 Reason Comments ER Discharge Summary Reason Comments Sore Throat Diarrhea, stomach cr amps x 1 day Reason Comments Head Congestion Cough, chest congest ion, ROJAS x2 weeks Specialty Diagnoses / Procedures Referred By Suellen quach Referred To Contact Internal Medicine / [facility] Diagnoses Cough, congestion, drainage, headache x 2 weeks Procedures EST SAME DAY Self Jenna Swan APRN.MANAGER SOURCING [address] [facility] [facility] [address] [place] [address] Referral ID Status Reason Start Date Expiration Date Visits Requested Visits Authorized [id number] New Request Financial Clearance Required - Self Pay 4 06/27/2024 1 1 Reason Comments Dental Problem L lower tooth infect ion x2 days Care Teams (unrecognized sec tion and content) Dust Collector Ore Crushing Relationship Specialty Start Date End Date Ene Phillips MD [address] [place], [place] [id number] PCP - General Family Practice 06/06/15 Team Status: Active Member Role Status Dates No Primary Care Physician Family Provider Active Dr. nEe Phillips MD Primary Care Provider Active Team Status: Inactive Member Role Status Dates Dr. Ene Phillips MD Primary Care Provider Active Dr. Markell Jacques MD Emergency Provider Active Dust Collector Ore Crushing Relationship Specialty Start Date End Date Ene Phillips MD [address] [place], [place] [id number] PCP - General Family Medicine 06/06/15 Dust Collector Ore Crushing Relationship Specialty Start Date End Date Ene Phillips MD [address] [place], [place] [id number] PCP - General Family Medicine 06/06/15 Dust Collector Ore Crushing Relationship Specialty Start Date End Date Een Phillips MD [address] [place] [address] PCP - General Family Medicine 06/06/15 Goals (unrecognized section and content) Goals may be documented in a n alternate section FOR RECORDS PERTAINING TO PATIENTS WHO ARE OR HAVE BEEN ENROLLED IN A CHEMICAL DEPENDENCY/SUBSTANCEABUSE PROGRAM, SOME INFORMATION MAY BE OMITTED. This clinical summary was aggregated from multiple sources. Caution should be exercised in using it in the provision of clinical care. This summary normalizes information from multiple sources, and as a consequence, information in this document may materially change the coding, format and clinical context of patient data. In addition, data may be omitted in some cases. CLINICAL DECISIONS SHOULD BE BASED ON THE PRIMARY CLINICAL RECORDS. [facility] [employer] [facility]. provides no warranty or guarantee of the accuracy or completeness of information in this document.
[2025-01-03] VITALS (39 sets, daily range): BP systolic 92–156; BP diastolic 48–125; PULSE 47–73; RESP 18–26; TEMP 36–38.8; O2SAT 90–100; BMI 51.6; BMI 51.5
[2025-01-03] MEDS: Ceftriaxone 2 GM in 0.9% Normal Saline (50mL MB+) 50 ML IV (00:07)
--- NOTE | 2025-01-03 00:17 | ED.RN ---
REPORT CALLED TO ICU NURSE, JANELL AT THIS TIME. ICU READY FOR PATIENT
--- OUTSIDE RECORDS SUMMARY | 2025-01-03 00:17 | XMS RPT_ITS | CCD ---
Author Organization [facility] Care Team Providers Care Stallion Manager Name Role Phone KATY GALLOWAY Admitting Unavailable NASIMA NICOLE (RES) Attending Ene Alvarez Primary Care Unavailable KATY GALLOWAY Admitting Unavailable NASIMA NICOLE Attending Unavailable Ene Phillips MD Primary Care Provider Markell Jacques Unavailable Ene Phillips Primary Care Unavailable Ene Phillips MD Primary Care Provider Ene Phillips MD Primary Care Provider Unavailable Primary Care Provider ENE Alvarez Primary Care Unavailable Allergies Allergy Classification Reported Allergen(s) Allergy Type Date of Onset Reaction(s) Facility (9 sources) busPIRone; Translations: [BUSPIRONE HCL] Drug Allergy 5 Other: See Comments [facility] Other [facility] Repository (1 source) busPIRone Drug Allergy 2 Nausea (1 source) busPIRone Drug Allergy 2 Repository Medications Current Medications Medication Drug Class(es) [...] 8 hours as needed. polyethylene glycol 3350 49791 mg powder for oral solution (4 sources) [...] nasal spray Indications: Bacterial sinusitis Use 1 [place] in the nose two times a day. [...] CNOV Office Visit (UCWSTR ) JENNIFER BERRY ([id number]) 1990 F Date Time Provider Department 09/12/24 3:30 PM LÁZARO DICKEY [facility] During your visit today, we recorded [...] (Discontinued) Reported (more content not included)... Normal [facility] 04-12-2024 [facility] Telephone (CLIFFORDWS) JENNIFER BERRY ([id number]) 1990 F Date Time Provider Department 04/12/24 [...] Date Reviewed: 03/29/2024 Reviewed by: Jenna Swan APRN.MARITIME PILOT - Fully Assessed Prescriptions as of 04/12/2024 - topiramate (TOPAMAX) 50 mg tablet Take 1 tablet by mouth every 12 hours. - nicotine polacrilex (NICORETTE) 4 mg gum Take 1 Each by mouth as needed. - sodium chloride (SALINE MIST) 0.65 % nasal spray Use 1 [place] in the nose two times a day. [...] Encounter Status:Closed by GINNY WEBER on 04/12/24 [facility] CNOVon 03-29-2024 CNOV Office Visit (WSTR ) JENNIFER BERRY ([id number]) 1990 F Date Time Provider Department 03/29/24 1:30 PM JENNA SWAN [facility]WSTR During your visit today, we recorded the following information about you: Temperature Pulse Respiration Blood pressure 98.4 degrees 71/minute 20/minute 160/90 Weight 154.2 kg Jenna Swan APRN.[facility] 03/29/2024 1:43 PM Signed SMOKING CESSATION: [...] You may also try the Tobacco Free [place] phone number 6-941-U-CAN-NOW ( ) or visit them on the internet, http://tobaccofrAscent Solar Technologies/. Adult Sinusitis Patient Education What is Sinusitis? Sinusitis [zhwr-vvq-rrrt-tis] is inflammation of the sinuses or swelling [...] help. You may be instructed to take zagy-ben-zmcarbf medications for symptoms. including fever reducers acetaminophen or ibuprofen, nasal saline spray, cough and cold preparations and decongestants as prescribed by the physician, nurse practitioner or physician trust manager assistant. Self-Care and Prevention: Rest Fluids for hydration Good hand washing Humidifier Avoid smoking and exposure to second hand smoke Avoid sick contacts Jenna Swan APRN.BRUNO 03/29/2024 1:52 PM Addendum EXPRESS [...] above, patien (more content not included)... Normal [facility] STREP A MOLECULAR (POC)on Procedural Control Valid [facility] Strep A (POCT) Negative Negative [facility] Emergency Department Summary on 01-13-2023 Emergency Department Summary [facility] Medical Records Department [address] [place] [address] Emergency Department Summary 01/13/23 MR#: [id number] Acct: [id number] Name: JENNIFER BERRY Rep #: [id number] : 1990 32 From: Markell Jacques MD [...] symptoms: Yes Recent Illness/Hospitalizatio n: No PFSH [facility] Medical History (Updated 01/13/23 @ 05:45 by [...] safe at home: Yes 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 Normal CASE MANAGEMon 09-08-2018 CASE MANAGEM HNO ID: [id number] Author: Laureen Weaver (Sw) Service: Care Management Author Type: Miter Operator Type: Care Mgt Progress Note Filed: 09/08/2018 11:49 AM Note Text: BEHAVIORAL HEALTH SOCIAL WORK DISCHARGE NOTE SERVICE DATE: 09/08/2018 SERVICE TIME: 1145 PATIENT'S DISCHARGE PLAN: Discharge Disposition Discharge Disposition: Home with Family/Friend Custodial Referral Information [facility]idential Treatment Center Referral Information [facility] Homeless Senior Care Referral Information Crisis Stabilization Unit Acute Care Facility Referral Information Assisted Living Facility Referral Information Home Care Agency Referral Information Linux [employer] [facility] Psychiatry Follow-Up Appointment Psychiatrist Name: DR. 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 n/a Patient/Cadet Deck Given/Explained Medicare Discharge Notice (IM letter): Not [...] DATE: September 08, 2018 TIME: 11:45 AM [facility] PLAN OF CAREon 09-08-2018 PLAN OF CARE HNO ID: [id number] Author: Brunilda Cunningham (Clinical Services Consultant) Service: Pharmacy Author Type: ? Type: Plan of Care Filed: 09/08/2018 10:29 AM Note Text: 3TECHNICIAN BEDSIDE DELIVERY SURVEY 1. Patient to use [facility] Bedside Delivery - YES Insurance Information as follows: 2. Insurance card on file - N/A 3. Credit card for payment - N/A Please call if patient is to be going home and would like to fill medications(if/once written) with bedside negative restorer service. (Pharmacy hours: 7:00am - 5:30pm) Brunilda Cunningham (lamination technician) [id number] or Nhi Coronel [phone] [facility] ALLIED HEALTHon 09-07-2018 ALLIED HEALTH HNO ID: [id number] Author: Carole Mclaughlin (Therapist) [place] Service: ? [...] 2018 TIME: 4:49 PM PAGER/CONTACT #: Janeth [facility] ALLIED HEALTH HNO ID: [id number] Author: Carole Mclaughlin (Therapist) [place] Service: ? [...] 2018 TIME: 1:00 PM PAGER/CONTACT #: Janeth [facility] Hgb A1con 09-07-2018 Hemoglobin A1c/Hemoglobin.total mass fraction (Bld) 103 mg/dl Normal [facility] Comment on above: Performed By: #### U RIN2 #### [place] [address] Hemoglobin A1c/Hemoglobin.total mass fraction (Bld) 5.2 % Normal 4.2-6.3 [facility] Comment on above: Result Comment: Meth od is National Glycohemoglobin Standardization Program (NGSP) compliant. Performed By: #### U RIN2 #### [place] [address] Lipid Profileon 09-07-2018 Cholesterol in HDL mass conc 39 mg/dL Normal >40 [facility] Comment on above: Performed By: #### U RIN2 #### [place] [address] Cholesterol in LDL mass conc 147 mg/dL Normal [facility] Comment on above: Result Comment: No C AD and with fewer than 2 CAD risk factors <160 mg/dL No CAD but with 2 or more CAD risk factors <130 mg/dL Definite CAD or other atherosclerotic disease <100 mg/dL Performed By: #### U RIN2 #### [facility] [address] [place], [place] [address] Cholesterol in LDL/Cholesterol in HDL mass ratio 3.8 High 0.6-3.6 [facility] Comment on above: Result Comment: LDL, VLDL,LDL/HDL, Invalid if Triglyceride >400 Performed By: #### U RIN2 #### [facility] [address] [place], [place] [address] Cholesterol.total/Ch olesterol in HDL mass ratio 5.5 {ratio} High 1.8-5.3 [facility] Comment on above: Performed By: #### U RIN2 #### [address] [address] Cholesterol in VLDL mass conc 29 mg/dL Normal <50 Desired [facility] Comment on above: Performed By: #### U RIN2 #### [facility] [address] [place], [place] [address] Triglyceride mass conc 145 mg/dL Normal 0-149 [facility] Comment on above: Result Comment: < 20 0 Desirable Result invalid if not a fasting specimen. Performed By: #### U RIN2 #### [address] [address] Cholesterol mass conc 215 mg/dL High 0-199 [facility] Comment on above: Result Comment: <200 Desirable 200-240 Borderline >240 High Performed By: #### U RIN2 #### [address] [address] NURSING PROGon 09-07-2018 Protein mass conc HNO ID: [id number] Author: Lina (Rn) ANA M Langston Service: Nursing Author Type: Registered Nurse Type: Nursing Progress Note Filed: 09/07/2018 9:32 PM Note Text: Nursing Progress Note Patient Name: Jennifer Mahmood Patient Location: [place] [address]/[facility]0- 41* __ Daily Note: Patient approached in [...] note was completed by: Lina Langston RN [facility] Protein mass conc HNO ID: [id number] Author: Ivette Morin) ANA M Mo Service: Nursing Author Type: Registered Nurse Type: Nursing Progress Note Filed: 09/07/2018 3:46 PM Note Text: Nursing Progress Note Patient Name: Jennifer Mahmood Patient Location: [id number]/[id number] 41* __ Daily Note: Pt has been [...] note was completed by: Ivette Mo RN [facility] PROGRESSon 09-07-2018 Protein mass conc HNO ID: [id number] Author: Nasima Nicole Service: Psychiatry Author Type: [...] September 07, 2018 TIME: 5:01 PM PAGER/CONTACT#: [phone] [facility] ALLIED HEALTHon 09-06-2018 ALLIED HEALTH HNO ID: [id number] Author: Regla (Therapist) [place] Service: ? Author Type: Therapist Type: Allied Health Filed: 09/06/2018 3:33 PM Note Text: PROGRESS NOTE BEHAVIORAL HEALTH Topic of Note: Group Participation SERVICE DATE: 09/06/2018 SERVICE TIME: 3933-6033 A-Pt presented with?moderate?level of energy and?bright?affect. Pt [...] 06, 2018 TIME: 3:31 PM PAGER/CONTACT #: [facility] ALLIED HEALTH HNO ID: [id number] Author: Carole Mclaughlin (Therapist) [place] Service: ? Author Type: Therapist Type: Allied Health Filed: 09/06/2018 12:49 PM Note Text: PROGRESS NOTE BEHAVIORAL HEALTH Topic of Note: Group Therapy Assessment SERVICE DATE: 09/06/2018 SERVICE TIME: Pt is a 27 year old female who was admitted to [facility] due to depression, visual hallucinations, homicidal ideation [...] opportunity to learn positive coping skills. SIGNATURE: Carole Slade, Adjunctive Therapist PATIENT NAME: Jennifer Mahmood DATE: September 06, 2018 TIME: 12:18 PM PAGER/CONTACT #: [facility] ALLIED HEALTH HNO ID: [id number] Author: Regla TesfayeTherapist) [place] Service: ? Author [...] 06, 2018 TIME: 11:47 AM PAGER/CONTACT #: [facility] CASE MGT INSHARMILA Delacruz 2018 CASE MGT INIT JAMIE HNO ID: [id number] Author: Laureen Weaver (Sw) Service: Care Management Author Type: Miter Operator Type: Care Mgt Initial Assessment Filed: 09/06/2018 1:50 PM Note Text: BEHAVIORAL HEALTH SOCIAL WORK/CARE MANAGEMENT ASSESSMENT AND DISCHARGE PLAN SERVICE DATE: 09/06/2018 SERVICE TIME: 144 Reason for Admission: Suicide Ideation, Depression, grief, stopped taking medications. 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 Her childhood is described as fair. She has patient's father is alive, patient's father is estranged and patient's mother is alive. She has strained relationship with mother. Abuse History (emotional, mental, physical, sexual, verbal, neglect, other): No, Patient/Cadet Deck Denies Education History: High School Support System: Limited Support System Family: Outpatient Provider(s): [facility] Employment Status: Unemployed, Not Seeking Work Financial Resources: Family Health Insurance: PRIMARY: Medicaid Status (including history of combat experience): None Legal History: Patient/Cadet Deck Denies Congregation/Spirituality: Catholicism PSYCHIATRIC HISTORY: - Psychiatrist: Dr Schulz Has Patient Been Hospitalized Previously for Psychiatric Reasons? No, Patient/Cadet Deck denies Substance Use and Treatment History: Patient/Cadet Deck Denies Do special considerations/accommo dations need to be made (i.e. preferred language, literacy, gender identity, physical disability such as deaf or blind, etc)? No, Patient/Cadet Deck Denies Are there practices or beliefs that may affect or influence treatment? No, Patient/Cadet Deck Denies Patient Strengths/Protective Factors (Minimum of Two): Able to Communicate Needs Connected with Outpatient Providers Future-Oriented Insight Responsibility for Others Stable Housing Supportive Friends/Family FAMILY PSYCHIATRIC HISTORY Substance Abuse: Mother DISCHARGE RECOMMENDATIONS: Relinkage With Previous Providers Psychiatry Follow-Up Patient/Cadet Deck Agreeable With Discharge Recommendations At This Time? Yes FREEDOM OF CHOICE EXPLAINED: n/a NEEDS PRIOR TO DISCHARGE: Waiting for: Psychiatric Stabilization Transportation Communication with Physician Physician to Discharge OBSTACLES TO TREATMENT/POST-DISCHAR GE CHALLENGES: None At This Time SUMMARY: Sw completed assessment. SW reconnected pt with o/p provider for follow up care and added a therapist. 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 Sw provided self care support. Sw will continue to monitor pt progress. SIGNATURE: BJ Espitia PATIENT NAME: Jennifer Mahomod DATE: September 06, 2018 TIME: 1:44 PM Normal [facility] HISTORY PHYSICALon 9 HISTORY PHYSICAL HNO ID: [id number] Author: Nasima Nicole Service: Psychiatry Author Type: Physician Type: HANDP Filed: 09/06/2018 5:45 PM Note Text: HISTORY AND PHYSICAL BEHAVIORAL HEALTH SERVICE DATE: 09/06/2018 SERVICE TIME: 5:33 PM IDENTIFYING INFORMATION: Jennifer Mahmood is a 27 year old unemployed female who lives with spouse in [place]. REASON FOR ADMISSION: Depression Subjective HPI: Jennifer [...] that she had thoughts of killing her taptpf-xy-wvp. She states now that she had no actual plan or intention to really kill her jpushw-qc-olm if she does not get along well [...] Psychiatrist: Dr. Schulz Current Therapist: none Current Continuity Manager: none Last Hospitalization: none; Total Hospitalizations: 0 History of Suicide Attempts: Total: denies; Methods: NA Previous Discontinued Psychiatric Med Trials: Adderall, Ativan, Depakote, Effexor, Geodon, Tornado, Risperdal, Seroquel, Wellbutrin, Xanax and Zoloft PAST [...] dizziness SOCIAL HISTORY: Born AND Raised in [place] Childhood: Nl Development, no abuse, Mom was an addict, raised by grandparents Education: High school Employment: Unemployed, not seeking work. Relationships: The patient currently is x2 years Children: none Current Supports Include: spouse. Legal History: Disorderly conduct Mosque Affiliations: none FAMILY HISTORY: Anxiety (Father), Bipolar [...] September 06, 2018 TIME: 5:33 PM PAGER/CONTACT#: [phone] Normal [facility] NURSING PROGon 09-06-2018 Protein mass conc HNO ID: [id number] Author: Mer TesfayeRn) ANA M Posadas Service: Nursing Author Type: Registered Nurse Type: Nursing Progress Note Filed: 09/06/2018 10:43 PM Note Text: Nursing Progress Note Patient Name: Jennifer Mahmood Patient Location: [place] [address] [address]* __ Daily Note:Patient appears resting in [...] note was completed by: Mer Posadas RN [facility] Protein mass conc HNO ID: [id number] Author: Martha TesfayeRn) ANA M Kimbrough Service: ? Author Type: Registered Nurse Type: Nursing Progress Note Filed: 09/06/2018 11:03 AM Note Text: Nursing Progress Note Patient Name: Jennifer Mahmood Patient Location: [id number]/[facility]-6 41* __ Daily Note: Pt cooperative with automatic lathe tender. Pt states she was admitted due to [...] note was completed by: Martha Kimbrough RN [facility] Protein mass conc HNO ID: [id number] Author: Daxa (Rn) ANA M Garcia Service: Nursing Author Type: Registered Nurse Type: Nursing Progress Note Filed: 09/06/2018 2:15 AM Note Text: Nursing Progress Note Patient Name: Jennifer Mahmood Patient Location: [id number]/[place]-[id number] 41* __ Patient arrived on unit from [...] was completed by: Daxa Garcia, RN Normal [facility] Alcohol, Serumon 09-05-2018 Alcohol, Serum < 3 Normal [facility] Comment on above: Performed By: #### A LC #### [facility] [address] [place] [address] CPKon 09-05-2018 CK enzyme act/vol 121 U/L Normal 26-192 [facility] Comment on above: Performed By: #### C K #### [facility] [address] [place] [address] Comprehensive Panelon 2018 ALP enzyme act/vol 46 U/L Normal 46-116 [facility] Comment on above: Performed By: #### P 14 #### [facility] [address] [place] [address] Bilirubin mass conc 0.7 mg/dL Normal 0.2-1.0 [facility] Comment on above: Performed By: #### P 14 #### [facility] [address] [place] [address] Protein mass conc 8.3 g/dL High 6.4-8.2 [facility] Comment on above: Performed By: #### P 14 #### [facility] [address] [place] [address] ALT enzyme act/vol 25 U/L Normal 12-78 [facility] Comment on above: Performed By: #### P 14 #### [facility] [address] [place] [address] AST enzyme act/vol 16 U/L Normal 9-37 [facility] Comment on above: Performed By: #### P 14 #### [facility] [address] [place], [place] [address] Creatinine mass conc 0.73 mg/dL Normal 0.51-0.95 [facility] Comment on above: Performed By: #### P 14 #### [facility] [address] [place] [address] Albumin mass conc 3.9 g/dL Normal 3.4-5.0 [facility] Comment on above: Performed By: #### P 14 #### [facility] [address] [place], [place] [address] Anion gap molar conc 10 mmol/L Normal 8-16 [facility] Comment on above: Performed By: #### P 14 #### [facility] [address] [place], [place] [address] Calcium mass conc 9.6 mg/dL Normal 8.5-10.1 [facility] Comment on above: Performed By: #### P 14 #### [facility] [address] [place] [address] CO2 molar conc 26 mmol/L Normal 21-32 [facility] Comment on above: Performed By: #### P 14 #### [facility] [address] [place] [address] Glucose mass conc 83 mg/dL Normal 70-99 [facility] Comment on above: Performed By: #### P 14 #### [facility] [address] [place] [address] Urea nitrogen mass conc 14 mg/dL Normal 7-18 [facility] Comment on above: Performed By: #### P 14 #### [facility] [address] [place] [address] Chloride molar conc 106 mmol/L Normal 98-107 [facility] Comment on above: Performed By: #### P 14 #### [facility] [address] [place] [address] Potassium molar conc 3.9 mmol/L Normal 3.5-5.1 [facility] Comment on above: Performed By: #### P 14 #### [facility] [address] [place] [address] Sodium molar conc 138 mmol/L Normal 136-145 [facility] Comment on above: Performed By: #### P 14 #### [facility] [address] [place] [address] ED NOTEon 09-05-2018 ED NOTE HNO ID: [id number] Author: Cindy Morin) ANA M Mejia Service: Emergency Medicine Author Type: Registered Nurse Type: ED Notes Filed: 09/05/2018 9:27 PM Note Text: HCG sent to main lab Normal [facility] ED NOTE HNO ID: [id number] Author: Cindy TesfayeRn) ANA M Mejia Service: [...] All needs met at this time. Normal [facility] ED NOTE HNO ID: [id number] Author: Uzair Wick (Tech) Service: Emergency Medicine Author Type: Family Reunification Specialist Type: ED Notes Filed: 09/05/2018 2:42 PM Note Text: urine specimen obtained and sent. [facility] ED PROV NOTEon 09-05-2018 Protein mass conc HNO ID: [id number] Author: NETTIE Collins Pa-C Service: Emergency Medicine Author Type: Physician Production Proofreader Type: ED Provider Notes Filed: 09/05/2018 7:21 [...] She is pink fluids. Awaiting callback from [facility] inpatient psychiatrist. Plan: Discussed with Dr. Galloway, accepts the patient to 6100. Admit placed. Updated patient and Dr. Johnson. ERIK Collins Pa-C, PA 09/05/181920 [facility] Protein mass conc HNO ID: [id number] Author: Irasema Johnson MD Service: Emergency Medicine Author Type: Physician Type: ED Provider Notes Filed: 09/07/2018 6:57 AM Note Text: ED Provider Note Patient Name: Jennifer Mahmood SERVICE DATE: 09/05/18 History Patient presents with: Suicidal Ideation: Pt states she wants to slit her throat. Pt has hx of bipolar disorder, anxiety and depression. Pt states she was supposed to wean off her Tornado, Zoloft, and Adderall but stopped them cold [...] THC. Serum alcohol level less than 3. Tornado <0.2. TSH within normal limits. EKG without [...] of the patient and have reviewed the NETTIE/NEUROLOGY HOSPITALIST note. I am in agreement with NETTIE's assessment and finding. Signature: Irasema Johnson MD Date: 09/07/2018 Time: 6:56 AM Irasema Johnson MD 09/07/18 0657 Normal [facility] ED Triage Noteon 09-05-2018 ED Triage Note HNO ID: [id number] Author: NETTIE Heredia (Pa) Service: Emergency Medicine Author Type: Physician Production Proofreader Type: ED Triage Notes Filed: 09/05/2018 2:11 [...] Plan deferred. SIGNATURE: Dharmesh Cristobal PA-C Normal [facility] Hemogram/Diffon 09-05-2018 Abs Immature Grans 0.06 thou/cmm High 0.00-0.05 [facility] Comment on above: Performed By: #### C BCD1 #### [place] [address] Abs. Baso 0.05 thou/cmm Normal 0.01-0.08 [facility] Comment on above: Result Comment: Smea r scanned; tech agrees with automated differential Performed By: #### C BCD1 #### [place] [address] Abs. [place] 0.63 thou/cmm Normal 0.27-0.70 [facility] Comment on above: Performed By: #### C BCD1 #### [place] [address] Abs. Neut (ANC) 5.71 thou/cmm Normal 1.56-6.13 [facility] Comment on above: Performed By: #### C BCD1 #### [address], [place] [address] Basophils/100 WBC (Bld) 0.5 % Normal [facility] Comment on above: Performed By: #### C BCD1 #### [facility] [address] [place], [place] [address] Eosinophils #/vol (Bld) 0.26 thou/cmm Normal 0.00-0.31 [facility] Comment on above: Performed By: #### C BCD1 #### [facility] [address] [place], [place] [address] Eosinophils/100 WBC (Bld) 2.5 % Normal [facility] Comment on above: Performed By: #### C BCD1 #### [facility] [address] [place], [place] [address] Immature Grans 0.60 % Normal [facility] Comment on above: Performed By: #### C BCD1 #### [facility] [address] [place], [place] [address] Lymphocytes #/vol (Bld) 3.85 thou/cmm High 1.18-3.74 [facility] Comment on above: Performed By: #### C BCD1 #### [facility] [address] [place], [place] [address] Lymphocytes/100 WBC (Bld) 36.4 % Normal [facility] Comment on above: Performed By: #### C BCD1 #### [facility] [address] [place], [place] [address] Monocytes/100 WBC (Bld) 6.0 % Normal [facility] Comment on above: Performed By: #### C BCD1 #### [facility] [address] [place], [place] [address] Seg Neutrophil 54.0 % Normal [facility] Comment on above: Performed By: #### C BCD1 #### [facility] [address] [place], [place] [address] Erythrocyte distribution width Ratio (RBC) 12.4 % Normal 11.7-14.4 [facility] Comment on above: Performed By: #### C BCD1 #### [facility] [address] [place], [place] [facility] Hematocrit Volume Fraction (Bld) 49.7 % High 34.1-44.9 [facility] Comment on above: Performed By: #### C BCD1 #### [facility] [address] [place] [address] Hemoglobin mass conc (Bld) 16.3 g/dL High 11.2-15.7 [facility] Comment on above: Performed By: #### C BCD1 #### [facility] [address] [place] [address] MCH Entitic mass (RBC) 29.4 pg Normal 25.6-32.2 [facility] Comment on above: Performed By: #### C BCD1 #### [facility] [address] [place] [address] MCHC mass conc (RBC) 32.8 % Normal 31.6-34.8 [facility] Comment on above: Performed By: #### C BCD1 #### [facility] [address] [place] [address] MCV Entitic volume (RBC) 89.5 fL Normal 79.4-94.8 [facility] Comment on above: Performed By: #### C BCD1 #### [facility] [address] [place] [address] Platelet mean volume Entitic volume (Bld) 9.8 fL Normal 9.4-12.3 [facility] Comment on above: Performed By: #### C BCD1 #### [facility] [address] [place] [address] Platelets #/vol (Bld) 298 thou/cmm Normal 182-369 [facility] Comment on above: Performed By: #### C BCD1 #### [facility] [address] [place] [address] RBC #/vol (Bld) 5.55 mil/cmm High 3.93-5.22 [facility] Comment on above: Performed By: #### C BCD1 #### [facility] [address] [place] [address] RDW SD 41.0 fl Normal 36.4-46.3 [facility] Comment on above: Performed By: #### C BCD1 #### [facility] [address] [place] [address] WBC #/vol (Bld) 10.57 thou/cmm High 3.98-10.04 [facility] Comment on above: Performed By: #### C BCD1 #### [facility] [address] [place] [address] Tornado Serumon 09-05-2018 Tornado Serum < 0.2 Low 0.6-1.2 [facility] Comment on above: Performed By: #### L ITH #### [place] [address] MDRD GFRon 09-05-2018 GFR/1.73 sq M predicted among non-blacks MDRD vol rate/area (S/P/Bld) mL/min/{1.73_m2} Normal >60mL/min/1.73 m2 [facility] Comment on above: Result Comment: If t he patient is , multiply the result by 1.210. Performed By: #### G FR #### [facility] [address] [place] [address] TSH, 3rd generationon 2018 TSH, 3rd generation 1.210 uIU/mL Normal 0.358-3.740 [facility] Comment on above: Performed By: #### T SH3 #### [place] [address] Urinalysis Routineon 019 Bacteria LM.HPF #/area (Urine sed) NONE Normal None [facility] Comment on above: Performed By: #### U RIN2 #### [facility] [address] [place] [address] Ep Cells Urine 4.2 /hpf Normal 0.0-5.0 [facility] Comment on above: Performed By: #### U RIN2 #### [facility] [address] [place] [address] Hyaline Cast 0.0 /lpf Normal 0.0-1.0 [facility] Comment on above: Performed By: #### U RIN2 #### [facility] [address] [place] [address] RBC,Urine 2.4 /hpf Normal 0.0-5.0 [facility] Comment on above: Performed By: #### U RIN2 #### [facility] [address] [place] [address] WBC, Urine 0.5 /hpf Normal 0.0-5.0 [facility] Comment on above: Performed By: #### U RIN2 #### [facility] [address] [place] [address] Appearance Nom (U) CLEAR Normal [facility] Comment on above: Performed By: #### U RIN2 #### [facility] [address] [place] [address] Bilirubin Urine Negative Normal Negative [facility] Comment on above: Performed By: #### U RIN2 #### [facility] [address] [place] [address] Color Nom (U) YELLOW Normal [facility] Comment on above: Performed By: #### U RIN2 #### [facility] [address] [place] [address] Glucose Ql (U) Negative Normal Negative [facility] Comment on above: Performed By: #### U RIN2 #### [facility] [address] [place] [address] Hemoglobin,Urine Negative Normal Negative [facility] Comment on above: Performed By: #### U RIN2 #### [facility] [address] [place] [address] Ketone Urine Negative Normal Negative [facility] Comment on above: Performed By: #### U RIN2 #### [facility] [address] [place] [address] Leukocytes Esterase Negative Normal Negative [facility] Comment on above: Performed By: #### U RIN2 #### [facility] [address] [place] [address] Nitrites Urine Negative Normal Negative [facility] Comment on above: Performed By: #### U RIN2 #### [facility] [address] [place] [address] pH (U) 6.5 [pH] Normal 5.0-8.0 [facility] Comment on above: Performed By: #### U RIN2 #### [facility] [address] [place], [place] [address] Protein mass conc (U) Negative Normal Negative [facility] Comment on above: Performed By: #### U RIN2 #### [facility] [address] [place], [place] [address] Specific [place], Ur 1.023 Normal 1.005-1.030 [facility] Comment on above: Performed By: #### U RIN2 #### [facility] [address] [place], [place] [address] Urobilinogen,Ur 1.0 EU/dL Normal 0.0-1.0 [facility] Comment on above: Performed By: #### U RIN2 #### [facility] [address] [place] [address] Urine Drug Screenon 09-06-19 Urine Amphetamine Non-detected Normal Non-Detected [facility] Comment on above: Performed By: #### U DRG2 #### [facility] [address] [place], [place] [address] Urine Barbiturates Non-detected Normal Non-Detected [facility] Comment on above: Performed By: #### U DRG2 #### [facility] [address] [place], [place] [address] Urine Benzodiazepine Non-detected Normal Non-Detected [facility] Comment on above: Performed By: #### U DRG2 #### [facility] [address] [place], [place] [address] Urine Cocaine Metab Non-detected Normal Non-Detected [facility] Comment on above: Performed By: #### U DRG2 #### [facility] [address] [place], [place] [address] Urine Opiate Non-detected Normal Non-Detected [facility] Comment on above: Performed By: #### U DRG2 #### [facility] [address] [place], [place] [address] Urine PCP Non-detected Normal Non-Detected [facility] Comment on above: Performed By: #### U DRG2 #### [facility] [address] [place], [place] [address] Urine THC see below Normal Non-Detected [facility] Comment on above: Result Comment: Dete cted [...] only. Performed By: #### U DRG2 #### [address] [address] Urine HCG, Qual.on 9 HCG.beta subunit ( test) Ql (U) Negative Normal Negative [facility] Comment on above: Performed By: #### H CGUR #### [address] [address] Specific [place], Ur 1.024 Normal 1.005-1.030 [facility] Comment on above: Performed By: #### H CGUR #### [address] [address] Creatinineon 08-10-2018 Creatinine mass conc 0.83 mg/dL Normal 0.58-0.96 [facility] Comment on above: Performed By: #### L I, CRET1, TSH #### [facility] Routine Lab [address] [place] [address] Creatinine mass conc mg/dL Normal [facility] Comment on above: Performed By: #### L I, CRET1, TSH #### [facility] Routine Lab [address] [place] [id number] Lithiumon 08-10-2018 [place]ornado molar conc 0.2 mmol/L Low 0.6-1.2 [facility] Comment on above: Performed By: #### L I, CRET1, TSH #### [facility] Routine Lab [address] [place], [place] [address] TSHon 08-10-2018 Thyrotropin Qn 1.320 uU/mL Normal 0.400-5.500 [facility] Comment on above: Performed By: #### L I, CRET1, TSH #### [facility] Routine Lab [address] [place], [place] [address] Vital Signs Date Time Vital Sign Value Performing Clinician Faci lity 09-12-2024 15:37-0400 Body mass index (BMI) [Ratio] 56.61 kg/m2 Lázaro Dickey MD Work Phone: [facility] 09-12-2024 15:37-0400 Body temperature 98.1 [degF] Lázaro Dickey MD Work Phone: [facility] 09-12-2024 15:37-0400 Body weight 159.1 kg Lázaro Dickey MD Work Phone: [facility] 09-12-2024 15:37-0400 Diastolic blood pressure 102 mm[Hg] Lázaro Dickey MD Work Phone: [facility] 09-12-2024 15:37-0400 Heart rate 64 /min Lázaro Dickey MD Work Phone: [facility] 09-12-2024 15:37-0400 Respiratory rate 20 /min Lázaro Dickey MD Work Phone: [facility] 09-12-2024 15:37-0400 SaO2% (BldA) [Mass fraction] 98 % Lázaro Dickey MD Work Phone: [facility] 09-12-2024 15:37-0400 Systolic blood pressure 195 mm[Hg] Lázaro Dickey MD Work Phone: [facility] 03-29-2024 13:50-0400 Diastolic blood pressure 90 mm[Hg] Jenna Swan APRN.CNP Work Phone: [facility] 03-29-2024 13:50-0400 Respiratory rate 20 /min Jenna Swan APRN.[employer] Work Phone: [facility] 03-29-2024 13:50-0400 Systolic blood pressure 160 mm[Hg] Jenna Swan APRN.[employer] Work Phone: [facility] 03-29-2024 13:27-0400 Body mass index (BMI) [Ratio] 54.87 kg/m2 Jenna Swan APRN.[employer] Work Phone: [facility] 03-29-2024 13:27-0400 Body temperature 98.4 [degF] Jenna Swan APRN.[employer] Work Phone: [facility] 03-29-2024 13:27-0400 Body weight 154.2 kg Jenna Swan APRN.[employer] Work Phone: [facility] 03-29-2024 13:27-0400 Heart rate 71 /min Jenna Swan APRN.[employer] Work Phone: [facility] 03-29-2024 13:27-0400 SaO2% (BldA) [Mass fraction] 97 % Jenna Swan APRN.[employer] Work Phone: [facility] 02-10-2023 14:34-0400 Body temperature 98.71 [degF] Nieves Conner APRN.[employer] Work Phone: [facility] 02-10-2023 14:34-0400 Body weight 157.31 kg Nieves Conner APRN.[employer] Work Phone: [facility] 02-10-2023 14:34-0400 Diastolic blood pressure 82 mm[Hg] Nieves Conner APRN.[employer] Work Phone: [facility] 02-10-2023 14:34-0400 Heart rate 90 /min Nieves Conner APRN.[employer] Work Phone: [facility] 02-10-2023 14:34-0400 Respiratory rate 21 /min Nieves Conner APRN.[employer] Work Phone: [facility] 02-10-2023 14:34-0400 SaO2% (BldA) [Mass fraction] 98 % Nieves Conner APRN.[employer] Work Phone: [facility] 02-10-2023 14:34-0400 Systolic blood pressure 128 mm[Hg] Nieves Conner APRN.[employer] P[employer] Work Phone: [facility] Encounters Encounter Date Encounter Type Care Provider Facility Start: 09-12-2024 End: 09-12-2024 ambulatory ENE CHIRINOSEY Facility:[facility] Start: 09-12-2024 End: 09-12-2024 Patient encounter procedure Lázaro Dickey MD Work Phone: [facility] Comment on above: Toothache (Primary D x) Start: 04-12-2024 End: 04-12-2024 Telephone encounter Ene Phillips MD Work Phone: [facility] Start: 03-29-2024 End: 03-29-2024 ambulatory ENE PHILLIPS Facility:[facility] Start: 03-29-2024 End: 03-29-2024 Patient encounter procedure Jenna Swan APRN.[employer]IT[employer] PILOT Work Phone: [facility] Comment on above: Bacterial sinusitis (Primary Dx); Acute cough; Encounter for smoking cessation counseling; Elevated blood pressure reading without diagnosis of hypertension Start: 02-10-2023 End: 02-10-2023 Patient encounter procedure Nieves Conner APRN.[employer] Work Phone: [facility] Comment on above: Sore throat (Primary Dx) Start: 01-13-2023 Chart abstracting Ene asencio MD Work Phone: [facility] Comment on above: ER Discharge Summary Start: 01-13-2023 End: 01-13-2023 Emergency department patient visit Markell Jacques Facility: Start: 01-13-2023 End: 01-13-2023 Emergency department patient visit -Emergency Department Work Phone: Start: 12-14-2021 Refluiza Hsu Work Phone: [facility] Comment on above: Refill Request Start: 09-05-2018 End: 09-08-2018 Evaluation and management of inpatient KATY GALLOWAY [facility] Procedures Date Procedure Procedure Detail Performing Clinician Start: 02-10-2023 STREP Belinda MOLECULAR (POC) Nieves Conner APRN.[employer] P[employer] Work Phone: Start: 09-05-2018 Electrocardiogram AI GALLOWAY Start: 11-24-2017 Adult depression scr eening assessment Chepe Fine MD Work Phone: Plan of Treatment Date Care Activity Detail Author Start: 10-16-2027 Urine microalbumin profile [facility] Start: 04-13-2024 End: 04-13-2024 Patient encounter procedure 04/13/2024 2:20 PM EDT Office Visit [facility] [address] [place] [address] Ene Phillips MD [address] [place] [address] ec follow up [facility] Comment on above: ec follow up Start: 02-19-2024 Covid-19 Vaccine ( season) Covid-19 Vaccine ( season) [facility] Start: 02-19-2024 Influenza vaccination Influenza Vacc ine (#1) [facility] Start: 02-18-2023 Influenza vaccination INFLUENZA (#1) [facility] Start: 2022 HPV TESTING HPV TESTING [facility] Start: 09-01-2022 PAP TESTING PAP TESTING [facility] Start: 06-20-2022 DEPRESSION ASSESSMENT DEPRESSION ASS ESSMENT [facility] Start: 02-18-2022 Influenza vaccination INFLUENZ A (Season Ended) [facility] Start: 09-01-2020 PAP TESTING PAP TESTING [facility] Start: 09-01-2020 Screening for malign ant neoplasm of cervix Cervical Cancer Screening [facility] Start: 11-24-2018 Adult depression screening assessment DEPRESSION SCREENING [facility] Start: 09-29-2017 HPV VACCINE (2 - 3-d ose series) HPV VACCINE (2 - 3-dose series) [facility] Start: 05-24-2016 Hepatitis B Vaccine (3 of 3 - 3-dose series) Hepatitis B Vaccine (3 of 3 - 3-dose series) [facility] Start: 12-24-2011 Pneumococcal vaccination Pneum ococcal Vaccine (1 of 2 - PCV) [facility] Start: 2010 Anxiety Screening Anxiety Screening [facility] Start: 2010 Depression Screening Depression Scre ening [facility] Start: 1998 PNEUMOCOCCAL (1 - PCV) PNEUMOCOCCAL (1 - PCV) [facility] Start: 1998 Pneumococcal vaccination Pneum ococcal Vaccine (1 of 2 - PCV) [facility] Start: 1997 COVID-19 VACCINE (#1) COVID-19 VACCI NE (#1) [facility] Start: 06-25-1993 COVID-19 VACCINE (#1) COVID-19 VACCI NE (#1) [facility] Start: 06-25-1993 HEPATITIS B (3 of 3 - 3-dose series) HEPATITIS B (3 of 3 - 3-dose series) [facility] Patient Education Abscess Drainage [facility] Work Phone: Patient referral [facility] Work Phone: Immunizations Immunization Date Immunization Notes Care Provider [facility]-15-2017 tetanus toxoid, redu esdras diphtheria toxoid, and acellular pertussis vaccine, adsorbed Chepe Fine MD Work Phone: [facility] Work Phone: 08-07-2017 tetanus toxoid, redu esdras diphtheria toxoid, and acellular pertussis vaccine, adsorbed Chepe Fine MD Work Phone: [facility] Work Phone: 03-29-2016 hepatitis B vaccine, pediatric or pediatric/adolescent dosage 03-15-2016 influenza, seasonal, injectable 03-15-2016 tetanus toxoid, redu esdras diphtheria toxoid, and acellular pertussis vaccine, adsorbed 03-15-2016 influenza virus vaccine, unspecified formulation Jenna Swan APRN.[employer] Work Phone: [facility] 06-10-2015 influenza, injectabl e, quadrivalent, contains preservative Chepe Fine MD Work Phone: [facility] Work Phone: 04-24-2014 influenza, seasonal, injectable Chepe Fine MD Work Phone: [facility] 04-24-2014 tetanus toxoid, redu esdras diphtheria toxoid, and acellular pertussis vaccine, adsorbed Chepe Fine MD Work Phone: [facility] 02-07-1998 diphtheria, tetanus toxoids and acellular pertussis vaccine Chepe Fine MD Work Phone: [facility] Work Phone: 02-07-1998 measles, mumps and rubella virus vaccine Chepe Fine MD Work Phone: [facility] Work Phone: 07-21-1994 diphtheria, tetanus toxoids and acellular pertussis vaccine Chepe Fine MD Work Phone: [facility] Work Phone: 07-21-1994 haemophilus influenz ae type b vaccine, HbOC conjugate Chepe Fine MD Work Phone: [facility] Work Phone: 07-21-1994 measles, mumps and rubella virus vaccine Chepe Fine MD Work Phone: [facility] Work Phone: 07-21-1994 trivalent poliovirus vaccine, live, oral Chepe Fine MD Work Phone: [facility] Work Phone: 07-10-1993 diphtheria, tetanus toxoids and acellular pertussis vaccine Chepe Fine MD Work Phone: [facility] Work Phone: 07-10-1993 haemophilus influenz ae type b vaccine, HbOC conjugate Chepe Fine MD Work Phone: [facility] Work Phone: 07-10-1993 trivalent poliovirus vaccine, live, oral Chepe Fine MD Work Phone: [facility] Work Phone: 04-25-1993 diphtheria, tetanus toxoids and acellular pertussis vaccine Chepe Fine MD Work Phone: [facility] Work Phone: 04-25-1993 haemophilus influenz ae type b vaccine, HbOC conjugate Chepe Fine MD Work Phone: [facility] Work Phone: 04-25-1993 hepatitis B vaccine, pediatric or pediatric/adolescent dosage Chepe Fine MD Work Phone: [facility] Work Phone: 04-25-1993 trivalent poliovirus vaccine, live, oral Chepe Fine MD Work Phone: [facility] Work Phone: 04-25-1993 hepatitis B vaccine, unspecified formulation Ene Phillips MD Work Phone: [facility] 02-17-1993 diphtheria, tetanus toxoids and acellular pertussis vaccine Chepe Fine MD Work Phone: [facility] Work Phone: 02-17-1993 haemophilus influenz ae type b vaccine, HbOC conjugate Chepe Fine MD Work Phone: [facility] Work Phone: 02-17-1993 trivalent poliovirus vaccine, live, oral Chepe Fine MD Work Phone: [facility] Work Phone: 01-07-1993 hepatitis B vaccine, pediatric or pediatric/adolescent dosage Chepe Fine MD Work Phone: [facility] Work Phone: Payers Date Payer Category Payer Self-pay [id number] [phone] [id number] 2023 Unknown [id number] 2022 Unknown [employer] PPO OOS [id number] 2022-Present [phone] [id number] [place] [address] PPO [id number] Unknown [facility]ES [facility] [id number] Unknown [id number] Social History Date Type Detail Facility Start: 10-10-2010 End: 03-29-2024 Tobacco smoking status VTIS Smokes tobacco daily [facility] Start: 10-10-2010 End: 05-28-2020 Cigarettes smoked current (pack per day) - Reported 0.5 [facility] Start: 10-10-2010 End: 03-29-2024 Tobacco use and exposure Smokeless tobacco non-user [facility] Start: 08-19-2021 End: 09-12-2024 Alcohol intake Current non-drinker of alcohol (finding) [facility] Start: 1990 Sex Assigned At Female [facility] Start: 08-22-2021 Tobacco smoking stat us VTIS Unknown if ever smoked Start: 06-06-2019 With Family [facility] History of tobacco use Cigarette Smoker [facility] Start: 05-28-2020 End: 08-19-2021 Tobacco use panel [facility] PHQ[facility] Start: 2020 Gender identity Identifies as female gender (finding) [facility] Functional Status Date Assessment Result Facility 09-08-2018 Are you deaf, or do you have serious difficulty hearing No 09/08/2018 11:49 AM Ivette Gonzalez RN No [facility] 09-08-2018 Are you blind, or do you have serious difficulty seeing, even when wearing glasses No 09/08/2018 11:49 AM Ivette Gonzalez RN No [facility] 09-08-2018 Do you have serious difficulty walking or climbing stairs No 09/08/2018 11:49 AM Ivette Gonzalez RN No [facility] 09-08-2018 Do you have difficul ty dressing or bathing No 09/08/2018 11:49 AM Ivette Gonzalez RN No [facility] 09-08-2018 Because of a physica l, mental, or emotional condition, do you have difficulty doing errands alone such as visiting a physician's office or shopping No 09/08/2018 11:49 AM EDT Ivette Mo RN No [facility] Mental Status Date Assessment Result Facility 09-08-2018 Because of a physica l, mental, or emotional condition, do you have serious difficulty concentrating, remembering, or making decisions No 09/08/2018 11:49 AM EDT Ivette Mo RN No [facility] Clinical Notes 12-14-2021 to 09-12-2024 Lázaro Dickey MD - 09/12/2024 3:53 PM EDTTelephone Encounter - Ginny Weber LPN - 04/12/2024 12:47 PM EDTTelephone Encounter - Ginny Weber LPN - 04/12/2024 12:47 PM EDT Note Date & Type Note Facility 09-12-2024 Note HNO ID: [id number] Author: LÁZARO DICKEY MD Service: ? Author [...] strain Disposition The patient was discharged. Procedures [facility] 09-12-2024 History of Presen t illness [...] was discharged. Procedures documented in this encounter [facility] 04-12-2024 Telephone encount er Note Per Dr Phillips pt has not seen him since 2014. She is considered a new pt and his practice is closed. Attempted to contact pt but both contact numbers listed are not working numbers. Did send pt a msg although pt hasn't used this since 02/11/23. Appointment has been canceled. Ginny Weber LPN [facility] 04-12-2024 Miscellaneous Notes Formattin g of this [...] Ginny Weber LPN documented in this encounter [facility] 03-29-2024 Note HNO ID: [id number] Author: JENNA SWAN APRN.MARITIME PILOT Service: ? Author Type: Nurse Practitioner Type: [...] Obesity, Class Iii, Bmi 40-49.9 (Morbid Obesity) ([facility]) Oligomenorrhea PCOS (polycystic ovarian syndrome) Cannabis Use Disorder, Moderate, Dependence ([facility]) Bipolar II Disorder ([facility]) Social History Tobacco Use Smoking status: Every [...] and frontal sinus tenderness present. Mouth/Throat: Lips: [place]. Mouth: Mucous membranes are moist. Pharynx: Oropharynx [...] MIST) 0.65 % nasal spray; Use 1 [place] in the nose two times a day. [...] BP Patient gi (more content not included)... [facility] 03-29-2024 History of Presen t illness Narrative Images from the original note were not included. [facility] NOTE Subjective Jennifer Berry is a 33 year old year old who presents to the [facility] care today with complaint of Nasal congestion, [...] Obesity, Class Iii, Bmi 40-49.9 (Morbid Obesity) ([facility]) Oligomenorrhea PCOS (polycystic ovarian syndrome) Cannabis Use Disorder, Moderate, Dependence ([facility]) Bipolar II Disorder ([facility]) Social History Tobacco Use Smoking status: Every [...] and frontal sinus tenderness present. Mouth/Throat: Lips: [place]. Mouth: Mucous membranes are moist. Pharynx: Oropharynx [...] MIST) 0.65 % nasal spray; Use 1 [place] in the nose two times a day. [...] agreeable with treatment plan. Jenna Swan APRN [facility] 03/29/2024 1:47 PM documented in this encounter [facility] 03-29-2024 Instructions Jenna Swan APRN.CNP - 03/29/2024 [...] You may also try the [employer] [place] phone number 7-268-J-CAN-NOW ( ) or visit them on the internet, http://EventBuilder/ . Adult Sinusitis Patient Education What is Sinusitis? Sinusitis [rine-ycc-lsyz-tis] is inflammation of the sinuses or swelling [...] help. You may be instructed to take ivto-uip-ctlcmbu medications for symptoms. including fever reducers acetaminophen or ibuprofen, nasal saline spray, cough and cold preparations and decongestants as prescribed by the physician, nurse practitioner or physician trust manager assistant. Self-Care and Prevention: Rest Fluids for hydration Good hand washing Humidifier Avoid smoking and exposure to second hand smoke Avoid sick contacts documented in this encounter [facility] 02-10-2023 History of Presen t illness Narrative [...] A MOLECULAR (POC) - neg To take fpmw-zwe-igwbvmx medications for symptom management. Potential red flag symptoms discussed with the patient. Reviewed appropriate action plan to take if red flag symptoms occur. Patient agreeable to treatment plan. Nieves Conner APRN.[facility] documented in this encounter [facility] 01-13-2023 History of Presen t illness Narrative Scan on 01/13/2023 5:52 AM by Provider, ERIK Whitlock: Consultation - Emergency Medicine documented in this encounter [facility] 12-14-2021 Miscellaneous Notes Reorder request for Levsin [...] 2021 7:28 AM documented in this encounter [facility] Discharge summary Note Date/Time January 13, 2023 5:46am [facility] Medical Records Department [address] [place] [address] Emergency Department Summary 01/13/23 MR#: [id number] Acct: [id number] Name: JENNIFER BERRY Rep #:[id number] : 1990 32 From: Markell Jacques MD [...] safe at home: Yes additional social history: [employer] [place] Patient is currently unemployed ROS ROS ED [...] your Primary Care Provider. Call [facility] ([phone]) or report to the closest Emergency Room. Call 911 if necessary. 01/13/23 0545 <Electronically signed by Markell Jacques MD> Cosigner Signature (if applicable): CC: Dr. Ene Phillips MD ~ Signed Work Phone: Evaluation note* Diagnosis Nausea Nausea alone Abdominal pain, generalized Diarrhea, unspecified type documented in this encounter [facility] noteNo assessment information availableWFayette [facility] Work Phone: Evaluation note* Diagnosis Sore throat- Primary Acute pharyngitis documented in this encounter [facility] note* Diagnosis Bacterial sinusitis- Primary Unspecified sinusitis (chronic) Acute cough Encounter for smoking cessation counseling Counseling on substance use and abuse Elevated blood pressure reading without diagnosis of hypertension documented in this encounter [facility] note* Diagnosis Toothache- Primary Unspecified disorder of the teeth and supporting structures [facility] Additional Instructions Patient history of Keflex 500 mg 4 times a day. The prescription was handwritten due to us being on downtime for the computers. Warm compresses. Follow-up with not improving or return if worse. Work Phone: Summary Purpose Family History No Family History Records Found Relationship Condition Age at Onset Recorded Date/T betzaida Not Specified Diabetes mellitus Unknown Cardiac disease Unknown mother Malignant neoplasm Unknown aunt Malignant neoplasm Unknown grandmother Malignant neoplasm Unknown Advance Directives No Advanced Directives Records FoundDocuments on File Type Date Recorded Patient Cadet Deck Expl anation Advance Directive(s) 01/12/2021 11:04 AM Advance Directive(s) 09/05/2018 2:50 PM Advance Directive Response Recorded Date/ Time Advance Directives No July 4:46pm Living Will No August 22, 2021 6:19pm Power of Field Laborer No August 22 6:19pm Additional Source Comments INFORMATION SOURCE (unrecogn ized section and content) DATE CREATED AUTHOR 08/10/2018 [facility] Reference Lab DATE CREATED AUTHOR AUTHOR'S ORGANIZ ATION 09/09/2018 [facility] DATE CREATED AUTHOR AUTHOR'S ORGANIZ ATION 09/29/2018 [facility] DATE CREATED AUTHOR AUTHOR'S ORGANIZ ATION 01/16/2023 [facility] DATE CREATED AUTHOR AUTHOR'S ORGANIZ ATION 09/13/2024 [facility] Source Comments (unrecognize d section and content) In the event this informatio n is protected by the Federal Confidentiality of Alcohol and Drug Abuse Patient Records regulations: The Federal rules restrict any use of the information to criminally investigate or prosecute any alcohol or drug abuse patient.[facility] the event this information is protected by the Federal Confidentiality of Alcohol and Drug Abuse Patient Records regulations: The Federal rules restrict any use of the information to criminally investigate or prosecute any alcohol or drug abuse patient.[facility] the event this information is protected by the Federal Confidentiality of Alcohol and Drug Abuse Patient Records regulations: The Federal rules restrict any use of the information to criminally investigate or prosecute any alcohol or drug abuse patient.[facility] Hospital[facility] the event this information is protected by the Federal Confidentiality of Alcohol and Drug Abuse Patient Records regulations: The Federal rules restrict any use of the information to criminally investigate or prosecute any alcohol or drug abuse patient.[facility] Hospital[facility] the event this information is protected by the Federal Confidentiality of Alcohol and Drug Abuse Patient Records regulations: The Federal rules restrict any use of the information to criminally investigate or prosecute any alcohol or drug abuse patient.[facility] Hospital[facility] the event this information is protected by the Federal Confidentiality of Alcohol and Drug Abuse Patient Records regulations: The Federal rules restrict any use of the information to criminally investigate or prosecute any alcohol or drug abuse patient.[facility] Reason for Visit (unrecogniz ed section and [...] Procedures EST SAME DAY Self Jenna Swan APRN.[facility] [address] [place] [address] Referral ID Status Reason Start Date Expiration Date Visits Requested Visits Authorized [id number] New Request Financial Clearance Required - Self Pay 4 06/27/2024 1 1 Reason Comments Dental Problem L lower tooth infect ion x2 days Care Teams (unrecognized sec tion and content) Stallion Manager Relationship Specialty Start Date End Date Ene Phillips MD [address], [place] [id number] PCP - General Family Practice 06/06/15 Team Status: Active Member Role Status Dates No Primary Care Physician Family Provider Active Dr. Ene Phillips MD Primary Care Provider Active Team Status: Inactive Member Role Status Dates Dr. Ene Phillips MD Primary Care Provider Active Dr. Markell Jacques MD Emergency Provider Active Stallion Manager Relationship Specialty Start Date End Date Ene Phillips MD [address] [place], [place] [id number] PCP - General Family Medicine 06/06/15 Stallion Manager Relationship Specialty Start Date End Date Ene Phillips MD [address] [place], [place] [id number] PCP - General Family Medicine 06/06/15 Stallion Manager Relationship Specialty Start Date End Date Ene Phillips MD [address] [place] [id number] PCP - General Family Medicine 06/06/15 Goals [...] BE BASED ON THE PRIMARY CLINICAL RECORDS. [facility] [employer] [facility]. provides no warranty or guarantee of the accuracy or completeness of information in this document.
[2025-01-03 00:24] LABS: Mucous, Urine 0 SEEN /hpf (<or=2+); Red Blood Cells-Urine 0 SEEN /hpf (0-5)
[2025-01-03 00:26] LABS: Color, Urine Yellow (Yellow); Glucose, Dipstick Normal (Normal); Ketone-Dipstick Negative (Negative); Leukocyte Esterase-Dipstick Negative /ul (Negative); Nitrite-Dipstick Negative (Negative); Occult Blood-Urine Negative /ul (Negative); Protein-Dipstick 15 mg/dl (Negative); Specific Gravity, Urine 1.020 (1.002-1.030); Urine Bilirubin Dipstick Negative (Negative)
[2025-01-03 00:49] LABS: Squamous Epithelial Cells - UA 10-25 SEEN /hpf (5-10)
[2025-01-03 00:53] LABS: Magnesium 2.4 mg/dL (1.5-2.2)
[2025-01-03] MEDS: 0.9% Normal Saline (1000mL) 1,000 ML 150 ML IV ×4 (01:17→21:03)
[2025-01-03] MEDS: Azithromycin 500 MG in 0.9% Normal Saline (250mL Bag) 250 ML 250 MG IV (01:17)
[2025-01-03] MEDS: Piperacil/Tazobactam 3.375 GM in 0.9% Normal Saline (50mL MB+) 50 ML IV ×4 (02:23→21:06)
[2025-01-03 04:06] LABS: Hematocrit 44.4 % (37-47); Hemoglobin 14.7 g/dL (12.0-15.0); Immature Granulocytes Count 0.030 X10^3/uL (0.0-0.0); Mean Corp Hgb Conc 33.1 g/dL (32-36); Mean Corpuscular Volume 90.4 fL (81-99); Mean Platelet Vol. 9.9 fl (6.2-12.0); NRBC Flagged by Analyzer 0 % (0-5); Platelet Count 210 K/mm3 (150-450); RBC Distribution Width CV 11.9 % (11.6-14.6); RBC Distribution Width SD 39.7 fl (35.1-43.9); Red Blood Count 4.91 M/mm3 (4.2-5.4); White Blood Count 9.6 K/mm3 (4.4-11.0)
--- NOTE | 2025-01-03 04:10 | RAD_ITS ---
PROCEDURE: CHEST 1 VIEW (PORTABLE) 01/03/2025 REASON FOR EXAM: PNA; LIKELY DUE TO ASPIRATION. TECHNIQUE: Frontal view of the chest. COMPARISON: 01/02/2025 FINDINGS: Scoliosis. Rotated patient. ETT tip at thoracic inlet. Enteric tube tip in stomach lumen. Under aerated lungs. Left base opacity favoring atelectasis. Right central lung curvy linear opacity favoring atelectasis. No effusion or pneumothorax. RAD/Chest 1 View (Portable) IMPRESSION: Improving aeration in the right mid lung. Bilateral airspace disease favoring atelectasis, consolidation not excluded. R ecommend follow up imaging. Reading Location: [facility]-
[2025-01-03 04:37] LABS: AST(SGOT) 19 U/L (<=31); Alanine Aminotransfer ALT/SGPT 17 U/L (<=34); Albumin, Serum 3.5 g/dL (3.5-5.0); Alkaline Phosphatase 42 U/L (35-104); Anion Gap 10 (5-15); BUN 9 mg/dL (4-19); BUN/Creat Ratio 9.7 RATIO (10-20); Calcium,Total 8.5 mg/dL (7.6-11.0); Carbon Dioxide 24.3 mmol/L (21.0-32.0); Chloride 108 mmol/L (98-108); Estimated Creatinine Clearance 141.64 ml/min (50-250); Globulin 2.5 g/dL (2.2-4.2); Glucose 83 mg/dL (70-99); Potassium 3.9 mmol/L (3.3-5.1)
[2025-01-03 05:42] LABS: Allen Test Positive; Base Excess 4 mmol/L (-2 to +2); FI02 40.0; PEEP 5; PO2 74 mmHG (75-100); RR 18; SITE L Radial; SO2 95 % (95-99)
[2025-01-03] MEDS: 0.9% Saline Lock 10 ML Syringe IV (06:33)
[2025-01-03] MEDS: TITRATION PARAMETER CHANGE 1 EACH IV (06:33)
--- NOTE | 2025-01-03 07:18 | EX.PCM.CONCC ---
Assessment & Plan Assessment/Plan (1) Acute respiratory failure with hypoxia and hypercapnia: PLAN: Plan RECOMMENDATIONS: 1. Continue assist-control mode mechanical ventilation. Continue to wean FiO2 as tolerated to maintain saturations at or above 90%. 2. Continue empiric antibiotics, pending sputum culture results. 3. Continue appropriate DVT and GI prophylaxis. 4. Propofol and fentanyl for sedation. Goal to maintain a RASS of -1 to 1. 5. Okay to initiate tube feeding today for nutritional support. 6. Begin spontaneous awakening and breathing trials beginning tomorrow. IMPRESSIONS: 1. Acute respiratory failure with hypoxemia and hypercapnia The patient initially presented to the emergency department as an intentional overdose and subsequently developed worsening agitation while in the ED, which required administration of Haldol, Benadryl and Geodon. Unfortunately, the patient developed worsening in her respiratory status, likely secondary to depressed respiratory drive in the setting of sedative medication administration and was ultimately intubated. The patient did have a questionable infiltrate on chest x-ray and was noted to have low-grade fevers overnight. Therefore, antibiotics have been initiated, pending sputum culture results. The patient will be maintained on assist-control mode mechanical ventilation, with a goal to wean FiO2 to maintain saturations at or above 90%. She will be continued on fentanyl and propofol for sedation. Appropriate ICU prophylaxis will be continued. Nutritional support will be initiated today as tolerated. Anticipate beginning spontaneous awakening and breathing trials, beginning tomorrow. 2. Intentional overdose/suicide attempt Continue supportive measures as noted above. The patient will require evaluation by psychiatric services once medically cleared. 3. History of depression/morbid obesity/PCOS/chronic tobacco dependency Complicates care, management, recovery and prognosis. Continue supportive measures as noted above. Okay to initiate tube feeding today for nutritional support. TIME: 38 minutes of critical care time, independent of procedures, was spent addressing the patient's acute respiratory failure with hypoxemia and hypercapnia, suicide attempt/intentional overdose, review of all data and collaboration with the care team. HPI Consult Data Date of Consult: 01/03/25 HPI Narrative Reason for Consultation: Respiratory failure HPI Narrative: The patient is a 34-year-old female, with a history as outlined below, who presented to the emergency department via EMS on January 02 following an intentional overdose. The patient has a history of PCOS, chronic tobacco dependency and depression. According to documentation, the patient took approximately 50 pills comprising an unknown number of Xanax, Klonopin and Topamax. In addition, prior to the suicide attempts, the patient had been struggling with family related stressors and had been performing self harming behaviors by cutting her neck. On presentation to the emergency department, the patient was documented to be afebrile and hemodynamically stable. She was initially maintaining appropriate oxygen saturations on room air. Laboratory evaluation revealed a normal white blood cell count. Hemoglobin was noted to be 16.4 g/dL with a normal platelet count. Chemistry profile was unremarkable. Lactate was within normal limits. Urine analysis was unremarkable. Toxicology screen was positive for amphetamines, benzodiazepines and cannabinoids. Alcohol level was negative. Following her initial evaluation in the emergency department, the patient became increasingly agitated and was medically managed with Geodon, Haldol and Benadryl. She subsequently developed worsening hypoxemia, necessitating intubation. There was a questionable right midlung field infiltrate noted on chest x-ray following intubation, which prompted antimicrobials to be initiated. The patient was subsequently placed on propofol and fentanyl for sedation and was admitted to the medical intensive care unit. This morning, the patient was noted to have a low-grade fever and was noted to have endotracheal tube secretions by the nursing staff. Arterial blood gas obtained this morning demonstrated a pH of 7.43 with a PCO2 of 43 and PO2 of 74. FiO2 requirement is currently 30% on assist-control mode mechanical ventilation. [facility] Medical History Hormone deficiency Depression PCOS (polycystic ovarian syndrome) Home Medications ?Medication ?Instructions ?Recorded ?Last Taken ?Type dextroamphetamine-amphetamine ER 30 mg PO DAILY 11/21/19 Unknown History 30 mg 24hr capsule,extend release topiramate 50 mg tablet 50 mg PO BID 01/02/25 Unknown History venlafaxine 150 mg 150 mg PO QHS 01/02/25 Unknown History capsule,extended release 24 hr Allergy/AdvReac Type Severity Reaction Status Date / Time buspirone (From BuSpar) Allergy Nausea Verified 08/22/21 17:13 Family History Mother Cancer cervical Aunt Cancer cervical Grandmother Cancer cervical Other Diabetes Heart disease Surgical History History of cholecystectomy Social History Smoking Status: Current every day smoker tobacco type: cigarettes alcohol intake: never substance use type: does not use caffeine: Yes what type of physical activity do you participate in: walking and bicycling frequency: 3-4 times per week seatbelt use: always do you feel safe at home: Yes additional social history: Jose Angel- [employer] [place] Patient is currently unemployed ROS Review of Systems ROS Unobtainable: due to endotracheal tube and due to mental status Physical Exam Const Constitutional Narrative: Currently intubated, sedated and mechanically ventilated. Morbidly obese. HEENT normocephalic and head/scalp atraumatic Mouth: endotracheal tube in place and OG tube in place Eyes EOMs intact bilaterally and conjunctivae normal Neck supple Neck Narrative: There is superficial lacerations over the anterior neck. General: trachea midline Chest inspection of chest normal Resp normal respiratory effort Auscultation: Negative for rales, rhonchi or wheezes Cardio S1 normal heart sound and S2 normal heart sound Rate: bradycardia GI normal to inspection, nondistended, normoactive bowel sounds Extremity no clubbing, cyanosis or edema Skin no rashes or lesions noted Neuro Sensorium / Orientation: sedated on vent Lab / Micro Data 01/03/25 03:50 01/03/25 03:50 Labs: Laboratory Results - last 24 hr 01/02/25 18:45: POC Glucose 88 01/02/25 18:54: WBC 8.3, RBC 5.40, Hgb 16.4 H, Hct 48.8 H, MCV 90.4, MCH 30.4, MCHC 33.6, RDW Std Deviation 39.5, RDW Coeff of Inderjit 11.9, Plt Count 236, MPV 10.1, Immature Gran % (Auto) 0.400, Neut % (Auto) 44.1 L, Lymph % (Auto) 45.7 H, Nance % (Auto) 7.1, Eos % (Auto) 2.2, Baso % (Auto) 0.5, Absolute Neuts (auto) 3.7, Absolute Lymphs (auto) 3.79, Nucleated RBC % 0, Sodium 138, Potassium 3.8, Chloride 104, Carbon Dioxide 23.0, Anion Gap 11, BUN 10, Creatinine 0.82, Estim Creat Clear Calc 153.12, Est GFR (MDRD) Non-Af 98, BUN/Creatinine Ratio 12.2, Glucose 78, Calcium 8.9, Magnesium 2.4 H, Total Creatine Kinase 110, Triglycerides 192, TSH 1.330, Serum , Qual NEGATIVE, Salicylates < 0.5 L, Acetaminophen < 5.0 L, Ethyl Alcohol < 10.1 01/02/25 19:07: Urine Color Yellow, Urine Clarity Sl. Cloudy, Urine pH 6.0, Ur Specific [place] 1.020, Urine Protein 15 H, Urine Glucose (UA) Normal, Urine Ketones Negative, Urine Occult Blood Negative, Urine Nitrite Negative, Urine Bilirubin Negative, Urine Urobilinogen Normal, Ur Leukocyte Esterase Negative, Urine RBC 0 SEEN, Urine WBC 0-5 SEEN, Ur Squamous Epith Cells 10-25 SEEN, Urine Bacteria 0 SEEN, Urine Mucus 0 SEEN, Urine Opiates Screen NEGATIVE, U Buprenorphine Qual PRESUMPTIVE POSITIVE, Ur Oxycodone Screen NEGATIVE, Urine Methadone Screen NEGATIVE, Urine Fentanyl Screen NEGATIVE, Ur Barbiturates Screen NEGATIVE, Ur Phencyclidine Scrn NEGATIVE, Ur Amphetamines Screen PRESUMPTIVE POSITIVE, U Benzodiazepines Scrn PRESUMPTIVE POSITIVE, Urine Cocaine Screen NEGATIVE, U Cannabinoids Screen PRESUMPTIVE POSITIVE 01/03/25 01:15: Lactic Acid 1.5 01/03/25 03:50: WBC 9.6, RBC 4.91, Hgb 14.7, Hct 44.4, MCV 90.4, MCH 29.9, MCHC 33.1, RDW Std Deviation 39.7, RDW Coeff of Inderjit 11.9, Plt Count 210, MPV 9.9, Immature Gran % (Auto) 0.300, Neut % (Auto) 63.2, Lymph % (Auto) 29.7, Nance % (Auto) 5.4, Eos % (Auto) 1.2, Baso % (Auto) 0.2, Absolute Neuts (auto) 6.1, Absolute Lymphs (auto) 2.86, Nucleated RBC % 0, Sodium 142, Potassium 3.9, Chloride 108, Carbon Dioxide 24.3, Anion Gap 10, BUN 9, Creatinine 0.90, Estim Creat Clear Calc 141.64, Est GFR (MDRD) Non-Af 87, BUN/Creatinine Ratio 9.7 L, Glucose 83, Calcium 8.5, Phosphorus 3.8, Total Bilirubin 0.55, AST 19, ALT 17, Alkaline Phosphatase 42, Total Protein 6.0, Albumin 3.5, Globulin 2.5, Albumin/Globulin Ratio 1.4 Micro: Microbiology 01/03/25 01:00 Mucosa - Nasopharyngeal Respiratory Panel (PCR) - Preliminary 01/02/25 19:07 Urine Catheter - Rodriges Legionella Antigen - Final 01/02/25 19:07 Urine Catheter - Catheter Streptococcus pneumoniae Antigen (M - Final ABG Data ABG results: ABG 01/02/25 01/03/25 23:07 05:39 Specimen Type ART ART Sample Site R Radial L Radial pH 7.32 L 7.43 Bicarbonate Actual 25.9 28.6 H Total CO2 28 30 Base Excess 0 4 H O2 Saturation 93 L 95 O2 % 50.0 40.0 ABG pCO2 50.1 H 43.3 ABG pO2 71 L 74 L Dru Test Positive Positive Respiration Rate 16 18 O2 Delivery Device ET Tube Adult Vent Vent Mode AC AC Tidal Volume 400.0 400.0 POC PEEP 8 5 Imaging Radiology Impression Chest X-Ray 01/02/25 22:50 IMPRESSION: Successful tube placement. Right mid lung airspace disease possibly pneumonia. Reading Location: [facility] Chest X-Ray 01/03/25 04:10 IMPRESSION: Improving aeration in the right mid lung. Bilateral airspace disease favoring atelectasis, consolidation not excluded. Recommend follow up imaging. Reading Location: [facility] Charges/Coding Procedures Hospitalists Procedures: 05236 Critical Care 1st Hr
--- NOTE | 2025-01-03 07:22 | PN.HOSP_ITS ---
Reason for Visit Chief Complaint: Suicide Attempt with Intentional Overdose. Subjective Subjective Patient is a 34-year-old lady admitted with an intentional drug overdose in apparent suicide attempt. Patient was intubated as a result of respiratory depression. Admitted to the intensive care unit for subsequent management Objective Data Objective Data Vital Signs: Vital Signs Temp Pulse Resp BP Pulse Ox O2 Del Method O2 Flow Rate 100.0 F H 62 18 118/72 95 Mechanical Ventilator 5 01/03/25 06:00 01/03/25 07:10 01/03/25 07:10 01/03/25 07:00 01/03/25 07:10 01/03/25 07:00 01/02/25 22:22 FiO2 40 01/03/25 07:10 Oxygen Flow Rate (L/min) 5 Oxygen Delivery Method Mechanical Ventilator Weight: 154.1 kg Body Mass Index (BMI) 51.5 Intake & Output: Intake and Output for Last 24 Hours 01/01/25 01/02/25 01/03/25 23:59 23:59 23:59 Intake Total 1007.36 / 1007.36 1489.41 / 1489.41 Output Total 1250 / 1250 Balance 1007.36 / 1007.36 239.41 / 239.41 Lab / Micro Data 01/03/25 03:50 01/03/25 03:50 Labs: Laboratory Results - last 24 hr 01/02/25 18:45: POC Glucose 88 01/02/25 18:54: WBC 8.3, RBC 5.40, Hgb 16.4 H, Hct 48.8 H, MCV 90.4, MCH 30.4, MCHC 33.6, RDW Std Deviation 39.5, RDW Coeff of Inderjit 11.9, Plt Count 236, MPV 10.1, Immature Gran % (Auto) 0.400, Neut % (Auto) 44.1 L, Lymph % (Auto) 45.7 H, [place] % (Auto) 7.1, Eos % (Auto) 2.2, Baso % (Auto) 0.5, Absolute Neuts (auto) 3.7, Absolute Lymphs (auto) 3.79, Nucleated RBC % 0, Sodium 138, Potassium 3.8, Chloride 104, Carbon Dioxide 23.0, Anion Gap 11, BUN 10, Creatinine 0.82, Estim Creat Clear Calc 153.12, Est GFR (MDRD) Non-Af 98, BUN/Creatinine Ratio 12.2, Glucose 78, Calcium 8.9, Magnesium 2.4 H, Total Creatine Kinase 110, Triglycerides 192, TSH 1.330, Serum , Qual NEGATIVE, Salicylates < 0.5 L, Acetaminophen < 5.0 L, Ethyl Alcohol < 10.1 01/02/25 19:07: Urine Color Yellow, Urine Clarity Sl. Cloudy, Urine pH 6.0, Ur Specific [place] 1.020, Urine Protein 15 H, Urine Glucose (UA) Normal, Urine Ketones Negative, Urine Occult Blood Negative, Urine Nitrite Negative, Urine Bilirubin Negative, Urine Urobilinogen Normal, Ur Leukocyte Esterase Negative, Urine RBC 0 SEEN, Urine WBC 0-5 SEEN, Ur Squamous Epith Cells 10-25 SEEN, Urine Bacteria 0 SEEN, Urine Mucus 0 SEEN, Urine Opiates Screen NEGATIVE, U Buprenorphine Qual PRESUMPTIVE POSITIVE, Ur Oxycodone Screen NEGATIVE, Urine Methadone Screen NEGATIVE, Urine Fentanyl Screen NEGATIVE, Ur Barbiturates Screen NEGATIVE, Ur Phencyclidine Scrn NEGATIVE, Ur Amphetamines Screen PRESUMPTIVE POSITIVE, U Benzodiazepines Scrn PRESUMPTIVE POSITIVE, Urine Cocaine Screen NEGATIVE, U Cannabinoids Screen PRESUMPTIVE POSITIVE 01/03/25 01:15: Lactic Acid 1.5 01/03/25 03:50: WBC 9.6, RBC 4.91, Hgb 14.7, Hct 44.4, MCV 90.4, MCH 29.9, MCHC 33.1, RDW Std Deviation 39.7, RDW Coeff of Inderjit 11.9, Plt Count 210, MPV 9.9, Immature Gran % (Auto) 0.300, Neut % (Auto) 63.2, Lymph % (Auto) 29.7, [place] % (Auto) 5.4, Eos % (Auto) 1.2, Baso % (Auto) 0.2, Absolute Neuts (auto) 6.1, Absolute Lymphs (auto) 2.86, Nucleated RBC % 0, Sodium 142, Potassium 3.9, Chloride 108, Carbon Dioxide 24.3, Anion Gap 10, BUN 9, Creatinine 0.90, Estim Creat Clear Calc 141.64, Est GFR (MDRD) Non-Af 87, BUN/Creatinine Ratio 9.7 L, Glucose 83, Calcium 8.5, Phosphorus 3.8, Total Bilirubin 0.55, AST 19, ALT 17, Alkaline Phosphatase 42, Total Protein 6.0, Albumin 3.5, Globulin 2.5, Albumin/Globulin Ratio 1.4 Micro: Microbiology 01/03/25 01:00 Mucosa - Nasopharyngeal Respiratory Panel (PCR) - Preliminary 01/02/25 19:07 Urine Catheter - Rodriges Legionella Antigen - Final 01/02/25 19:07 Urine Catheter - Catheter Streptococcus pneumoniae Antigen (M - Final ABG Data ABG results: ABG 01/02/25 01/03/25 23:07 05:39 Specimen Type ART ART Sample Site R Radial L Radial pH 7.32 L 7.43 Bicarbonate Actual 25.9 28.6 H Total CO2 28 30 Base Excess 0 4 H O2 Saturation 93 L 95 O2 % 50.0 40.0 ABG pCO2 50.1 H 43.3 ABG pO2 71 L 74 L Dru Test Positive Positive Respiration Rate 16 18 O2 Delivery Device ET Tube Adult Vent Vent Mode AC AC Tidal Volume 400.0 400.0 POC PEEP 8 5 Radiography Diagnostic Testing: Radiology Impression Chest X-Ray 01/02/25 22:50 IMPRESSION: Successful tube placement. Right mid lung airspace disease possibly pneumonia. Reading Location: [place] [address] Chest X-Ray 01/03/25 04:10 IMPRESSION: Improving aeration in the right mid lung. Bilateral airspace disease favoring atelectasis, consolidation not excluded. Recommend follow up imaging. Reading Location: [place] [address] Physical Exam Narrative GENERAL: Sedated on the vent HEENT: Atraumatic; normocephalic EYES; Anicteric, Normal Conjunctiva NECK; supple, normal thyroid, RESPIRATORY: Diminished to auscultation CARDIOVASCULAR: Regular S1 S2, GI: soft, normoactive bowel sounds, : No Renal angle tenderness; EXTREMITIES: Bipedal edema, no clubbing, MUSCULOSKELETAL: no muscle wasting NEURO: Awake; no lateralizing signs. SKIN: No Rash PSYCH; Flat affect Assessment & Plan Assessment/Plan (1) Intentional overdose: QUALIFIERS: Encounter type: initial encounter Qualified Code(s): T50.902A - Poisoning by unspecified drugs, medicaments and biological substances, intentional self-harm, initial encounter (2) Acute respiratory failure with hypoxia and hypercapnia: PLAN: Plan Patient is a 34-year-old lady admitted with an intentional drug overdose in apparent suicide attempt 1. Intentional drug overdose in an apparent suicide attempt ? Patient was intubated in the emergency department and admitted to the intensive care unit patient was intubated given respiratory depression. Subsequent management including referral to the crisis team will be made once patient is weaned off the vent 2. Drug induced respiratory depression resulting in acute hypoxic and hypercapnic respiratory failure ? Patient being intubated, Consult was placed to pulmonary medicine/critical care?case discussed with Dr. Kern, will defer vent management to him 3. Suspected aspiration pneumonia ? Patient has low-grade fever, chest x-ray did showBilateral airspace disease favoring atelectasis, consolidation not excluded. Patient subsequently started on piperacillin/tazobactam. Cultures sent 4. Severe depression ? Resulting in suicide attempt plan is to consult the crisis team once patient is medically stable and has been weaned off the vent 5. Class III obesity with BMI of 51 ? Complicating patient's care 6. Polycystic ovarian disease -Per history 7. Tobacco dependence ? Plan is to equal opportunity counselor patient on cessation once weaned off the vent 8. ADHD ? Patient is on Adderall held on admission 9. DVT prophylaxis ? Lovenox 40 mg subcu twice daily Time spent in the patient's overall evaluation,decision-making process, review of diagnostic data, adjustment of management, discussion with other providers, nursing nursing and ancillary staff involved in patient's care documentation, 52 Minutes Charges/Coding Visit Charges Inpatient E&M: 09986 [facility] L3
[2025-01-03] MEDS: CHLORHEXIDINE GLUC 2% CLOTH 1 EACH TOWELETTE TOPICAL (08:34)
[2025-01-03] MEDS: Chlorhexidine 15 ML PO ×2 (08:35→21:10)
[2025-01-03] MEDS: Pantoprazole Sodium 40 MG in 0.9% Normal Saline (100mL MB+) 100 ML 330 MG IV (08:36)
[2025-01-03] MEDS: Vital High Protein 1,000 ML 20 ML GT (11:16)
[2025-01-03] MEDS: Propofol 10MG/Ml 1,000 MG/100 ML Bottle 9.2 MG CONT INF ×2 (11:58→21:38)
[2025-01-03] MEDS: fentaNYL drip 100 ML 7.5 MCG CONT INF (11:58)
[2025-01-03] MEDS: Acetaminophen 650 MG/20 ML UDC GT (18:06)
[2025-01-04] VITALS (25 sets, daily range): BP systolic 90–156; BP diastolic 55–99; PULSE 46–82; RESP 16–28; TEMP 36.9–38.3; O2SAT 87–100; BMI 53.2
[2025-01-04] MEDS: Propofol 10MG/Ml 1,000 MG/100 ML Bottle 18.5 MG CONT INF (01:55)
[2025-01-04] MEDS: fentaNYL drip 100 ML 7.5 MCG CONT INF (02:00)
[2025-01-04] MEDS: 0.9% Normal Saline (1000mL) 1,000 ML 150 ML IV ×3 (03:46→18:36)
[2025-01-04] MEDS: 0.9% Saline Lock 10 ML Syringe IV (04:10)
[2025-01-04] MEDS: CHLORHEXIDINE GLUC 2% CLOTH 1 EACH TOWELETTE TOPICAL (04:11)
[2025-01-04 04:12] LABS: Hematocrit 39.5 % (37-47); Hemoglobin 13.1 g/dL (12.0-15.0); Immature Granulocytes Count 0.040 X10^3/uL (0.0-0.0); Mean Corp Hgb Conc 33.2 g/dL (32-36); Mean Corpuscular Volume 91.2 fL (81-99); Mean Platelet Vol. 10.1 fl (6.2-12.0); NRBC Flagged by Analyzer 0 % (0-5); Platelet Count 196 K/mm3 (150-450); RBC Distribution Width CV 12.1 % (11.6-14.6); RBC Distribution Width SD 40.6 fl (35.1-43.9); Red Blood Count 4.33 M/mm3 (4.2-5.4); White Blood Count 11.4 K/mm3 (4.4-11.0)
[2025-01-04 05:03] LABS: Anion Gap 8 (5-15); BUN 9 mg/dL (4-19); BUN/Creat Ratio 10.3 RATIO (10-20); Calcium,Total 8.2 mg/dL (7.6-11.0); Carbon Dioxide 22.8 mmol/L (21.0-32.0); Chloride 112 mmol/L (98-108); Estimated Creatinine Clearance 147.87 ml/min (50-250); Glucose 93 mg/dL (70-99); Magnesium 2.2 mg/dL (1.5-2.2); Potassium 3.6 mmol/L (3.3-5.1)
[2025-01-04] MEDS: Piperacil/Tazobactam 3.375 GM in 0.9% Normal Saline (50mL MB+) 50 ML IV ×3 (05:11→23:36)
--- NOTE | 2025-01-04 07:00 | PN.CC_ITS ---
Assessment & Plan Assessment/Plan (1) Acute respiratory failure with hypoxia and hypercapnia: PLAN: Plan RECOMMENDATIONS: 1. Proceed with a trial of extubation this morning. 2. Once extubated, wean supplemental oxygen to maintain saturations at or above 90%. 3. Continue empiric antibiotics, pending finalized culture results. 4. Continue appropriate DVT prophylaxis. 5. Perform bedside swallow evaluation and advance diet accordingly. 6. Encourage incentive spirometer use and mobilize patient as tolerated. 7. Crisis evaluation. IMPRESSIONS: 1. Acute respiratory failure with hypoxemia and hypercapnia The patient initially presented to the emergency department as an intentional overdose and subsequently developed worsening agitation while in the ED, which required administration of Haldol, Benadryl and Geodon. Unfortunately, the patient developed worsening in her respiratory status, likely secondary to depressed respiratory drive in the setting of sedative medication administration and was ultimately intubated. The patient did have a questionable infiltrate on chest x-ray and was noted to have low-grade fevers. With supportive care, the patient has improved from a respiratory perspective and was able to be extubated on the morning of January 04. I would plan to continue antibiotics, pending finalized culture results. Supplemental oxygen will be continued, if needed, to maintain saturations at or above 90%. Recommend performing bedside swallow evaluation and advancing diet accordingly. 2. Intentional overdose/suicide attempt Continue supportive measures as noted above. The patient will require evaluation by psychiatric services. 3. History of depression/morbid obesity/PCOS/chronic tobacco dependency Complicates care, management, recovery and prognosis. Continue supportive measures as noted above. TIME: 34 minutes of critical care time, independent of procedures, was spent addressing the patient's acute respiratory failure with hypoxemia and hypercapnia, suicide attempt/intentional overdose, review of all data and collaboration with the care team. Subjective Subjective The patient was seen and examined at the bedside this morning. Events from the last 24 hours have been reviewed. The patient is currently afebrile, hemodynamically stable and maintaining appropriate oxygen saturations on assist- control mode mechanical ventilation with an FiO2 requirement of 30% and PEEP of 5. The patient passed her spontaneous awakening trial this morning. Accordingly, the patient was placed on a spontaneous breathing trial, which she ultimately completed without issue. Accordingly, the patient was able to be extubated. Objective Data Objective Data The patient's most recent lab work, culture data and imaging studies have all been personally reviewed. Preliminary sputum culture is only demonstrating growth of normal respiratory do. Vital Signs: Vital Signs Temp Pulse Resp BP Pulse Ox O2 Del Method O2 Flow Rate 99.8 F H 49 L 18 118/68 94 Mechanical Ventilator 5 01/04/25 06:00 01/04/25 06:41 01/04/25 06:41 01/04/25 06:00 01/04/25 06:41 01/04/25 06:00 01/02/25 22:22 FiO2 30 01/04/25 06:41 Oxygen Flow Rate (L/min) 5 Oxygen Delivery Method Mechanical Ventilator Weight: 351 lb 3.142 oz Body Mass Index (BMI) 53.2 Intake & Output: Intake and Output for Last 24 Hours 01/02/25 01/03/25 01/04/25 23:59 23:59 23:59 Intake Total 1007.36 / 1007.36 4963.49 / 5007.69 1244.65 / 1244.65 Output Total 2150 / 2250 200 / 200 Balance 1007.36 / 1007.36 2813.49 / 2757.69 1044.65 / 1044.65 Lab / Micro Data Attestation: I reviewed the patient's lab results. 01/04/25 04:05 01/04/25 04:05 Labs: Laboratory Results - last 24 hr 01/04/25 04:05: WBC 11.4 H, RBC 4.33, Hgb 13.1, Hct 39.5, MCV 91.2, MCH 30.3, MCHC 33.2, RDW Std Deviation 40.6, RDW Coeff of Inderjit 12.1, Plt Count 196, MPV 10.1, Immature Gran % (Auto) 0.300, Neut % (Auto) 65.8, Lymph % (Auto) 26.9, [place] % (Auto) 5.7, Eos % (Auto) 1.0, Baso % (Auto) 0.3, Absolute Neuts (auto) 7.5, Absolute Lymphs (auto) 3.08, Nucleated RBC % 0, Sodium 143, Potassium 3.6, Chloride 112 H, Carbon Dioxide 22.8, Anion Gap 8, BUN 9, Creatinine 0.88, Estim Creat Clear Calc 147.87, Est GFR (MDRD) Non-Af 90, BUN/Creatinine Ratio 10.3, Glucose 93, Calcium 8.2, Phosphorus 2.9, Magnesium 2.2 Micro: Microbiology 01/03/25 01:00 Mucosa - Nasopharyngeal Respiratory Panel (PCR) - Final 01/02/25 23:20 Sputum, Tracheal Aspirate Gram Stain - Final 01/02/25 19:07 Urine Catheter - Rodriges Legionella Antigen - Final 01/02/25 19:07 Urine Catheter - Catheter Streptococcus pneumoniae Antigen (M - Final Physical Exam Const Constitutional Narrative: Remains intubated and mechanically ventilated. Currently tolerating spontaneous mode of mechanical ventilation. HEENT normocephalic and head/scalp atraumatic Mouth: endotracheal tube in place and OG tube in place Eyes EOMs intact bilaterally and conjunctivae normal Neck supple Neck Narrative: There is superficial lacerations over the anterior neck. General: trachea midline Chest inspection of chest normal Resp normal respiratory effort Auscultation: Negative for rales, rhonchi or wheezes Cardio regular rate, regular rhythm, S1 normal heart sound and S2 normal heart sound GI normal to inspection, nondistended, normoactive bowel sounds Extremity no clubbing, cyanosis or edema Skin no rashes or lesions noted Neuro Neuro Narrative: Alert and following commands appropriately. Charges/Coding Procedures Hospitalists Procedures: [id number] Critical Care 1st Hr
[2025-01-04] MEDS: Chlorhexidine 15 ML PO (07:20)
--- NOTE | 2025-01-04 07:21 | PCM.PN.HOSP ---
Reason for Visit Chief Complaint: Suicide Attempt with Intentional Overdose. Subjective Subjective Patient seen currently off sedation. Follows commands and is currently undergoing breathing trial Objective Data Objective Data Vital Signs: Vital Signs Temp Pulse Resp BP Pulse Ox O2 Del Method O2 Flow Rate 100.3 F H 50 L 18 119/73 94 Mechanical Ventilator 5 01/04/25 07:00 01/04/25 07:00 01/04/25 07:00 01/04/25 07:00 01/04/25 07:00 01/04/25 07:00 01/02/25 22:22 FiO2 30 01/04/25 07:00 Oxygen Flow Rate (L/min) 5 Oxygen Delivery Method Mechanical Ventilator Weight: 159.3 kg Body Mass Index (BMI) 53.2 Intake & Output: Intake and Output for Last 24 Hours 01/02/25 01/03/25 01/04/25 23:59 23:59 23:59 Intake Total 1007.36 / 1007.36 4963.49 / 5007.69 1244.65 / 1244.65 Output Total 2150 / 2250 200 / 200 Balance 1007.36 / 1007.36 2813.49 / 2757.69 1044.65 / 1044.65 Lab / Micro Data 01/04/25 04:05 01/04/25 04:05 Labs: Laboratory Results - last 24 hr 01/04/25 04:05: WBC 11.4 H, RBC 4.33, Hgb 13.1, Hct 39.5, MCV 91.2, MCH 30.3, MCHC 33.2, RDW Std Deviation 40.6, RDW Coeff of Inderjit 12.1, Plt Count 196, MPV 10.1, Immature Gran % (Auto) 0.300, Neut % (Auto) 65.8, Lymph % (Auto) 26.9, [place] % (Auto) 5.7, Eos % (Auto) 1.0, Baso % (Auto) 0.3, Absolute Neuts (auto) 7.5, Absolute Lymphs (auto) 3.08, Nucleated RBC % 0, Sodium 143, Potassium 3.6, Chloride 112 H, Carbon Dioxide 22.8, Anion Gap 8, BUN 9, Creatinine 0.88, Estim Creat Clear Calc 147.87, Est GFR (MDRD) Non-Af 90, BUN/Creatinine Ratio 10.3, Glucose 93, Calcium 8.2, Phosphorus 2.9, Magnesium 2.2 Micro: Microbiology 01/03/25 01:00 Mucosa - Nasopharyngeal Respiratory Panel (PCR) - Final 01/02/25 23:20 Sputum, Tracheal Aspirate Gram Stain - Final 01/02/25 19:07 Urine Catheter - Rodriges Legionella Antigen - Final 01/02/25 19:07 Urine Catheter - Catheter Streptococcus pneumoniae Antigen (M - Final Physical Exam Narrative GENERAL: Awake on the vent HEENT: Atraumatic; normocephalic EYES; Anicteric, Normal Conjunctiva NECK; supple, normal thyroid, RESPIRATORY: Diminished to auscultation CARDIOVASCULAR: Regular S1 S2, GI: soft, normoactive bowel sounds, : No Renal angle tenderness; EXTREMITIES: Bipedal edema, no clubbing, MUSCULOSKELETAL: no muscle wasting NEURO: no lateralizing signs. SKIN: No Rash PSYCH; Flat affect Assessment & Plan Assessment/Plan (1) Intentional overdose: QUALIFIERS: Encounter type: initial encounter Qualified Code(s): T50.902A - Poisoning by unspecified drugs, medicaments and biological substances, intentional self-harm, initial encounter (2) Acute respiratory failure with hypoxia and hypercapnia: PLAN: Plan Patient is a 34-year-old lady admitted with an intentional drug overdose in apparent suicide attempt 1. Intentional drug overdose in an apparent suicide attempt ? Patient was intubated in the emergency department and admitted to the intensive care unit patient was intubated given respiratory depression. Subsequent management including referral to the crisis team will be made once patient is weaned off the vent 2. Drug induced respiratory depression resulting in acute hypoxic and hypercapnic respiratory failure ? Patient being intubated, Consult was placed to pulmonary medicine/critical care?case discussed with Dr. Kern, will defer vent management to him ? 01/04/2025; patient remains on the vent. Currently off sedation and is undergoing weaning trial 3. Suspected aspiration pneumonia ? Patient has low-grade fever, chest x-ray did showBilateral airspace disease favoring atelectasis, consolidation not excluded. Patient subsequently started on piperacillin/tazobactam. Cultures sent ? 01/04/2025; patient continues to spike low-grade fever 100.3. Cultures were sent the day prior results 4. Severe depression ? Resulting in suicide attempt plan is to consult the crisis team once patient is medically stable and has been weaned off the vent 5. Class III obesity with BMI of 51 ? Complicating patient's care 6. Polycystic ovarian disease -Per history 7. Tobacco dependence ? Plan is to career technical counselor patient on cessation once weaned off the vent 8. ADHD ? Patient is on Adderall held on admission 9. DVT prophylaxis ? Lovenox 40 mg subcu twice daily Charges/Coding Visit Charges Inpatient E&M: 72448 Subs Hosp L2
--- NOTE | 2025-01-04 09:22 | CASEMGMT ---
Addendum entered by Nadia Gomez 01/04/25 14:09: ASHLEY collaborated with Radha, [facility] crisis, who reports that she will reach out to [place]. If there are no beds, Radha reports that there is a small amount of funding to assist pt with placement at another facility. Pt will need to be medically optimized for placement. ASHLEY remains available to follow. BJ Hayes Addendum entered by Nadia Gomez 01/04/25 11:01: ASHLEY called [facility] to verify receipt. Maria Antonia reports that a front desk worker will be available to evaluate sometime around 13:00. ASHLEY updated ICU staff. ASHLEY remains available to follow. BJ Hayes Original Note: Social Work- ASHLEY received notice from associate professor plant pathology that pt has been extubated and is medically ready for crisis evaluation. ASHLEY faxed crisis referral to [facility]. ASHLEY updated bedside nurse and pt and pt spouse notified of crisis referral. ASHLEY remains available to follow. BJ Hayes
[2025-01-04] MEDS: Pantoprazole Sodium 40 MG in 0.9% Normal Saline (100mL MB+) 100 ML 330 MG IV (10:00)
--- NOTE | 2025-01-04 16:54 | CASEMGMT ---
Social Work Pt admitted with no health insurance. ASHLEY spoke with Brianda from [employer]. Brianda spoke with pt's and pt is over income for assistance programs. ASHLEY met with pt's spouse and provided information on prescription assistance programs, [employer], [employer], [employer] and [employer]. Spouse had not additional questions at this time. BJ Tovar
[2025-01-05] MEDS: 0.9% Normal Saline (1000mL) 1,000 ML 150 ML IV (01:15)
[2025-01-05] MEDS: Piperacil/Tazobactam 3.375 GM in 0.9% Normal Saline (50mL MB+) 50 ML IV (05:42)
[2025-01-05 05:43] VITALS: BP 148/97; PULSE 58; RESP 18; TEMP 36.6; O2SAT 97
[2025-01-05 07:17] LABS: Hematocrit 40.4 % (37-47); Hemoglobin 13.8 g/dL (12.0-15.0); Immature Granulocytes Count 0.030 X10^3/uL (0.0-0.0); Mean Corp Hgb Conc 34.2 g/dL (32-36); Mean Corpuscular Volume 88.0 fL (81-99); Mean Platelet Vol. 9.9 fl (6.2-12.0); NRBC Flagged by Analyzer 0 % (0-5); Platelet Count 200 K/mm3 (150-450); RBC Distribution Width CV 11.5 % (11.6-14.6); RBC Distribution Width SD 37.2 fl (35.1-43.9); Red Blood Count 4.59 M/mm3 (4.2-5.4); White Blood Count 8.9 K/mm3 (4.4-11.0)
[2025-01-05 07:38] LABS: Anion Gap 11 (5-15); BUN 3 mg/dL (4-19); BUN/Creat Ratio 5.1 RATIO (10-20); Calcium,Total 8.7 mg/dL (7.6-11.0); Carbon Dioxide 19.4 mmol/L (21.0-32.0); Chloride 108 mmol/L (98-108); Estimated Creatinine Clearance 200.19 ml/min (50-250); Glucose 74 mg/dL (70-99); Potassium 3.8 mmol/L (3.3-5.1)
--- NOTE | 2025-01-05 07:53 | PCM.PN.HOSP ---
Reason for Visit Chief Complaint: Suicide Attempt with Intentional Overdose. Subjective Subjective Patient was successfully weaned off the vent the day prior and transferred to [facility] unit. Bedside speech eval performed did not go as expected. Speech therapy subsequently kept patient n.p.o. with plans for patient to undergo modified barium swallow on 01/07/2025 Objective Data Objective Data Vital Signs: Vital Signs Temp Pulse Resp BP Pulse Ox O2 Del Method O2 Flow Rate 97.8 F 58 L 18 148/97 H 97 Room Air 5 01/05/25 05:43 01/05/25 05:43 01/05/25 05:43 01/05/25 05:43 01/05/25 05:43 01/05/25 05:43 01/02/25 22:22 FiO2 30 01/04/25 15:30 Oxygen Flow Rate (L/min) 5 Oxygen Delivery Method Room Air Weight: 159.3 kg Body Mass Index (BMI) 53.2 Intake & Output: Intake and Output for Last 24 Hours 01/03/25 01/04/25 01/05/25 23:59 23:59 23:59 Intake Total 4963.49 / 5007.69 4324.98 / 4324.98 1047.5 / 1047.5 Output Total 2150 / 2250 450 / 450 Balance 2813.49 / 2757.69 3874.98 / 3874.98 1047.5 / 1047.5 Lab / Micro Data 01/05/25 06:49 01/05/25 06:49 Labs: Laboratory Results - last 24 hr 01/05/25 06:49: WBC 8.9, RBC 4.59, Hgb 13.8, Hct 40.4, MCV 88.0, MCH 30.1, MCHC 34.2, RDW Std Deviation 37.2, RDW Coeff of Inderjit 11.5 L, Plt Count 200, MPV 9.9, Immature Gran % (Auto) 0.300, Neut % (Auto) 54.6, Lymph % (Auto) 36.4, [place] % (Auto) 6.2, Eos % (Auto) 1.9, Baso % (Auto) 0.6, Absolute Neuts (auto) 4.8, Absolute Lymphs (auto) 3.23, Nucleated RBC % 0, Sodium 139, Potassium 3.8, Chloride 108, Carbon Dioxide 19.4 L, Anion Gap 11, BUN 3 L, Creatinine 0.65 L, Estim Creat Clear Calc 200.19, Est GFR (MDRD) Non-Af 120, BUN/Creatinine Ratio 5.1 L, Glucose 74, Calcium 8.7 Micro: Microbiology 01/02/25 23:20 Sputum, Tracheal Aspirate Gram Stain - Final 01/02/25 23:20 Sputum, Tracheal Aspirate Respiratory Culture - Preliminary Appears to be normal respiratory do. Further studies to follow. 01/03/25 01:00 Mucosa - Nasopharyngeal Respiratory Panel (PCR) - Final 01/02/25 19:07 Urine Catheter - Rodriges Legionella Antigen - Final 01/02/25 19:07 Urine Catheter - Catheter Streptococcus pneumoniae Antigen (M - Final Physical Exam Narrative GENERAL: In no apparent distress HEENT: Atraumatic; normocephalic EYES; Anicteric, Normal Conjunctiva NECK; supple, normal thyroid, RESPIRATORY: Diminished to auscultation CARDIOVASCULAR: Regular S1 S2, GI: soft, normoactive bowel sounds, : No Renal angle tenderness; EXTREMITIES: Bipedal edema, no clubbing, MUSCULOSKELETAL: no muscle wasting NEURO: no lateralizing signs. SKIN: No Rash PSYCH; Flat affect Assessment & Plan Assessment/Plan (1) Intentional overdose: QUALIFIERS: Encounter type: initial encounter Qualified Code(s): T50.902A - Poisoning by unspecified drugs, medicaments and biological substances, intentional self-harm, initial encounter (2) Acute respiratory failure with hypoxia and hypercapnia: PLAN: Plan Patient is a 34-year-old lady admitted with an intentional drug overdose in apparent suicide attempt 1. Intentional drug overdose in an apparent suicide attempt ? Patient was intubated in the emergency department and admitted to the intensive care unit patient was intubated given respiratory depression. Subsequent management including referral to the crisis team will be made once patient is weaned off the vent ? 01/05/2025; patient was weaned off the vent on 01/04/2025 plan is for patient to be assessed by the crisis team after his speech and swallow eval 2. Drug induced respiratory depression resulting in acute hypoxic and hypercapnic respiratory failure ? Patient being intubated, Consult was placed to pulmonary medicine/critical care?case discussed with Dr. Kern, will defer vent management to him ? 01/04/2025; patient remains on the vent. Currently off sedation and is undergoing weaning trial ? 01/05/2025;Patient was successfully weaned off the vent the day prior and transferred to [facility]. Bedside speech eval performed did not go as expected. Speech therapy subsequently kept patient n.p.o. with plans for patient to undergo modified barium swallow on 01/07/2025 3. Suspected aspiration pneumonia ? Patient has low-grade fever, chest x-ray did showBilateral airspace disease favoring atelectasis, consolidation not excluded. Patient subsequently started on piperacillin/tazobactam. Cultures sent ? 01/04/2025; patient continues to spike low-grade fever 100.3. Cultures were sent the day prior results 4. Severe depression ? Resulting in suicide attempt plan is to consult the crisis team once patient is medically stable and has been weaned off the vent 5. Class III obesity with BMI of 51 ? Complicating patient's care 6. Polycystic ovarian disease -Per history 7. Tobacco dependence ? Plan is to reimbursement counselor patient on cessation once weaned off the vent 8. ADHD ? Patient is on Adderall held on admission 9. DVT prophylaxis ? Lovenox 40 mg subcu twice daily 10. Dysphagia ? Patient scheduled to undergo modified barium swallow on 01/07/2025 Time spent in the patient's overall evaluation,decision-making process, review of diagnostic data, adjustment of management, discussion with other providers, nursing nursing and ancillary staff involved in patient's care documentation, 38 Minutes Charges/Coding Visit Charges Inpatient E&M: 29297 [facility] Hosp L2
--- NOTE | 2025-01-05 07:56 | NURSING ---
counseling center called and would like documents stating that the patient is ineligible for medicaid faxed to [phone]
--- NOTE | 2025-01-05 08:04 | CASEMGMT ---
[facility] called asking for documentation that pt does not qualify for Medicaid. ASHLEY faxed to Crisis the note from both ASHLEY Puentes and from Brianda Frye from [facility] stating that pt does not qualify for Medicaid. STEFANY Salvador
[2025-01-05 08:25] VITALS: BP 159/107; PULSE 59; RESP 18; TEMP 36.8; O2SAT 99
--- NOTE | 2025-01-05 08:35 | PN.CC_ITS ---
Objective Data Objective Data Vital Signs: Vital Signs Last response 3 Temperature 36.8 C 01/05/25 08:25 Temperature Source Oral 01/05/25 08:25 Pulse Rate 59 L 01/05/25 08:25 Pulse Strength Normal (2+) 01/04/25 07:56 Respiratory Rate 18 01/05/25 08:25 Respiratory Effort Non-Labored 01/05/25 08:02 Respiratory Depth Normal 01/05/25 08:02 Respiratory Pattern Normal 01/05/25 08:02 Blood Pressure 159/107 H 01/05/25 08:25 Blood Pressure Mean 124 01/05/25 08:25 Blood Pressure Source Monitor 01/05/25 08:25 Blood Pressure Position Sitting 01/05/25 08:25 Blood Pressure Location Right Forearm 01/05/25 08:25 Pulse Ox 99 01/05/25 08:25 Oxygen Delivery Method Room Air 01/05/25 08:25 Oxygen Flow Rate (L/min) 5 01/02/25 22:22 Fraction of Inspired Oxygen (FIO2) 30 01/04/25 15:30 I&O: I&O Last 24 Hours 3 01/04/25 01/04/25 01/05/25 11:59 23:59 11:59 Intake Total 3244.98 / 4324.98 1080 / 4324.98 1047.5 / 1047.5 Output Total 200 / 450 250 / 450 Balance 3044.98 / 3874.98 830 / 3874.98 1047.5 / 1047.5 I&O: Total Stay 3 01/02/25 18:37 thru 01/05/25 03:45 Intake Total 56862.33 Output Total 2600 Balance 8743.33 Current Meds Ordered / Administered: Current meds ordered / Administered 3 Generic Name Dose Route Start Last Admin Trade Name Freq PRN Reason Stop Dose Admin Acetaminophen 650 mg 01/03/25 17:42 01/03/25 18:06 Acetaminophen 650 Mg/20 Ml Udc GT 650 mg Q6H PRN PRN Administration FEVER Enoxaparin Sodium 40 mg 01/03/25 10:00 01/04/25 23:36 Enoxaparin 40 Mg/0.4 Ml Syringe SC 40 mg BID DELLA Administration Piperacillin Sod/Tazobactam 50 mls @ 12.5 mls/hr 01/02/25 23:58 01/05/25 05:42 Sod 3.375 gm/ Sodium Chloride IV 12.5 mls/hr Q8 DELLA Administration Pantoprazole Sodium 40 mg/ 100 mls @ 330 mls/hr 01/03/25 10:00 01/04/25 10:32 Sodium Chloride IV Infused Q24 DELLA Infusion Sodium Chloride 250 mls @ 15 mls/hr 01/03/25 00:58 IV .[id number] PRN Saline Flush Sodium Chloride 250 mls @ 15 mls/hr 01/03/25 00:58 IV .[id number] PRN Additional IVPB Infusion Sodium Chloride 1,000 mls @ 150 mls/hr 01/03/25 15:20 01/05/25 01:15 IV 150 mls/hr .[id number] DELLA Administration Nicotine 21 mg 01/02/25 21:45 01/04/25 10:31 Nicotine 21 Mg Patch TD 21 mg DAILY DELLA Administration Ondansetron HCl 4 mg 01/03/25 00:34 Ondansetron 4 Mg/2 Ml Vial IV Q6H PRN PRN NAUSEA/VOMITING Sodium Chloride 10 - 40 ml 01/03/25 00:58 01/04/25 04:10 0.9% Saline Lock 10 Ml Syringe IV 20 ml UD PRN Administration SALINE FLUSH Lab / Micro Data 01/05/25 06:49 01/05/25 06:49 Labs: Laboratory Results - last 24 hr 01/05/25 06:49: WBC 8.9, RBC 4.59, Hgb 13.8, Hct 40.4, MCV 88.0, MCH 30.1, MCHC 34.2, RDW Std Deviation 37.2, RDW Coeff of Inderjit 11.5 L, Plt Count 200, MPV 9.9, Immature Gran % (Auto) 0.300, Neut % (Auto) 54.6, Lymph % (Auto) 36.4, [place] % (Auto) 6.2, Eos % (Auto) 1.9, Baso % (Auto) 0.6, Absolute Neuts (auto) 4.8, Absolute Lymphs (auto) 3.23, Nucleated RBC % 0, Sodium 139, Potassium 3.8, Chloride 108, Carbon Dioxide 19.4 L, Anion Gap 11, BUN 3 L, Creatinine 0.65 L, Estim Creat Clear Calc 200.19, Est GFR (MDRD) Non-Af 120, BUN/Creatinine Ratio 5.1 L, Glucose 74, Calcium 8.7 Micro: Microbiology 01/02/25 23:20 Sputum, Tracheal Aspirate Gram Stain - Final 01/02/25 23:20 Sputum, Tracheal Aspirate Respiratory Culture - Preliminary Appears to be normal respiratory do. Further studies to follow. Assessment and Plan . Assessment and plan: CRITICAL CARE BRIEF UPDATE NOTE Pt was downgraded to med surg floor overnight. Vital signs stable on RA. Continue recommendations as per previous note. We will sign off at this time, but please call us back if any questions or if clinical worsening. Blanco Murray MD
--- NOTE | 2025-01-05 10:17 | PCM.DC.SUM ---
Providers Date of Admission: 01/02/25 Date of Discharge: 01/05/25 Primary Care Physician: Dr. Luis Fernando Vásquze MD Consultations 01/03/25 00:35 Consult: Banquet Line Cook / Pulmonary Medicine Routine Consulting Provider: Intensivists/Pulmonary Med Reason for Consult: Suicide Attempt with Intentional O/D on vent. EMERGENT Consult: No MD Notified: Yes Date Notified: 01/03/25 Time Notified: 06:23 Method of Notification: Text Reason For Visit: INTENTIONAL OVERDOSE ON VENT Diagnosis Discharge Diagnosis (1) Intentional overdose: Status: Acute Code(s): T50.902A - Poisoning by unspecified drugs, medicaments and biological substances, intentional self-harm, initial encounter Qualifiers: Encounter type: initial encounter Qualified Code(s): T50.902A - Poisoning by unspecified drugs, medicaments and biological substances, intentional self-harm, initial encounter (2) Acute respiratory failure with hypoxia and hypercapnia: Status: Acute Code(s): J96.01 - Acute respiratory failure with hypoxia; J96.02 - Acute respiratory failure with hypercapnia Plan Patient is a 34-year-old lady admitted with an intentional drug overdose in apparent suicide attempt 1. Intentional drug overdose in an apparent suicide attempt ? Patient was intubated in the emergency department and admitted to the intensive care unit patient was intubated given respiratory depression. Subsequent management including referral to the crisis team will be made once patient is weaned off the vent ? 01/05/2025; patient was weaned off the vent on 01/04/2025 plan is for patient to be assessed by the crisis team after his speech and swallow eval ? Patient passed a speech and swallow eval discharge to an inpatient psych facility 2. Drug induced respiratory depression resulting in acute hypoxic and hypercapnic respiratory failure ? Patient being intubated, Consult was placed to pulmonary medicine/critical care?case discussed with Dr. Kern, will defer vent management to him ? 01/04/2025; patient remains on the vent. Currently off sedation and is undergoing weaning trial ? 01/05/2025;Patient was successfully weaned off the vent the day prior and transferred to [facility] unit. Bedside speech eval performed did not go as expected. Speech therapy subsequently kept patient n.p.o. with plans for patient to undergo modified barium swallow on 01/07/2025 ? Repeat speech and swallow eval on the day of patient's discharge was unremarkable. Patient was discharged home 3. Suspected aspiration pneumonia ? Patient has low-grade fever, chest x-ray did showBilateral airspace disease favoring atelectasis, consolidation not excluded. Patient subsequently started on piperacillin/tazobactam. Cultures sent ? 01/04/2025; patient continues to spike low-grade fever 100.3. Cultures were sent the day prior results ? Patient was discharged on Augmentin 4. Severe depression ? Resulting in suicide attempt plan is to consult the crisis team once patient is medically stable and has been weaned off the vent 5. Class III obesity with BMI of 51 ? Complicating patient's care 6. Polycystic ovarian disease -Per history 7. Tobacco dependence ? Plan is to consumer credit counselor patient on cessation once weaned off the vent 8. ADHD ? Patient is on Adderall held on admission 9. DVT prophylaxis ? Lovenox 40 mg subcu twice daily 10. Dysphagia ? Patient scheduled to undergo modified barium swallow on 01/07/2025 Time spent in the patient's overall evaluation,decision-making process, review of diagnostic data, adjustment of management, discussion with other providers, nursing nursing and ancillary staff involved in patient's care documentation, 38 Minutes Medications at Discharge Home Medications dextroamphetamine-amphetamine ER 30 mg 24hr capsule,extend release 30 mg PO DAILY 11/21/19 topiramate 50 mg tablet 50 mg PO BID 01/02/25 venlafaxine 150 mg capsule,extended release 24 hr 150 mg PO QHS 01/02/25 amoxicillin 875 mg-potassium clavulanate 125 mg tablet 1 tab PO BID #20 tabs 01/05/25 Physical Exam Narrative GENERAL: In no apparent distress HEENT: Atraumatic; normocephalic EYES; Anicteric, Normal Conjunctiva NECK; supple, normal thyroid, RESPIRATORY: Diminished to auscultation CARDIOVASCULAR: Regular S1 S2, GI: soft, normoactive bowel sounds, : No Renal angle tenderness; EXTREMITIES: Bipedal edema, no clubbing, MUSCULOSKELETAL: no muscle wasting NEURO: no lateralizing signs. SKIN: No Rash PSYCH; Flat affect Weight / BMI Weight Weight: 159.3 kg Body Mass Index (BMI) 53.2 ABG / Lab / Microbiology Data 01/05/25 06:49 01/05/25 06:49 Laboratory: Laboratory Results - last 24 hr 01/05/25 06:49: WBC 8.9, RBC 4.59, Hgb 13.8, Hct 40.4, MCV 88.0, MCH 30.1, MCHC 34.2, RDW Std Deviation 37.2, RDW Coeff of Inderjit 11.5 L, Plt Count 200, MPV 9.9, Immature Gran % (Auto) 0.300, Neut % (Auto) 54.6, Lymph % (Auto) 36.4, [place] % (Auto) 6.2, Eos % (Auto) 1.9, Baso % (Auto) 0.6, Absolute Neuts (auto) 4.8, Absolute Lymphs (auto) 3.23, Nucleated RBC % 0, Sodium 139, Potassium 3.8, Chloride 108, Carbon Dioxide 19.4 L, Anion Gap 11, BUN 3 L, Creatinine 0.65 L, Estim Creat Clear Calc 200.19, Est GFR (MDRD) Non-Af 120, BUN/Creatinine Ratio 5.1 L, Glucose 74, Calcium 8.7 Microbiology: Microbiology 01/02/25 23:20 Sputum, Tracheal Aspirate Gram Stain - Final 01/02/25 23:20 Sputum, Tracheal Aspirate Respiratory Culture - Final 01/03/25 01:00 Mucosa - Nasopharyngeal Respiratory Panel (PCR) - Final 01/02/25 19:07 Urine Catheter - Rodriges Legionella Antigen - Final 01/02/25 19:07 Urine Catheter - Catheter Streptococcus pneumoniae Antigen (M - Final D/C Instructions DC O2, CPAP, BIPAP Needs Home O2 Discharge instructions: No Meaningful Use Info Meaningful Use Meaningful Use Diagnoses (Choose all that apply): None applicable Discharge Plan Admission Admit Date/Time: 01/02/25 23:47 Attending Provider: Edward Caldwell Primary Care Provider: Luis Fernando Vásquez Consulting Providers: Edward Nj; Davide Kessler; Jerry Campos; Kenney Martin; Rex Kern; Edward Spencer; Pedro Rodriguez; Vignesh Mares; Pilar Elias; Otis Velasco; Jakub Lang; Harrison Maciel; Lindsay King; Abram Dawn; Suleman,Yessica; Erick,Spenser; Gucci Hernandez; Christina,Gaetano; Bravo Sanchez; Vanita Bowen; Rayne Morrow; Jairo Peace; Blanco Murray; Tomy Velázquez Discharge Orders/Prescriptions Prescriptions: New amoxicillin-pot clavulanate 875-125 mg tablet 1 tab PO BID Qty: 20 0RF No Action dextroamphetamine-amphetamine 30 MG capsule,extended release 24hr 30 mg PO DAILY venlafaxine 150 mg capsule,extended release 24hr 150 mg PO QHS topiramate 50 mg tablet 50 mg PO BID Referrals / Follow Up: Luis Fernando Vásquez MD [Primary Care Provider] - Within 2 Weeks Disposition Disposition (needs filled in before D/C Order can be placed): Psychiatric Hospital or Unit Charges/Coding Visit Charges Inpatient E&M: 04439 Disch Hosp >30min
--- NOTE | 2025-01-05 10:23 | NURSING ---
patient accepted and able to transfer to [facility] in [place], dual diagnosis unit, dr.steven anthony call intake for report # [phone]
[2025-01-05] MEDS: Pantoprazole Sodium 40 MG in 0.9% Normal Saline (100mL MB+) 100 ML 330 MG IV (10:52)
[2025-01-05 10:55] VITALS: BP 138/99; PULSE 64; RESP 18; TEMP 36.7; O2SAT 99
--- NOTE | 2025-01-05 11:13 | NURSING ---
[facility] ETA 230 pm
[2025-01-05 12:30] VITALS: BP 139/99; PULSE 64; RESP 19; TEMP 36.7; O2SAT 99
== END 2025-01-05 13:15 | DRG 917 ==
LOC: ED 19:09 → ICU 01-03 00:13 → MS3 01-04 17:07
PROVIDERS: Admitting Provider Internal Medicine; Emergency Provider Emergency Medicine; PCP Family Medicine; Visit Provider Internal Medicine
DX: T42.4X2A Poisoning by benzodiazepines, intentional self-harm, initial encounter (principal); J96.01 Acute respiratory failure with hypoxia; J69.0 Pneumonitis due to inhalation of food and vomit; J96.02 Acute respiratory failure with hypercapnia; Z68.43 Body mass index [BMI] 50.0-59.9, adult; F32.2 Major depressive disorder, single episode, severe without psychotic features; E66.01 Morbid (severe) obesity due to excess calories; F17.210 Nicotine dependence, cigarettes, uncomplicated; T42.6X2A Poisoning by other antiepileptic and sedative-hypnotic drugs, intentional self-harm, initial encounter; F90.9 Attention-deficit hyperactivity disorder, unspecified type; E66.813 Obesity, class 3; Z63.6 Dependent relative needing care at home; Z79.899 Other long term (current) drug therapy; Z91.51 Personal history of suicidal behavior
CPT/HCPCS: 31500; 31720; 36415; 36569; 36600; 51702; 71045; 80048; 80053; 80143; 80179; 80307; 81001; 82077; 82550; 82803; 82962; 83605; 83735; 84100; 84443; 84478; 84703; 85025; 87040; 87070; 87205; 87449; 87633; 92526; 92610; 93005; 94002; 94003; 94660; 97802; 99252; 99285; A4216; G0463; J0696; J2405; J3486